=== PATIENT | male | born 1985 | race Caucasian/White ===

== ENCOUNTER 2023-05-20 20:34 | Outpatient (REF) | payer MEDICARE, MEDICAID, SELFPAY ==
--- OUTSIDE RECORDS SUMMARY | 2023-05-20 20:39 | XMS_ITS | Continuity of Care Document ---
Author Name Unknown Organization [facility] Address [address] [place] [address] Care Team Providers Care Personal Lines Sales Rep Name Role Phone Natan Sandoval Primary Care Physician Encounter [facility] Date(s): 12/28/22 - 12/28/22 [facility] [address] [place] [address] Encounter Diagnosis Dry mouth(Discharge Diagnosis) - 12/28/22 Occasional use of marijuana(Discharge Diagnosis) - 12/28/22 Discharge Disposition: Home or Self Care Attending Physician: Lino Bernardo MD Admitting Physician: Lino Bernardo MD Allergies, Adverse Reactions, Alerts Substance Reaction Severity Status BEE VENOM PROTEIN (HONEY BEE) Unknown Active INSECT VENOM Unknown Active penicillins Unknown Active Assessment and Plan Extracted from: Title:Clinical Document Author:Courtney Landrum te:12/28/22 Diagnosis: 1. Dry mouth Comment: Diagnosis: 2. Occasional use of marijuana Comment: Diagnosis: Mouth pain Comment: Diagnosis: Skin rash Comment: Future Appointments Future Scheduled Tests Laboratory* Semen Analysis Post Vasectomy 06/25/22 Radiology* XR Ankle Complete 3+ Views Left 12/16/22 * XR Ankle Complete 3+ Views Left 12/16/22 Functional Status 12/28/22 Family Member Travel History No recent t ravel Recent Travel History No recent travel Other exposure to Infectious Disease Non e Immunizations Given and Recorded Vaccine Date Status Refusal Reason tetanus/diphth/pertuss (Tdap) adult/adol 04/30/22 Given tetanus/diphth/pertuss (Tdap) adult/adol 08/21/11 Recorded influenza virus vaccine, inactivated 04/30/22 Give n SARS-CoV-2 mRNA (todiyanameran 12y+) bival 04/30/22 Given influenza virus vaccine, live 1 03/01/21 Recorded influenza virus vaccine, live 05/11/20 Recorded SARS-CoV-2 (COVID-19) mRNA-1273 vaccine 09/05/20 R ecorded SARS-CoV-2 (COVID-19) mRNA-1273 vaccine 08/08/20 R ecorded hepatitis B adult vaccine 05/10/05 Recorded hepatitis B adult vaccine 10/29/04 Recorded hepatitis B adult vaccine 09/18/04 Recorded hepatitis B pediatric vaccine 05/09/05 Recorded hepatitis B pediatric vaccine 10/16/04 Recorded hepatitis B pediatric vaccine 02/08/99 Recorded hepatitis B pediatric vaccine 09/02/97 Recorded tetanus-diphth toxoids (Td) adult/adol 02/11/04 Re corded 1Result Comment: cleanse area well Medications EpiPen 2-Rex 0.3 mg injectable kit 0.3 mg =, IM, Once, # 1 EA, 0 Refill(s), Pharmacy: [id number], 175.28, cm, 11/17/21 8:57:00 EDT, Height/Length Dosing, 168.28, kg, 11/17/21 8:57:00 EDT, Weight Dosing Start Date: 12/24/21 Status: Ordered Gas-X Prevention 600 units oral capsule 600 units 1 cap, Oral, BID, PRN as needed for gas, # 60 cap, 1 Refill(s), Pharmacy: [facility] [place], 178, cm, 01/15/22 8:47:00 EDT, Height/Length Dosing, 160, kg, 01/15/22 8:47:00 EDT, Weight Dosing Start Date: 09/24/22 Status: Ordered ibuprofen 600 mg oral tablet See Instructions Start Date: 11/21/21 Status: Ordered Lexapro 10 mg oral tablet 10 mg = 1 tab, Oral, Daily, # 90 tab, 3 Refill(s), Pharmacy: [facility] [place], 178, cm, 01/15/22 8:47:00 EDT, Height/Length Dosing, 160, kg, 01/15/22 8:47:00 EDT, Weight Dosing Start Date: 09/24/22 Status: Ordered pantoprazole 40 mg oral delayed release tablet 1 tab, Oral, BID, # 56 tab, 0 Refill(s), Pharmacy: [facility] [id number], 175, cm, 12/07/22 16:45:00 EDT, Height/Length Dosing, 151, kg, 12/07/22 16:45:00 EDT, Weight Dosing Start Date: 12/23/22 Status: Ordered Rybelsus 14 mg oral tablet 14 mg = 1 tab, Oral, Daily, take at least 30 minutes before first food, beverage, or other oral meds, # 90 tab, 3 Refill(s), Pharmacy: [facility] [place], 178, cm, 01/15/22 8:47:00 EDT, Height/Length Dosing, 160, kg, 01/15/22 8:47:00 EDT, Weight Dosing Start Date: 09/24/22 Status: Ordered SEROquel 100 mg oral tablet 100 mg = 1 tab, Oral, every evening, # 90 tab, 3 Refill(s), Pharmacy: [facility] [place], 178, cm, 01/15/22 8:47:00 EDT, Height/Length Dosing, 160, kg, 01/15/22 8:47:00 EDT, Weight Dosing Start Date: 09/24/22 Status: Ordered Problem List Condition Confirmation Course Effective Dates Status H ealth Status Informant Allergic reaction to bee sting Confirmed Active Anxiety Confirmed Active Attention deficit hyperactivity disorder, predominantly inattentive type Confirmed 12/01/20 Active Chronic gingivitis Confirmed 12/01/20 Active Depressive disorder Confirmed 08/06/22 Active Developmental delay Confirmed 12/01/20 Active Dysphagia Confirmed 12/01/20 Active Gastroesophageal reflux disease Confirmed 12/01/20 Active H/O: alcoholism Confirmed 12/01/20 Active History of drug abuse Confirmed 12/01/20 Active Intermittent explosive disorder Confirmed 12/01/20 Active Low self-esteem Confirmed 12/01/20 Active Major depressive disorder Confirmed 12/01/20 Active Obesity Confirmed Active Obstructive sleep apnea syndrome Confirmed Active Severe obesity Confirmed Active Left ankle sprain Confirmed Active Dermatophytosis of the trunk Confirmed Active Umbilical hernia Confirmed Active Ureterolithiasis Confirmed Active Vitamin D deficiency Confirmed 12/01/20 Active Procedures Procedure Date Related Diagnosis Body Site Status Cystoureteroscopy 02/20/22 Complet ed Hernia repair 02/21/21 Completed EGD - Esophagogastroduodenoscopy 1 01/11/21 Completed Barium swallow 09/07/20 Completed MRI of brain 09/26/02 Completed Eye surgery 2 05/11/96 Completed Wrist surgery 3 Completed 1Gerd, esophagitis, gastritis, small hiatal hernia 2repair of left orbit after trauma 3ORIF Left distal radius Results Laboratory List Name Date Strep A (ID NOW) 12/28/22 Most recent to oldest [Reference Range]: 1 Strep A -IDNOW [Not Detected] Not Detect ed (12/28/22 11:20 AM) Vital Signs Most recent to oldest [Reference Range]: 1 Temperature Temporal Artery [36-38 Deg C ] 36.0 Deg C (12/28/22 11:01 AM) Peripheral Pulse Rate [60-100 bpm] 85 bp m (12/28/22 11:01 AM) Respiratory Rate [12-24 br/min] 18 br/mi n (12/28/22 11:01 AM) Blood Pressure [90-140/60-90 mmHg] 157/1 35mmHg *HI* (12/28/22 11:01 AM) Weight Dosing 152.00 kg (12/28/22 11:06 AM) Weight Estimated 152.00 kg (12/28/22 11:01 AM) Height/Length Dosing 176.000 cm (12/28/22 11:06 AM) Height/Length Estimated 176.000 cm (12/28/22 11:01 AM) Social History Social History Type Response Tobacco Former tobacco user Tobacco Use:. Sex Male Hospital Discharge Instructions Patient Education 12/28/2022 10:59:11 Preventing Marijuana Misuse Preventing Marijuana Misuse Marijuana is a mixture of the dried leaves and sears of the hemp plant Cannabis sativa. The plant's active ingredients (cannabinoids) change the chemistry of the brain. If you smoke or eat marijuana, you will experience changes in the way you think, feel, and behave. What is marijuana used for? In some cases, marijuana is prescribed by a health care provider (medical marijuana) for temporary relief from a medical condition. It can have medical effects, such as: ??? Reduced nausea. ??? Increased appetite. ??? Reduced muscle spasm. ??? Pain relief. ??? Anxiety relief. Many people use marijuana for recreational purposes because it helps them relax and puts them in a pleasurable mood (marijuana high). How can marijuana use affect me? Marijuana affects you both mentally and physically. Using marijuana can make you feel high and relaxed. It can also have negative effects, both short term and oil heaterman. When used for recreational purposes, marijuana is often used in higher doses and for longer periods. High doses of marijuana can cause unpleasant side effects. It is also possible to become addicted to this drug. Short-term effects of marijuana use include: ??? Changes in mood and perception, such as an altered sense of time. ??? Increased heart rate. ??? Increased appetite. ??? Slowed movement, coordination, and reaction time. ??? Poor memory, judgment, and problem-solving ability. ??? Drowsiness. ??? Bloodshot eyes and changes in vision. ??? Coughing. High doses of marijuana can cause: ??? Panic. ??? Anxiety. ??? Mental confusion. ??? Severe dizziness. ??? Vomiting. ??? Hallucinations. This means you see, hear, taste, smell, or feel things that are not real. ??? Coma. What can happen if I keep using marijuana? If you use marijuana for a long time, it can have long-term effects such as: ??? Higher risk of health problems, such as: ??? Lung and breathing problems. ??? Possible higher risk of heart and cardiovascular problems or testicular cancer. ??? Mental and physical dependence (addiction). ??? Slowed brain development in young people. Babies whose mothers used marijuana during may have an increased risk of problems with brain development and behavior. ??? Hallucinations or temporary periods of false perceptions or beliefs (paranoia). ??? Worsening of mental illness or onset of new mental illness. This can include anxiety, depression, or suicidal thoughts. ??? Difficulty maintaining healthy relationships. ??? Poor memory and difficulty concentrating and learning. This can result in decreased intelligence, poor performance at school or work, and an increased risk of dropping out of school. ??? Higher risk of using other substances like alcohol, nicotine, and illegal drugs. ??? A condition called cannabinoid hyperemesis syndrome. This causes repeated episodes of intense abdominal pain, nausea, and vomiting. Quitting marijuana after using it for a long time can cause withdrawal symptoms, such as: ??? Headache. ??? Shakiness. ??? Cravings for the drug. ??? Sweating. ??? Stomach pain, nausea, and vomiting. ??? Restlessness and trouble sleeping. ??? Anxiety, irritability, and anger. ??? Decreased appetite. What are the benefits of not using marijuana? Not using marijuana can keep you from becoming dependent on it. You can avoid the drug's negative effects on your quality of life. You can avoid accidents caused by the slowed reaction time and decreased thinking ability that are common with marijuana use and abuse. You can also prevent the long-term effects that this drug can cause. What actions can I take to stop using marijuana? If you are not physically or mentally dependent on marijuana, you should be able to stop using it on your own. Taking these actions may help: ??? Find healthy ways to cope with stress, such as exercise, meditation, or spending time with family and friends. Talk with your health care provider about how you feel and how to cope with stress. ??? Spend time with people who do not use marijuana, or make new friends who do not use marijuana. ??? Do something else instead of using marijuana. You can exercise, take up a hobby, or participatein activities that you can do with others. ??? Do not be afraid to say no if someone offers you marijuana. Speak up about why you do not want to use drugs. You can be a positive role model for others. If you cannot stop on your own, ask your health care provider for help. Treatment for marijuana addiction is similar to treatment for other addictions. It may include: ??? Cognitive-behavioral therapy (psychotherapy). This may include individual or group therapy. ??? Joining a support group. ??? Treating medical, behavioral, or mental health conditions that exist along with marijuana dependency. Where to find more information Learn more about: ??? Marijuana from the [place] National [place] on Drug Abuse: www.drugabuse.gov ??? Medical marijuana from the National Institutes of Health: nccih.nih.gov ??? Treatment options from the Substance Abuse and Mental Health Services Administration: samhsa.gov ??? Recovery from marijuana dependency from Recovery.org: www.recovery.org Contact a health care provider if: ??? You want to stop using marijuana but you cannot. ??? You have withdrawal symptoms when you try to stop using marijuana. ??? You are using marijuana every day. ??? You need to use increasing amounts of marijuana to get the same desired effect. ??? You are using marijuana along with other drugs like cocaine or alcohol. ??? You have anxiety or depression. ??? You have hallucinations or paranoia. ??? Marijuana use is interfering with your relationships or your ability to function normally at school or at work. Get help right away if: ??? You develop severe chest pain, dizziness, or shortness of breath. ??? You have severe abdominal pain, nausea, and vomiting. Summary ??? Using marijuana can make you feel high and relaxed, and if used properly, it can have some medical benefits. However, it can also have negative effects, both short term and oil heaterman. ??? High doses of marijuana can cause unpleasant side effects. These can be both physical and mental. ??? Marijuana has the potential to cause physical dependence and even addiction. ??? Long-term use may interfere with your ability to function normally at home, school, or work. Itcan sometimes lead to using other substances like alcohol, nicotine, and illegal drugs. ??? If you need help to stop using marijuana, ask your health care provider. Marijuana addiction can be treated. This information is not intended to replace advice given to you by your health care provider. Make sure you discuss any questions you have with your health care provider. Document Revised: 03/22/2022 Document Reviewed: 02/23/2020 [employer] Patient Education ?? 2022 [employer]. Follow Up Care 12/28/2022 11:01:30 With:Natan Sandoval MD Address: [facility] [address] [address]- When:1 month Physician Emergency department Note * Lino Bernardo MD: PERFORM Event Display: ED Note Physician Authored Date: [id number] DANIELITO WOODY :1985 Age:37 years Sex:Male Visit Date:12/28/2022 Primary Care Physician: Natan Sandoval MD Basic Information Time Seen: Lino Bernardo MD / 12/28/2022 11:07 Chief Complaint I did some edibles last night and I was drinking, my ??mouth feels like it's caving in, and my throat hurts, and I have a rash down below. PT denies SOB, RR unlabored History Of Present Illness: 37-year-old male??past medical history reflux,??alcohol use, depression, ARON, obesity presents with??concern for a skin rash, and sensation of??his mouth and jaw caving in. ??He states he??first noticed the symptoms after he??ate some edibles last night. ??He also was complaining of a dry mouth andstates that he felt like his??jaw was going to cave and??and was concerned about his jaw falling off.?? He also was complaining about a rash around the groin area and lower abdominal area. ??No pruritus or pain to the rash itself. ??No sickness recently cough cold congestion or fevers no chest painshortness of breath??or throat swelling. Review of Systems: Dry mouth, rash Physical Exam Vitals & Measurements T:??36.0?C ??(Temporal Artery)?? HR:??85??(Peripheral)?? RR:??18?? BP:??157/135?? SpO2:??95%?? HT:??176.000??cm?? WT:??152.00??kg??(Estimated)?? O2 Therapy:??Room air?? General: Alert and oriented, well nourished,?No??acute distress Eye: PERRL, EOMI,?Normal?conjunctiva HENT: Normocephalic Lungs: Clear to auscultation and percussion,?Non-labored?? respiration Heart:?Normal? rate,?Regular??rhythm Abdomen: Soft, non-tender, non-distended Skin: There is no evidence of erythema or skin breakdown underneath the skin folds of the abdomen of the groin bilaterally, slight skin discoloration in this area underneath the skin folds themselves Neurologic: Awake, alert and oriented X4, CN II-XII intact Psychiatric: Cooperative, appropriate mood and affect Medical Decision Makin-year-old male presents with multiple complaints,??see above. ??Vitals are stable. ??Patient states he noticed the symptoms of dry mouth and felt like his jaw was caving in after he??ate edibles last night, this is the likely etiology of his symptoms. ??He does have slightly dry mouth here, instructed??on proper hydration. ??He also had a concern about a rash around his groin area, clinically there is no evidence of a rash here, no evidence of candidal infection or skin breakdown of the lowerabdominal folds with the bilateral groin, there is however skin discoloration that is more chronic in nature??secondary to??skin on skin from??patient's obesity.?? He??requested a strep test which was performed and was negative.?? Otherwise clinically no acute respiratory distress no throat swelling or any other symptoms discharged in stable condition with primary care follow-up and return precautions 80. Procedure No Qualifying Data Assessment/Plan 1.??Dry mouth??R68.2 Ordered: Discharge Patient, 12/28/22 11:58:00 EDT, Home Independently, Constant Indicator ?? 2.??Occasional use of marijuana??F12.90 Ordered: Discharge Patient, 12/28/22 11:58:00 EDT, Home Independently, Constant Indicator ?? Patient Education Preventing Marijuana Misuse Follow Up With When Contact Information Natan Sandoval MD Within [address] [facility] [place] [address]- Additional Instructions: Medication Reconciliation Unchanged oqyar-P-evicrzrkyxgff (Gas-X Prevention 600 units oral capsule)1 Capsules Oral (given by mouth) 2 times a day as needed as needed for gas. Refills: 1. ?? EPINEPHrine (EpiPen 2-Rex 0.3 mg injectable kit)0.3 Milligrams Intramuscular (in a muscle) once. Refills: 0. ?? escitalopram (Lexapro 10 mg oral tablet)1 tab Oral (given by mouth) every day. Refills: 3. ?? ibuprofen (ibuprofen 600 mg oral tablet) ?? pantoprazole (pantoprazole 40 mg oral delayed release tablet)1 tab Oral (given by mouth) 2 times a day. Refills: 0. ?? QUEtiapine (SEROquel 100 mg oral tablet)1 tab Oral (given by mouth) every evening. Refills: 3. ?? semaglutide (Rybelsus 14 mg oral tablet)1 tab Oral (given by mouth) every day. take at least 30 minutes before first food, beverage, or other oral meds. Refills: 3. Problem List/Past Medical History Ongoing Allergic reaction to bee sting Anxiety Attention deficit hyperactivity disorder, predominantly inattentive type Chronic gingivitis Depressive disorder Dermatophytosis of the trunk Developmental delay Dysphagia Gastroesophageal reflux disease H/O: alcoholism History of drug abuse Intermittent explosive disorder Left ankle sprain Low self-esteem Major depressive disorder Obesity Obstructive sleep apnea syndrome Severe obesity Umbilical hernia Ureterolithiasis Vitamin D deficiency Historical No qualifying data Procedure/Surgical History ???Cystoureteroscopy (02/21/2022)???Hernia repair (02/22/2021)???EGD - Esophagogastroduodenoscopy (01/12/2021)???Barium swallow (09/08/2020)???MRI of brain (09/27/2002)???Eye surgery (05/12/1996)???Wrist surgery Allergies BEE VENOM PROTEIN (HONEY BEE) INSECT VENOM penicillins Social History Alcohol Current, 1-2 times per week Electronic Cigarette/Vaping Electronic Cigarette Use: Former use, quit more than 90 days ago. Employment/School Employed Home/Environment Lives with Alone. Living situation: Home/Independent. Substance Use Past, Marijuana Tobacco Former tobacco user Tobacco Use:. Family History Healthy adult: Mother and Father. Lab Results Infectious Disease?? LATEST RESULTS?? Strep A -IDNOW?? 12/28/22 11:20?? Not Detected? Electronically Signed on 12/28/22 11:59 AM Lino Bernardo MD Emergency department Discharge instructions * Lino Bernardo MD: PERFORM Event Display: ED Discharge Information Authored Date: [id number] DANIELITO WOODY :1985 Age:37 years Sex:Male Visit Date:12/28/2022 Primary Care Physician: Natan Sandoval MD Discharge Instructions We would like to thank you for allowing us to assist you with your healthcare needs. The following includes patient education materials and information regarding your injury/illness. Diagnosis from Today's Visit Dry mouth Occasional use of marijuana Discharge Vitals Temperature??(Temporal Artery) 96.8 ??F (36.0 ??C) Heart Rate??(Peripheral) 85 Respiratory Rate?? 18 Blood Pressure?? 157/135?? Height?? 69.29 in (176.000 cm) Weight??(Estimated) 335.16 lb (152.00 kg) Allergies BEE VENOM PROTEIN (HONEY BEE) INSECT VENOM penicillins What to Do Next You Need to Schedule the Following Appointments Follow Up with??Natan Sandoval MD When:??Within 1 month Where: [address] [address] Upcoming Scheduled Appointments Friday 10:00 AM EDT ?? Friday 8:30 AM EST ?? 2022 8:40 AM EST ?? You were treated today on an emergency basis; it may be ayala to contact your primary care provider to notify them of your visit today. You may have been referred to your regular doctor or a specialist, please follow up as instructed. If your condition worsens or you can't get in to see the doctor, contact the Emergency Department. Medications What How Much When Why Instructions Next Dose Unchanged oonhd-S-egxezfmueumkg (Gas-X Prevention 600units oral capsule) 1 Capsules Oral (given by mouth) 2 times a day as needed for as needed for gas Gastroesophageal reflux disease Unchanged EPINEPHrine (EpiPen 2-Rex 0.3 mg injectable kit) 0.3 Milligrams Intramuscular (in a muscle) Once Unchanged escitalopram (Lexapro 10 mg oral tablet) 1 tab Oral (given by mouth) Every day Unchanged ibuprofen (ibuprofen 600 mg oral tablet) See instructions Unchanged pantoprazole (pantoprazole 40 mg oral delayed release tablet) 1 tab Oral (given by mouth) 2 times a day Unchanged QUEtiapine (SEROquel 100 mg oral tablet) 1 tab Oral (given by mouth) Every evening Unchanged semaglutide (Rybelsus 14 mg oral tablet) 1 tab Oral (given by mouth) Every day Hyperglycemia Severe obesity take at least 30 minutes before first food, beverage, or other oral meds ?? Education Materials Preventing Marijuana Misuse Marijuana is a mixture of the dried leaves and sears of the hemp plant Cannabis sativa. The plant's active ingredients (cannabinoids) change the chemistry of the brain. If you smoke or eat marijuana, you will experience changes in the way you think, feel, and behave. What is marijuana used for? In some cases, marijuana is prescribed by a health care provider (medical marijuana) for temporary relief from a medical condition. It can have medical effects, such as: ? Reduced nausea. ? Increased appetite. ? Reduced muscle spasm. ? Pain relief. ? Anxiety relief. Many people use marijuana for recreational purposes because it helps them relax and puts them in a pleasurable mood (marijuana high). How can marijuana use affect me? Marijuana affects you both mentally and physically. Using marijuana can make you feel high and relaxed. It can also have negative effects, both short term and oil heaterman. When used for recreational purposes, marijuana is often used in higher doses and for longer periods. High doses of marijuana can cause unpleasant side effects. It is also possible to become addicted to this drug. Short-term effects of marijuana use include: ? Changes in mood and perception, such as an altered sense of time. ? Increased heart rate. ? Increased appetite. ? Slowed movement, coordination, and reaction time. ? Poor memory, judgment, and problem-solving ability. ? Drowsiness. ? Bloodshot eyes and changes in vision. ? Coughing. High doses of marijuana can cause: ? Panic. ? Anxiety. ? Mental confusion. ? Severe dizziness. ? Vomiting. ? Hallucinations. This means you see, hear, taste, smell, or feel things that are not real. ? Coma. What can happen if I keep using marijuana? If you use marijuana for a long time, it can have long-term effects such as: ? Higher risk of health problems, such as: ? Lung and breathing problems. ? Possible higher risk of heart and cardiovascular problems or testicular cancer. ? Mental and physical dependence (addiction). ? Slowed brain development in young people. Babies whose mothers used marijuana during may have an increased risk of problems with brain development and behavior. ? Hallucinations or temporary periods of false perceptions or beliefs (paranoia). ? Worsening of mental illness or onset of new mental illness. This can include anxiety, depression, or suicidal thoughts. ? Difficulty maintaining healthy relationships. ? Poor memory and difficulty concentrating and learning. This can result in decreased intelligence, poor performance at school or work, and an increased risk of dropping out of school. ? Higher risk of using other substances like alcohol, nicotine, and illegal drugs. ? A condition called cannabinoid hyperemesis syndrome. This causes repeated episodes of intense abdominal pain, nausea, and vomiting. Quitting marijuana after using it for a long time can cause withdrawal symptoms, such as: ? Headache. ? Shakiness. ? Cravings for the drug. ? Sweating. ? Stomach pain, nausea, and vomiting. ? Restlessness and trouble sleeping. ? Anxiety, irritability, and anger. ? Decreased appetite. What are the benefits of not using marijuana? Not using marijuana can keep you from becoming dependent on it. You can avoid the drug's negative effects on your quality of life. You can avoid accidents caused by the slowed reaction time and decreased thinking ability that are common with marijuana use and abuse. You can also prevent the long-term effects that this drug can cause. What actions can I take to stop using marijuana? If you are not physically or mentally dependent on marijuana, you should be able to stop using it on your own. Taking these actions may help: ? Find healthy ways to cope with stress, such as exercise, meditation, or spending time with family and friends. Talk with your health care provider about how you feel and how to cope with stress. ? Spend time with people who do not use marijuana, or make new friends who do not use marijuana. ? Do something else instead of using marijuana. You can exercise, take up a hobby, or participate in activities that you can do with others. ? Do not be afraid to say no if someone offers you marijuana. Speak up about why you do not want to use drugs. You can be a positive role model for others. If you cannot stop on your own, ask your health care provider for help. Treatment for marijuana addiction is similar to treatment for other addictions. It may include: ? Cognitive-behavioral therapy (psychotherapy). This may include individual or group therapy. ? Joining a support group. ? Treating medical, behavioral, or mental health conditions that exist along with marijuana dependency. Where to find more information Learn more about: ? Marijuana from the [place] on Drug Abuse: www.drugabuse.gov ? Medical marijuana from the National Institutes of Health: nccih.nih.gov ? Treatment options from the Substance Abuse and Mental Health Services Administration: samhsa.gov ? Recovery from marijuana dependency from Recovery.org: www.recovery.org Contact a health care provider if: ? You want to stop using marijuana but you cannot. ? You have withdrawal symptoms when you try to stop using marijuana. ? You are using marijuana every day. ? You need to use increasing amounts of marijuana to get the same desired effect. ? You are using marijuana along with other drugs like cocaine or alcohol. ? You have anxiety or depression. ? You have hallucinations or paranoia. ? Marijuana use is interfering with your relationships or your ability to function normally at schoolor at work. Get help right away if: ? You develop severe chest pain, dizziness, or shortness of breath. ? You have severe abdominal pain, nausea, and vomiting. Summary ? Using marijuana can make you feel high and relaxed, and if used properly, it can have some medical benefits. However, it can also have negative effects, both short term and snf. ? High doses of marijuana can cause unpleasant side effects. These can be both physical and mental. ? Marijuana has the potential to cause physical dependence and even addiction. ? Long-term use may interfere with your ability to function normally at home, school, or work. It cansometimes lead to using other substances like alcohol, nicotine, and illegal drugs. ? If you need help to stop using marijuana, ask your health care provider. Marijuana addiction can betreated. This information is not intended to replace advice given to you by your health care provider. Make sure you discuss any questions you have with your health care provider. Document Revised: 03/22/2022 Document Reviewed: 02/23/2020 [employer] Patient Education ?? 2022 [employer]. 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 Dry mouth Comment: Diagnosis: 2. Occasional use of marijuana Comment: Diagnosis: Mouth pain Comment: Diagnosis: Skin rash Comment: Electronically Signed on 12/28/22 12:37 PM Courtney Landrum Patient Care team information Care Team Personnel Name: Natan Sandoval MD Position: Physician Member Role: Informed Provider Address: Address: [address] Name: Amee Blackwell Position: Nurse Member Role: ED Nurse Name: Lino Bernardo MD Position: Physician Member Role: ED Physician Address: Address: [facility] [address] [place], [place] [id number] [place] [address] Care Team Related Persons Name: JOSE WEBB
--- OUTSIDE RECORDS SUMMARY | 2023-05-20 20:39 | XMS_ITS | Continuity of Care Document ---
Author Name Unknown Organization [facility] Address [address] [place] [address] Care Team Providers Care Registered Nurse Teacher Name Role Phone Natan Sandoval Primary Care Physician [facility] [address] [place] [address] Encounter Diagnosis Left ankle sprain(Discharge Diagnosis) - 12/16/22 Discharge Disposition: Home or Self Care Attending Physician: Natan Sandoval MD Admitting Physician: Natan Sandoval MD Referring Physician: Natan Sandoval MD Allergies, Adverse Reactions, Alerts Substance Reaction Severity Status BEE VENOM PROTEIN (HONEY BEE) Unknown Active INSECT VENOM Unknown Active penicillins Unknown Active Assessment and Plan Future Appointments Future Scheduled Tests Laboratory* Semen Analysis Post Vasectomy 06/25/22 Radiology* XR Ankle Complete 3+ Views Left 12/16/22 * XR Ankle Complete 3+ Views Left 12/16/22 Immunizations Given and Recorded Vaccine Date Status Refusal Reason tetanus/diphth/pertuss (Tdap) adult/adol 04/30/22 Given tetanus/diphth/pertuss (Tdap) adult/adol 08/21/11 Recorded influenza virus vaccine, inactivated 04/30/22 Give n SARS-CoV-2 mRNA (tozinameran 12y+) bival 04/30/22 Given influenza virus vaccine, [...] Once, # 1 EA, 0 Refill(s), Pharmacy: [id number], 175.28, cm, 11/17/21 8:57:00 EDT, Height/Length Dosing, 168.28, kg, 11/17/21 8:57:00 EDT, Weight Dosing Start Date: 12/24/21 Status: Ordered Gas-X Prevention 600 units oral capsule 600 units 1 cap, Oral, BID, PRN as needed for gas, # 60 cap, 1 Refill(s), Pharmacy: [facility] [place], [place], 178, cm, 01/15/22 8:47:00 EDT, Height/Length Dosing, 160, kg, 01/15/22 8:47:00 EDT, Weight Dosing Start Date: 09/24/22 Status: Ordered ibuprofen 600 mg oral tablet See Instructions Start Date: 11/21/21 Status: Ordered Lexapro 10 mg oral tablet 10 mg = 1 tab, Oral, Daily, # 90 tab, 3 Refill(s), Pharmacy: [facility] [place], [place], 178, cm, 01/15/22 8:47:00 EDT, Height/Length Dosing, 160, kg, 01/15/22 8:47:00 EDT, Weight Dosing Start Date: 09/24/22 Status: Ordered pantoprazole 40 mg oral delayed release tablet 40 mg = 1 tab, Oral, BID, Dose increase 12/02/22, # 60 tab, 1 Refill(s), Pharmacy: [facility] [place], [place], 176, cm, 09/28/22 16:21:00 EDT, Height/Length Dosing, 162.3, kg, 09/28/22 16:21:00 EDT, Weight Dosing Start Date: 12/02/22 Status: Ordered Rybelsus 14 mg oral tablet 14 mg = 1 tab, Oral, Daily, take at least 30 minutes before first food, beverage, or other oral meds, # 90 tab, 3 Refill(s), Pharmacy: [facility], 178, cm, 01/15/22 8:47:00 EDT, Height/Length Dosing, 160, kg, 01/15/22 8:47:00 EDT, Weight Dosing Start Date: 09/24/22 Status: Ordered SEROquel 100 mg oral tablet 100 mg = 1 tab, Oral, every evening, # 90 tab, 3 Refill(s), Pharmacy: [facility], 178, cm, 01/15/22 8:47:00 EDT, Height/Length Dosing, [...] orbit after trauma 3ORIF Left distal radius Social History Social History Type Response Tobacco Former tobacco user Tobacco Use:. Sex Male Patient Care team information Care Team Personnel Name: Natan Sandoval MD Position: Physician Member Role: Informed Provider Address: Address: [address] Care Team Related Persons Name: JOSE WEBB
--- OUTSIDE RECORDS SUMMARY | 2023-05-20 20:39 | XMS_ITS | Continuity of Care Document ---
Author Name Unknown Organization [facility] Address [address] [place] [address] Care Team Providers Care Hotel Clerk Name Role Phone Natan Sandoval Primary Care Physician [facility] Date(s): 12/03/22 - 12/03/22 [facility] [address] [place] [address] Encounter Diagnosis Lesion of penis(Discharge Diagnosis) - 12/03/22 Discharge Disposition: Home or Self Care Attending Physician: Lino Bernardo MD Admitting Physician: Lino Bernardo MD Allergies, Adverse Reactions, Alerts Substance Reaction Severity Status BEE VENOM PROTEIN (HONEY BEE) Unknown Active INSECT VENOM Unknown Active penicillins Unknown Active Assessment and Plan Extracted from: Title:Clinical Document Author:Courtney Landrum te:12/03/22 Diagnosis: 1. Lesion of peni s Comment: Diagnosis: Testicular pain Comment: Future Appointments Future Scheduled Tests Laboratory* Semen Analysis Post Vasectomy 06/25/22 Functional Status 12/03/22 Family Member Travel History No recent t [...] Once, # 1 EA, 0 Refill(s), [facility]: [facility], 175.28, cm, 11/17/21 8:57:00 EDT, Height/Length Dosing, 168.28, kg, 11/17/21 8:57:00 EDT, Weight Dosing Start Date: 12/24/21 Status: Ordered Gas-X Prevention 600 units oral capsule 600 units 1 cap, Oral, BID, PRN as needed for gas, # 60 cap, 1 Refill(s), Pharmacy: [facility], 178, cm, 01/15/22 8:47:00 EDT, Height/Length Dosing, 160, kg, 01/15/22 8:47:00 EDT, Weight Dosing Start Date: 09/24/22 Status: Ordered ibuprofen 600 mg oral tablet See Instructions Start Date: 11/21/21 Status: Ordered Lexapro 10 mg oral tablet 10 mg = 1 tab, Oral, Daily, # 90 tab, 3 Refill(s), Pharmacy: [facility], 178, cm, 01/15/22 8:47:00 EDT, Height/Length Dosing, 160, kg, 01/15/22 8:47:00 EDT, Weight Dosing Start Date: 09/24/22 Status: Ordered nystatin 100,000 units/g topical powder 1 timothy, Topical, BID, # 15 g, 0 Refill(s), 12/08/22 7:02:00 EDT, Pharmacy: [facility], 177, cm, 12/03/22 6:28:00 EDT, Height/Length Dosing, 156.49, kg, 12/03/22 6:28:00 EDT, Weight Dosing Start Date: 12/03/22 Stop Date: 12/08/22 Status: Ordered pantoprazole 40 mg oral delayed release tablet 40 mg = 1 tab, Oral, BID, Dose increase 12/02/22, # 60 tab, 1 Refill(s), Pharmacy: [facility], 176, cm, 09/28/22 16:21:00 EDT, Height/Length Dosing, 162.3, kg, 09/28/22 16:21:00 EDT, Weight Dosing Start Date: 12/02/22 Status: Ordered Rybelsus 14 mg oral tablet 14 mg = 1 tab, Oral, Daily, take at least 30 minutes before first food, beverage, or other oral meds, # 90 tab, 3 Refill(s), Pharmacy: [facility], 178, cm, 01/15/22 8:47:00 EDT, Height/Length Dosing, 160, kg, 01/15/22 8:47:00 EDT, Weight... Start Date: 09/24/22 Status: Ordered SEROquel 100 mg oral tablet 100 mg = 1 tab, Oral, every evening, # 90 tab, 3 Refill(s), Pharmacy: [facility], 178, cm, 01/15/22 8:47:00 EDT, Height/Length Dosing, [...] syndrome Confirmed Active Severe obesity Confirmed Active Dermatophytosis of the trunk Confirmed [...] orbit after trauma 3ORIF Left distal radius Vital Signs Most recent to oldest [Reference Range]: 1 Temperature Temporal Artery [36-38 Deg C ] 36.3 Deg C (12/03/22 6:20 AM) Peripheral Pulse Rate [60-100 bpm] 67 bp m (12/03/22 6:20 AM) Respiratory Rate [12-24 br/min] 18 br/mi n (12/03/22 6:20 AM) Blood Pressure [90-140/60-90 mmHg] 177/1 01mmHg *HI* (12/03/22 6:20 AM) Weight Dosing 156.49 kg (12/03/22 6:28 AM) Weight Estimated 156.49 kg (12/03/22 6:20 AM) Height/Length Dosing 177.000 cm (12/03/22 6:28 AM) Height/Length Estimated 177.000 cm (12/03/22 6:20 AM) Social History Social History Type Response Tobacco Former tobacco user Tobacco Use:. Sex Male Hospital Discharge Instructions Patient Education 12/03/2022 06:02:55 Skin Yeast Infection Skin Yeast Infection A skin yeast infection is a condition in which there is an overgrowth of yeast (Lisset) that normally lives on the skin. This condition usually occurs in areas of the skin that are constantly warm and moist, such as the skin under the breasts or armpits, or in the groin and other body folds. What are the causes? This condition is caused by a change in the normal balance of the yeast that live on the skin. What increases the risk? You are more likely to develop this condition if you: ??? Are obese. ??? Are . ??? Are 65 years of age or older. ??? Wear tight clothing. ??? Have any of the following conditions: ??? Diabetes. ??? Malnutrition. ??? A weak body defense system (immune system). ??? Take medicines such as: ??? control pills. ??? Antibiotics. ??? Steroid medicines. What are the signs or symptoms? The most common symptom of this condition is itchiness in the affected area. Other symptoms include: ??? A red, swollen area of the skin. ??? Bumps on the skin. How is this diagnosed? This condition is diagnosed with a medical history and physical exam. Your health care provider maycheck for yeast by taking scrapings of the skin to be viewed under a microscope. How is this treated? This condition is treated with medicine. Medicines may be prescribed or available over the counter.The medicines may be: ??? Taken by mouth (orally). ??? Applied as a cream or powder to your skin. Follow these instructions at home: ??? Take or apply bgrn-iey-khgryzg and prescription medicines only as told by your health care provider. ??? Maintain a healthy weight. If you need help losing weight, talk with your health care provider. ??? Keep your skin clean and dry. ??? Wear loose-fitting clothing. ??? If you have diabetes, keep your blood sugar under control. ??? Keep all follow-up visits. This is important. Contact a health care provider if: ??? Your symptoms go away and then come back. ??? Your symptoms do not get better with treatment. ??? Your symptoms get worse. ??? Your rash spreads. ??? You have a fever or chills. ??? You have new symptoms. ??? You have new warmth or redness of your skin. ??? Your rash is painful or bleeding. Summary ??? A skin yeast infection is a condition in which there is an overgrowth of yeast (Lisset) that normally lives on the skin. ??? Take or apply rawm-jcm-fcovvqb and prescription medicines only as told by your health care provider. ??? Keep your skin clean and dry. ??? Contact a health care provider if your symptoms do not get better with treatment. This information is not intended to replace advice given to you by your health care provider. Make sure you discuss any questions you have with your health care provider. Document Revised: 07/17/2021 Document Reviewed: 07/17/2021 Elsevier Patient Education ?? 2022 [employer] Follow Up Care 12/03/2022 06:20:07 With:Natan Sandoval MD Address: [facility] [address] [address]- When:1 month Physician Emergency department Note * Lino Bernardo MD: PERFORM Event Display: ED Note Physician Authored Date: [id number] DANIELITO WOODY :1985 Age:37 years Sex:Male Visit Date:12/03/2022 Primary Care Physician: Natan Sandoval MD Basic Information Time Seen: Lino Bernardo MD / 12/03/2022 06:34 Chief Complaint pt states having trouble with my penis its all red and feels like my balls are inside me. symptoms started around 0500. pt also states sometimes when I ejaculate its all watery and I dont know what thats all about History Of Present Illness: 37-year-old male past medical history alcoholism, reflux, history of drug use, umbilical hernia, obesity presents with concern about??testicles and penis going back up inside him. ??This been goingon for??quite a long time he states, months to years.?? More recently he noticed some redness around the tip of the penis, he denies any pain with this. ??There is no dysuria or hematuria or flank pain. ??He does not have any testicular pain or redness. ??There is no abdominal pain??nausea vomitingor any other symptoms, just the redness itself that he was concerned about. ??He reports being circumcised.?? Patient has not been sexually active for over a year. Review of Systems: Penis lesion Physical Exam Vitals & Measurements T:??36.3?C ??(Temporal Artery)?? HR:??67??(Peripheral)?? RR:??18?? BP:??177/101?? SpO2:??96%?? HT:??177.000??cm?? WT:??156.49??kg??(Estimated)?? O2 Therapy:??Room air?? General: Alert and oriented, well nourished,?No??acute distress Eye: PERRL, EOMI,?Normal?conjunctiva HENT: Normocephalic Lungs: Clear to auscultation and percussion,?Non-labored?? respiration Heart:?Normal? rate,?Regular??rhythm Abdomen: Soft, non-tender, non-distended, there is no abdominal pain??on palpation Skin: There is no testicular pain to the touch, no redness to bilateral testicles. ??Penis is retracted but circumcised,??there is some redness??around the urethral opening itself Neurologic: Awake, alert and oriented X4 Medical Decision Makin-year-old male presents with??concern about his testicles and penis??going back up inside him, he also has concern about some redness on the tip of the penis??that he more recently noted. ??Vitals are stable.?? On exam, he has no clinical??evidence of a torsion, there is no redness or any testicular pain whatsoever. ??There is no abdominal pain whatsoever with this??and no reproducible abdominal pain.?? Patient??is obese, and the penis is retracted??and not immediately visible, however??when retrieved, he does have??evidence of a red lesion around the urethral opening. ??He has not been se xually active over a year,??and there are no vesicles, and there is no pain so doubt herpes.?? He is not concerned about sexually transmitted infections at this time.?? Clinically is not presenting with a urinary tract infection either??given no symptoms of this.?? Lesion around the??urethral opening is not entirely clear??exactly what it is, however his penis given his obesity??seems to be??retracted more than not, leading to an environment??of moisture and this may reflect??small yeast infection. ??Was given??topical??nystatin powder??prescription??for application of the area to try to keepit dry and treat for possible infection.?? He did have another concern towards the end of the encounter he states he??ejaculates and it??seems more watery than normal.?? Exact etiology of this is notentirely clear, however he states he is already been seeing primary care as an outpatient for this and??states he has??an order to??provide a sample for analysis??at any time.?? No clinical indication for further imaging??or ultrasound for evaluation of torsion or??epididymitis. ??Discharge stable condition return precautions ED and primary care follow-up. Procedure No Qualifying Data Assessment/Plan 1.??Lesion of penis??N48.9 Ordered: nystatin 100,000 units/g topical powder, 1 timothy, Topical, BID, # 15 g, 0 Refill(s), 12/08/22 7:02:00EDT, Pharmacy: [facility], 177, cm, 12/03/22 6:28:00 EDT, Height/Length Dosing, 156.49, kg, 12/03/22 6:28:00 EDT, Weight Dosing Discharge Patient, 12/03/22 7:01:00 EDT, Home Independently, Constant Indicator ?? Patient Education Skin Yeast Infection Follow Up With When Contact Information Natan Sandoval MD Within 1 [place] [address]- Additional Instructions: Medication Reconciliation New Prescription nystatin topical (nystatin 100,000 units/g topical powder)1 Application Topical (on the skin) 2 times a day. Refills: 0. ?? Unchanged iykjc-T-difyttzrwllfa (Gas-X Prevention 600 units oral capsule)1 Capsules [...] (given by mouth) 2 times a day. Dose increase 12/02/22. Refills: 1. ?? QUEtiapine (SEROquel 100 mg oral tablet)1 [...] History of drug abuse Intermittent explosive disorder Low self-esteem Major depressive disorder Obesity Obstructive [...] with Alone. Living situation: Home/Independent. Substance Use Never, Marijuana Tobacco Former tobacco user Tobacco Use:. Family History Healthy adult: Mother and Father. Electronically Signed on 12/03/22 07:03 AM Lino Bernardo MD Emergency department Discharge instructions * Lino Bernardo MD: PERFORM Event Display: ED Discharge Information Authored Date: [id number] DANIELITO WOODY :1985 Age:37 years Sex:Male Visit Date:12/03/2022 Primary Care Physician: Jaime, Natan N MD Discharge Instructions We would like to thank you for allowing us to assist you with your healthcare needs. The following includes patient education materials and information regarding your injury/illness. Diagnosis from Today's Visit Lesion of penis Discharge Vitals Temperature??(Temporal Artery) 97.3 ??F (36.3 ??C) Heart Rate??(Peripheral) 67 Respiratory Rate?? 18 Blood Pressure?? 177/101?? Height?? 69.69 in (177.000 cm) Weight??(Estimated) 345.06 lb (156.49 kg) Allergies BEE VENOM PROTEIN (HONEY BEE) INSECT VENOM penicillins What to Do Next You Need to Schedule the Following Appointments Follow Up with??Natan Sandoval MD When:??Within 1 month [address]: [facility] [address] [address]- Upcoming Scheduled Appointments Friday 10:00 AM EDT [...] How Much When Why Instructions Next Dose New nystatin topical (nystatin 100,000 units/ g topical powder) 1 Application Topical (on the skin) 2 times a day Lesion of penis Pickup at [facility] Unchanged anfpp-Z-atvicvvaihbph (Gas-X Prevention 600 units oral capsule) 1 Capsules Oral (given by [...] (given by mouth) 2 times a day GERD without esophagitis Dose increase ?? Unchanged QUEtiapine (SEROquel 100 mg oral tablet) 1 tab Oral (given by mouth) Every evening Unchanged semaglutide (Rybelsus 14 mg oral tablet) 1 tab Oral (given by mouth) Every day Hyperglycemia Severe obesity take at least 30 minutes before first food, beverage, or other oral meds ?? Pharmacy Information [facility]: [address] [place], [place] [id number] [phone] Education [employer] Skin Yeast Infection A skin yeast infection is a condition in which there is an overgrowth of yeast (Lisset) that normally lives on the skin. This condition usually occurs in areas of the skin that are constantly warm and moist, such as the skin under the breasts or armpits, or in the groin and other body folds. What are the causes? This condition is caused by a change in the normal balance of the yeast that live on the skin. What increases the risk? You are more likely to develop this condition if you: ? Are obese. ? Are . ? Are 65 years of age or older. ? Wear tight clothing. ? Have any of the following conditions: ? Diabetes. ? Malnutrition. ? A weak body defense system (immune system). ? Take medicines such as: ? control pills. ? Antibiotics. ? Steroid medicines. What are the signs or symptoms? The most common symptom of this condition is itchiness in the affected area. Other symptoms include: ? A red, swollen area of the skin. ? Bumps on the skin. How is this diagnosed? This condition is diagnosed with a medical history and physical exam. Your health care provider maycheck for yeast by taking scrapings of the skin to be viewed under a microscope. How is this treated? This condition is treated with medicine. Medicines may be prescribed or available over the counter.The medicines may be: ? Taken by mouth (orally). ? Applied as a cream or powder to your skin. Follow these instructions at home: ? Take or apply pbqc-aeb-qcqhrku and prescription medicines only as told by your health care provider. ? Maintain a healthy weight. If you need help losing weight, talk with your health care provider. ? Keep your skin clean and dry. ? Wear loose-fitting clothing. ? If you have diabetes, keep your blood sugar under control. ? Keep all follow-up visits. This is important. Contact a health care provider if: ? Your symptoms go away and then come back. ? Your symptoms do not get better with treatment. ? Your symptoms get worse. ? Your rash spreads. ? You have a fever or chills. ? You have new symptoms. ? You have new warmth or redness of your skin. ? Your rash is painful or bleeding. Summary ? A skin yeast infection is a condition in which there is an overgrowth of yeast (Lisset) that normally lives on the skin. ? Take or apply usuv-tyj-pgspovj and prescription medicines only as told by your health care provider. ? Keep your skin clean and dry. ? Contact a health care provider if your symptoms do not get better with treatment. This information is not intended to replace advice given to you by your health care provider. Make sure you discuss any questions you have with your health care provider. Document Revised: 07/17/2021 Document Reviewed: 07/17/2021 [employer] Patient Education ?? 2022 [employer] Patient/Forest Resources Professor Signature Patient Name:DANIELITO WOODY I have received this information and my questions have been answered. Patient/Forest Resources Professor Name: Patient/[employer] Professor Signature: Relationship to Patient: Witness Name/Signature: Date: Electronically Signed on: 12/03/2022 07:03 EDTSigned by:TRM Discharge summary * Courtney Landrum: PERFORM Event Display: Discharge Note Authored Date: [id number] * Courtney Landrum: PERFORM Event Display: Discharge Note Authored Date: [id number] Diagnosis: 1. Lesion of penis Comment: Diagnosis: Testicular pain Comment: Electronically Signed on 12/03/22 07:07 AM Courtney Landrum Patient Care team information Care Team Personnel Name: Natan Sandoval MD Position: Physician Member Role: Informed Provider Address: Address: [address] Name: Rasheeda Espinosa Position: Nurse Member Role: ED Nurse Name: Lino Bernardo MD Position: Physician Member Role: Attending Physician Address: Address: [facility] [address] [place] [id number] Care Team Related Persons Name: JOSE WEBB
--- OUTSIDE RECORDS SUMMARY | 2023-05-20 20:39 | XMS_ITS | Continuity of Care Document ---
Author Name Unknown Organization [facility] Address [address] [place] [address] Care Team Providers Care Clothing Busheler Name Role Phone Natan Sandoval Primary Care Physician [phone] Encounter [facility] Date(s): 09/24/22 - 09/24/22 [facility] [address] [place] [address] Discharge Disposition: Home or Self Care Attending Physician: Natan Sandoval MD Admitting Physician: Natan Sandoval MD Referring Physician: Natan Sandoval MD Allergies, Adverse Reactions, Alerts Substance Reaction Severity Status BEE VENOM PROTEIN (HONEY BEE) Unknown Active INSECT VENOM Unknown Active penicillins Unknown Active Assessment and Plan Future Appointments Future Scheduled Tests Laboratory* Semen Analysis Post Vasectomy 06/25/22 Immunizations Given and Recorded Vaccine Date Status [...] Once, # 1 EA, 0 Refill(s), Pharmacy: [facility], 175.28, cm, 11/17/21 8:57:00 EDT, Height/Length [...] Dosing Start Date: 09/24/22 Status: Ordered pantoprazole 20 mg oral delayed release tablet 1 tab, Oral, Daily, # 90 tab, 3 Refill(s), Pharmacy: [facility], 178, cm, 01/15/22 8:47:00 EDT, Height/Length Dosing, 160, kg, 01/15/22 8:47:00 EDT, Weight Dosing Start Date: 09/24/22 Status: Ordered Rybelsus 14 mg oral tablet 14 mg = 1 tab, Oral, Daily, take at least 30 minutes before first food, beverage, or other oral meds, # 90 tab, 3 Refill(s), Pharmacy: [facility], 178, cm, 01/15/22 8:47:00 EDT, Height/Length Dosing, 160, kg, 01/15/22 8:47:00 EDT, Weight... 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 Chronic gingivitis Confirmed 12/01/20 Active Developmental delay Confirmed 12/01/20 Active Dysphagia [...] distal radius Results Laboratory List Name Date Basic Metabolic Panel (BMP) 09/24/22 Hemoglobin A1c 09/24/22 Hepatitis C Ab w/Rflx to HCV RNA PCR [facility] 09/24/22 Microalbumin/Creatinine Ratio Urine 09/24 Most recent to oldest [Reference Range]: 1 BUN [7-18 mg/dL] 20 mg/dL *HI* (09/24/22 12:38 PM) Glucose Level [74-106 mg/dL] 250 mg/dL *HI* (09/24/22 12:38 PM) Potassium Level [3.5-5.1 mmol/L] 4.1 mmo l/L (09/24/22 12:38 PM) Sodium Level [136-145 mmol/L] 137 mmol/L (09/24/22 12:38 PM) Calcium Level [8.5-10.1 mg/dL] 8.9 mg/dL (09/24/22 12:38 PM) CO2 [21-32 mmol/L] 29 mmol/L (09/24/22 12:38 PM) eGFR Non-AA [>=60] 116 (09/24/22 12:38 PM) eGFR AA [>=60] 116 (09/24/22 12:38 PM) U Creatinine 144 mg/dL *NA* (09/24/22 12:38 PM) Hemoglobin A1c [4.0-6.0 %] 7.0 % *HI* (09/24/22 12:38 PM) Chloride Level [98-107 mmol/L] 101 mmol/ L (09/24/22 12:38 PM) U Microalb/Creat [0.0-30.0 mcg/mg] 4.9 m cg/mg (09/24/22 12:38 PM) U Microalb [0.0-20.0] 7.1 (09/24/22 12:38 PM) Creatinine Level [0.70-1.30 mg/dL] 0.83 mg/dL (09/24/22 12:38 PM) Hep C Antibody [facility] [Negative] Negative 1 *NA* (09/24/22 12:38 PM) 1Result Comment: Test performed or referred by The [address] [address] Social History Social History Type Response Tobacco Former tobacco user Tobacco Use:. Sex Male Patient Care team information Care Team Personnel Name: Natan Sandoval MD Position: Physician Member Role: Primary Care Physician Address: Address: [address] [address]- Care Team Related Persons Name: TRACEY JOSE Address: Home
--- OUTSIDE RECORDS SUMMARY | 2023-05-20 20:39 | XMS_ITS | Continuity of Care Document ---
Author Name Unknown Organization [facility] Address [address] [place] [address] Care Team Providers Care Preschool Assistant Director Name Role Phone Outside, Provider Primary Care Physician [facility] 04[facility]04[facility]23 - 04/04/23 [facility] [address] [place] [address] Discharge Disposition: Home or Self Care Attending [...] Once, # 1 EA, 0 Refill(s), Pharmacy: [address], 175.28, cm, 11/17/21 8:57:00 EDT, Height/Length Dosing, 168.28, kg, 11/17/21 8:57:00 EDT, Weight Dosing Start Date: 12/24/21 Status: Ordered escitalopram 20 mg oral tablet 20 mg = 1 tab, Oral, Daily, # 90 tab, 3 Refill(s), Pharmacy: [facility], 176, cm, 12/28/22 11:06:00 EDT, Height/Length Dosing, 152, kg, 12/28/22 11:06:00 EDT, Weight Dosing Start Date: 03/03/23 Status: Ordered Gas-X Prevention 600 units oral capsule 600 units 1 cap, Oral, BID, PRN as needed for gas, # 60 cap, 1 Refill(s), Pharmacy: [facility], 178, cm, 01/15/22 8:47:00 EDT, Height/Length Dosing, 160, kg, 01/15/22 8:47:00 EDT, Weight Dosing Start Date: 09/24/22 Status: Ordered Lexapro 10 mg oral tablet 10 mg = 1 tab, Oral, Daily, # 90 tab, 3 Refill(s), Pharmacy: [facility], 178, cm, 01/15/22 8:47:00 EDT, Height/Length Dosing, 160, kg, 01/15/22 8:47:00 EDT, Weight Dosing Start Date: 09/24/22 Status: Ordered multivitamin adult, oral tablet 1 tab, Oral, Daily, # 90 tab, 3 Refill(s), Pharmacy: [facility], 176, cm, 12/28/22 11:06:00 EDT, Height/Length Dosing, 152, kg, 12/28/22 11:06:00 EDT, Weight Dosing Start Date: 02/20/23 Status: Ordered pantoprazole 40 mg oral delayed release tablet 1 tab, Oral, BID, # 56 tab, 0 Refill(s), Pharmacy: [facility] [id number], 176, cm, 12/28/22 11:06:00 EDT, Height/Length Dosing, 152, kg, 12/28/22 11:06:00 EDT, Weight Dosing Start Date: 02/18/23 Status: Ordered polyethylene glycol 3350 oral powder for reconstitution 17 g, Oral, Daily, DISSOLVE IN WATER OR JUICE., # 510 g, 2 Refill(s), Pharmacy: [facility] [facility] [id number], 176, cm, 12/28/22 11:06:00 EDT, Height/Length Dosing, 152, kg, 12/28/22 11:06:00 EDT, Weight Dosing Start Date: 02/18/23 Status: Ordered Rybelsus 14 mg oral tablet 14 mg = 1 tab, Oral, Daily, take at least 30 minutes before first food, beverage, or other oral meds, # 90 tab, 3 Refill(s), Pharmacy: [facility], 178, cm, 01/15/22 8:47:00 EDT, Height/Length Dosing, 160, kg, 01/15/22 8:47:00 EDT, Weight Dosing Start Date: 09/24/22 Status: Ordered SEROquel 100 mg oral tablet 100 mg = 1 tab, Oral, BID, # 60 tab, 3 Refill(s), Pharmacy: [facility], 176, cm, 12/28/22 11:06:00 EDT, Height/Length Dosing, 152, kg, 12/28/22 11:06:00 EDT, Weight Dosing Start Date: 02/11/23 Status: Ordered Problem List Condition Confirmation Course Effective Dates Status H ealth Status Informant Allergic reaction to bee sting Confirmed Active Anxiety Confirmed Active Attention deficit hyperactivity disorder, predominantly inattentive type Confirmed 12/01/20 Active Chronic gingivitis Confirmed 12/01/20 Active Constipation Confirmed Active Depressive disorder Confirmed 08/06/22 Active Developmental delay Confirmed 12/01/20 Active Dysphagia Confirmed 12/01/20 Active Gastroesophageal reflux disease Confirmed 12/01/20 Active H/O: alcoholism Confirmed 12/01/20 Active Hiatal hernia Confirmed Active History of drug abuse Confirmed 12/01/20 Active Intermittent explosive disorder Confirmed 12/01/20 Active Laryngitis Confirmed Active Low self-esteem Confirmed 12/01/20 Active Major depressive disorder Confirmed 12/01/20 Active Morbid obesity Confirmed Active Obesity Confirmed Active Obstructive sleep apnea syndrome Confirmed Active Oral lesion Confirmed Active Polysubstance abuse Confirmed Active Severe obesity Confirmed Active Left ankle sprain Confirmed Active Dermatophytosis of the trunk Confirmed Active Umbilical hernia Confirmed Active Ureterolithiasis Confirmed Active Vitamin D deficiency Confirmed 12/01/20 Active Procedures Procedure Date Related Diagnosis Body Site Status Endoscopy 03/23/23 Completed Cystoureteroscopy 02/20/22 Complet ed Hernia repair 02/21/21 Completed EGD - Esophagogastroduodenoscopy 1 01/11/21 Completed Barium swallow 09/07/20 Completed MRI of brain 09/26/02 Completed Eye surgery 2 05/11/96 Completed Wrist surgery 3 Completed 1Gerd, esophagitis, gastritis, small hiatal hernia 2repair of left orbit after trauma 3ORIF Left distal radius Results Laboratory List Name Date Hemoglobin A1c 04/04/23 Most recent to oldest [Reference Range]: 1 Hemoglobin A1c [4.0-6.0 %] 6.3 % *HI* (04/04/23 3:57 PM) Social History Social History Type Response Tobacco Former tobacco user Tobacco Use:. Sex Male Patient Care team information Care Team Personnel Name: Natan Sandoval MD Position: Physician Member Role: Informed Provider Address: Address: [address] Name: Outside, Provider Position: No Access Member Role: Primary Care Physician Care Team Related Persons Name: JOSE WEBB
--- OUTSIDE RECORDS SUMMARY | 2023-05-20 20:39 | XMS_ITS | Continuity of Care Document ---
Author Name Unknown Organization [facility] Address [address] [place] [address] Care Team Providers Care Cell Biology Scientist Name Role Phone Outside, Provider Primary Care Physician Encounter [facility] Date(s): 03/26/23 - 03/26/23 [facility] [address] [place] [address] Encounter Diagnosis Obstructive sleep apnea syndrome(Discharge Diagnosis) - 03/26/23 Discharge Disposition: Home or Self Care Attending Physician: Kami Jimenez MD Allergies, Adverse Reactions, Alerts Substance Reaction [...] Once, # 1 EA, 0 Refill(s), Pharmacy: [facility], 175.28, cm, 11/17/21 8:57:00 EDT, Height/Length Dosing, 168.28, kg, 11/17/21 8:57:00 EDT, Weight Dosing Start Date: 12/24/21 Status: Ordered escitalopram 20 mg oral tablet 20 mg = 1 tab, Oral, Daily, # 90 tab, 3 Refill(s), Pharmacy: [facility], 176, cm, 12/28/22 11:06:00 EDT, Height/Length Dosing, 152, kg, 12/28/22 11:06:00 EDT, Weight Dosing Start Date: 03/03/23 Status: Ordered Gas-X Prevention 600 units oral capsule 600 units 1 cap, Oral, BID, PRN as needed for gas, # 60 cap, 1 Refill(s), Pharmacy: [facility], 178, cm, 01/15/22 8:47:00 EDT, Height/Length Dosing, 160, kg, 01/15/22 8:47:00 EDT, Weight Dosing Start Date: 09/24/22 Status: Ordered Lexapro 10 mg oral tablet 10 mg = 1 tab, Oral, Daily, # 90 tab, 3 Refill(s), Pharmacy: [facility], 178, cm, 01/15/22 8:47:00 EDT, Height/Length Dosing, 160, kg, 01/15/22 8:47:00 EDT, Weight Dosing Start Date: 09/24/22 Status: Ordered multivitamin adult, oral tablet 1 tab, Oral, Daily, # 90 tab, 3 Refill(s), Pharmacy: [facility], 176, cm, 12/28/22 11:06:00 EDT, Height/Length Dosing, 152, kg, 12/28/22 11:06:00 EDT, Weight Dosing Start Date: 02/20/23 Status: Ordered pantoprazole 40 mg oral delayed release tablet 1 tab, Oral, BID, # 56 tab, 0 Refill(s), Pharmacy: [facility] [address], 176, cm, 12/28/22 11:06:00 EDT, Height/Length Dosing, 152, kg, 12/28/22 11:06:00 EDT, Weight Dosing Start Date: 02/18/23 Status: Ordered polyethylene glycol 3350 oral powder for reconstitution 17 g, Oral, Daily, DISSOLVE IN WATER OR JUICE., # 510 g, 2 Refill(s), Pharmacy: [facility] [address], 176, cm, 12/28/22 11:06:00 EDT, Height/Length Dosing, 152, kg, 12/28/22 11:06:00 EDT, Weight Dosing Start Date: 02/18/23 Status: Ordered Rybelsus 14 mg oral tablet 14 mg = 1 tab, Oral, Daily, take at least 30 minutes before first food, beverage, or other oral meds, # 90 tab, 3 Refill(s), Pharmacy: [facility], 178, cm, 01/15/22 8:47:00 EDT, Height/Length Dosing, 160, kg, 01/15/22 8:47:00 EDT, Weight Dosing Start Date: 09/24/22 Status: Ordered SEROquel 100 mg oral tablet 100 mg = 1 tab, Oral, BID, # 60 tab, 3 Refill(s), Pharmacy: [facility], 176, cm, 12/28/22 11:06:00 EDT, Height/Length Dosing, [...] Most recent to oldest [Reference Range]: 1 Peripheral Pulse Rate [60-100 bpm] 67 bp m (03/26/23 12:44 PM) Blood Pressure [90-140/60-90 mmHg] 121/6 3mmHg (03/26/23 12:44 PM) Mean Arterial Pressure, Cuff [70-110 mmH g] 82 mmHg (03/26/23 12:44 PM) Weight 145.15 kg (03/26/23 12:44 PM) Weight Measured (lbs) 320.001 lb (03/26/23 12:44 PM) Weight Dosing 145.150 kg (03/26/23 12:44 PM) Height 176 cm (03/26/23 12:44 PM) Height/Length Measured (inches) 69.29 in ch (03/26/23 12:44 PM) Body Mass Index 46.86 kg/m2 (03/26/23 12:44 PM) Social History Social History Type Response Tobacco Former tobacco user Tobacco Use:. Sex Male Progress note * Petey Garcia: PERFORM Event Display: Progress Note - Physician Authored Date: [id number] Physician Outpatient Note * Kami Jimenez MD: PERFORM, MODIFY Event Display: Office Clinic Note Physician Authored Date: [id number] DANIELITO WODOY :1985 Age:37 years Sex:Male Visit Date:03/26/2023 Primary Care Physician: Outside, Provider Chief Complaint cpap compliance History of Present Illness Pt would like his tonsils/throat looked at today. He looked in the mirror and was curious about thefolds in his throat. He is having a sore throat today. ?? He is getting supplies regularly from [employer]. ?? He has been walking for exercise and trying to control his portion sizes, watch what he eats. Heis recovering from his hernia repair surgery and will be cleared to walk again in 3 weeks. Review of Systems A 10-point REVIEW OF SYSTEM was obtained and reviewed, includes CONSTITUTIONAL, EYES, NOSE, THROAT,RESPIRATORY, HEART, GASTROINTESTINAL, UROLOGIC, MUSCULOSKELETAL, PSYCHIATRY, SKIN systems. Pertinent symptoms are discussed in history, otherwise negative. Physical Exam Vitals & Measurements HR:??67??(Peripheral)?? BP:??121/63?? SpO2:??96%?? HT:??176??cm?? WT:??145.15??kg?? BMI:??46.86?? General:??well appearing, appearing stated age, no acute distress,??obese??build HEENT: atraumatic skull, anicteric RESPIRATORY: quiet respiration, able to speak in full sentences without dyspnea, no accessory muscle use SKIN: no facial skin rash, no facial skin lesions PSYCHIATRIC: well groomed, fluent speech, good insight, linear thought process, good eye contact,balanced??affect NEUROLOGIC: alert, oriented, symmetric facial expression Clinic Assessment/Plan 1.??Obstructive sleep apnea syndrome??G47.33 Actions: FUTURE - Follow-Up Appointment Request NCTY, *Est. 03/26/24 +/- 28 days, Future Order, 1 yr cpap compliance, In [facility] ?? I provided greater than??30??minutes in the care of this patient including chart review and documentation, more than half the time was spent in [id number] counseling. ?? 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 ?? Comorbidities??include: ?Obstructive Sleep Apnea, ??Anxiety, ADHD, Umbilical hernia, developmental delay. ? Clinical Data Reviewed:? Wilder Sleepiness Scale:?(03/26/2023) Wilder Sleepiness Scale:?? 02/02??(11/05/2022) ESS - Wilder Sleepiness Scale Total: 8 (07/23/22) ESS - Wilder Sleepiness Scale Total: 6 (06/11/22) ESS - Wilder Sleepiness Scale Total: 15 (02/26/22) ?? Machine Download Data:??Resmed AirSense 10 Auto BIPAP?? PAP Settings: ??Auto BIPAP?IMAX 25 ANA 15 PS 7??CmH2O Date Range: ?02/23/23 - 03/24/23 Days with Usage >=4 hours: ??43% Avg Usage per Day Used: ??4hr 17min Mean/Median Pressure: ?22.0/15.1 90th-tile/95th-tile Pressure: ?22.8/15.8 Median-90th%tile Leak?42.6/67.8 Avg Treatment ??AHI: ??4.2/hr ?? Sleep Clinical Timeline:? He was seen in sleep clinic for sleep consultation by Dr Lim??at the kind request of Ruthy Cota M.D. on 05/23/14 for ESS of 21 and witnessed apneas. PSG was ordered at [facility]. ?? Diagnostic PSG on ??06/20/14, wt 290, BMI 42: Patient had extremely severe ARON associated with hypoxemia with overall AHI 97/hr, overall RDI 100/hr, supine AHI 129/hr, left lateral AHI 46/hr, right lateral AHI 91/hr. 120 minutes with oxygen less than 88 percent, mean oxygen was 87 percent on room air, arousal index 12/hr, PLM index 0.2/hr, normal sinus rhythm with occasional PVCs. ?? 07/31/[address] Lim??and was agreeable to start auto cpap 8 to 18cm via 5o9. ?? 09/12/14 Titration Sleep??Study (wt 287lbs, BMI 41.5) CPAP 5 to 16 tested BIPAP 17/ to tested Best pressures: CPAP 15 or Bipap 18/14 or 19/14cm worked well for respiratory events including in supine REM sleep. ??PLM index of 0.5/hr. Improvement of pts oxygen at mean oxygen at 91 percent and David spo2 at 82 percent. 7 minutes of spo2 oxygen less than 88 percent. Remarkable improvements. ?? Recommended that patient can be on auto cpap 13 to 18cm or bipap imax 19 Ana 9 PS 4cm. ?? 11/13/2014: [facility] Follow up, ??Showed poor compliance on CPAP, only usage at 30 percent. Treatment AHI is excellent at 1.6 hr. Pt to work on increasing compliance. ?? 01/09/2015: [facility] Follow up, patient improved compliance to 77 percent. Reports reduction of daytime sleepiness. AHI 1.2/hr. At that the time he was on autocpap 8 to 18cm. ?? 04/22/2020: Transitioned to [facility] [employer]??at [facility]??Sleep Clinic. Phone visit, pt was off cpap because of device being broken. New device ordered. Unclear of setting. ?? 06/2020: visit with Geovanna at [facility], titration study suggested. Unclear if this was ever done, do not have report ?? 02/04/2020: Visit with [facility], sleep study recommended-unclear as to why. No records available. ?? 02/26/22: Transferred to my care today, [facility] sleep consultation due to recent complications withpost op 'apnea' and pt reports what bothers him most is the excessive daytime sleepiness. Currentlyon apap 6 to 16cm with complicance rate of??only??20% in last 90 days, high residual avg AHI 20/hr suspected due to poor mask seal/mouth leak on nasal mask. Strongly advised pt to return to nightly cp ap??usage, tighten mask in meantime, sleep??7 to 9 hours nightly,??and re- evaluation via repeat [facility]??Titration PSG as he gained 75 lbs since his previous one. In meantime, increased to??apap 9 to 16cm to see if his??ARON can be??better treated??while still??maintaining tolerance (he is adverse to??pressures being too high). ?? 02/28/2022. CPAP Titration Study. Wt.: 366.61 lbs. ??BMI = 52.6 kg/m2.?? 1.??CPAP and BIPAP titration for Severe Obstructive Sleep Apnea associated with significant nocturnal hypoxemia. 2.??Optimal pressure at 20/15 cm H2O and above which resolved significant apneas, hypopneas, snoring and desaturations including during supine REM sleep.?? 3.??There were still some oxygen desaturations without airflow limitation on 20/15cm, but BIPAP 22/15kjA3U appeared to keep SpO2 in 89 to 91% range during supine NREM sleep.??Adequate oxygenation was??mostly??maintained on optimal pressures. 4.??CPAP was tried and failed. Interface problems did not contribute to CPAPs inability to control the patient's sleep apnea. 5.??Resmed AirTouch F20, Full Face Mask in Size Medium, showed acceptable leak profile. Patient wasfitted with new mask at beginning of study.?? 6.??This titration study was positive for Nocturnal Hypoventilation with over 40% of total sleep time spent at TcCO2 > 50mmHg. Awake TcCO2 was in 39 to 41mmHg range, and on final pressure of 22/15cm (pressure support 7cm), asleep TcCO2 at 49 to 50mmHg range. RECOMMENDATIONS: The patient should be changed to bi-level therapy with mask of choice, heated humidification and ramp at a pressure BIPAP 22/15 cm H2O. Alternatively and preferably auto BIPAP Imax 25 cm H2O, Ana 15 cm H2O and PS ??7 cm H2O can be used. ?? 03/06/22: [facility] request for bipap machine at auto bipap imax 25 ana 15 ps 7cm sent to P. ?? 06/11/2022: Cont current BiPAP pressures.??Pt note benefit in feeling alert,??more energized at work and sleeping well with BiPAP. However it does not appear he met compliance so instructed him to work aggressively on that. He also had mask issue and extensive mask education was given today, pt only had phone set up with DME and did not appear to know how to put on mask properly. ?? 07/23/2022: Pt has now met usage requirement. tx AH 12.2/hr?? but daily details show AHI < 5/hr until couple weeks ago with large increase in mask??leak,??most likely due to the fact his mask cushion has broken.??Cont current BiPAP pressures with AirTouch or AirFit??F20 Medium, order sent to [facility]. Pt having rain out issue with his machine, so extensive machine education, mask hygiene,??andmaintenance discussion was had today. Pt given links to??[employer] videos to assist him at home with machine use and care instructions. Reports he feels more energized with BiPAP. ? 11/05/2022: Patient given new headgear in office today d/t age, noted??poor condition of the one hehas been using, not usable due to velcro not sticking. He has begun walking for exercise 30-45minutes a day to lose weight in order to qualify for hernia repair surgery. ?? 03/26/2023: Getting supplies now. Encouraged him to increase compliance with his CPAP, he will continue his walking for 30 minutes a day and add 5 minutes a week once he is cleared to walk again in 3weeks. He is more alert and awake during the day with his CPAP vs when he doesn't use it. ?? Current??Mask:??Airfit F20 Medium [facility] DME: [facility] ? Today's Assessment and Plan: see 03/26/23 entry above Decreased CPAP usage lately d/t recent pharyngitis.??he was able to lose about 20 lbs through walking and portion control, ended up having his hernia repair surgery recently. Download data reviewed and discussed with the patient. He has moderate compliance with tx AHI of 4.2/hr which is very well treated compared to his untreated AHI of 100/hr. He has a very significant air leak on his download data but does have a new CPAP mask with him today. Discussed replacing his PAP supplies regularly and cleaning his machine. He has been able to get refills from [facility] and replace his mask cushion. Examined pt's throat at his request as he has a sore throat.??I did not see anything abnormal on brief examination. He had EGD via gen surg, asked him to wait for those results if he is underoging eval for that. ?? Follow up: 4 month follow up, SARAH to Saima Zheng NP??or sooner if needed. ?? Remote Scribed by??Jose Luis Moore ?? Problem List/Past Medical History Ongoing Allergic reaction to bee sting Anxiety Attention deficit hyperactivity disorder, predominantly inattentive type Chronic gingivitis Constipation Depressive disorder Dermatophytosis of the trunk Developmental delay Dysphagia Gastroesophageal reflux disease H/O: alcoholism Hiatal hernia History of drug abuse Intermittent explosive disorder Laryngitis Left ankle sprain Low self-esteem Major depressive disorder Morbid obesity Obesity Obstructive sleep apnea syndrome Oral lesion Polysubstance abuse Severe obesity Umbilical hernia Ureterolithiasis Vitamin D deficiency Historical No qualifying data Procedure/Surgical History ???Cystoureteroscopy (02/21/2022)???Hernia repair (02/22/2021)???EGD - Esophagogastroduodenoscopy (01/12/2021)???Barium swallow (09/08/2020)???MRI of brain (09/27/2002)???Eye surgery (05/12/1996)???Wrist surgery Medications What How Much When Why Instructions Unchanged [id number]-B-ptomcdsztbjec (Gas-X Prevention 600 units oral capsule) 1 Capsules Oral (given by mouth) 2 times a day as needed for as needed for gas Gastroesophageal reflux disease Unchanged EPINEPHrine (EpiPen 2-Rex 0.3 mg injectable kit) 0.3 Milligrams Intramuscular (in a muscle) Once Unchanged escitalopram (escitalopram 20 mg oral tablet) 1 tab Oral (given by mouth) Every day Anxiety disorder Unchanged escitalopram (Lexapro 10 mg oral tablet) 1 tab Oral (given by mouth) Every day Unchanged multivitamin (multivitamin adult, oral tablet) 1 tab Oral (given by mouth) Every day Major depressive disorder Morbid obesity Unchanged pantoprazole (pantoprazole 40 mg oral delayed release tablet) 1 tab Oral (given by mouth) 2 times a day Unchanged polyethylene glycol 3350 (polyethylene glycol 3350 oral powder for reconstitution) 17 Gram Oral (given by mouth) Every day DISSOLVE IN WATER OR JUICE. ?? Unchanged QUEtiapine (SEROquel 100 mg oral tablet) 1 tab Oral (given by mouth) 2 times a day Unchanged semaglutide (Rybelsus 14 mg oral tablet) 1 tab Oral (given by mouth) Every day Hyperglycemia Severe obesity take at least 30 minutes before first food, beverage, or other oral meds ?? Allergies BEE VENOM PROTEIN (HONEY BEE) INSECT VENOM penicillins Social History Alcohol Current, 1-2 times per week Electronic Cigarette/Vaping Electronic Cigarette Use: Former use, quit more than 90 days ago. Employment/School Employed Home/Environment Lives with Alone. Living situation: Home/Independent. Substance Use Past, Marijuana Tobacco Former tobacco user Tobacco Use:. Family History Healthy adult: Mother and Father. Immunizations Vaccine Date Status tetanus/diphth/pertuss (Tdap) adult/adol 04/30/2022 Given influenza virus vaccine, inactivated 04/30/2022 Given SARS-CoV-2 mRNA (tozinameran 12y+) bival 04/30/2022 Given influenza virus vaccine, live 03/01/2021 Recorded Comments : cleanse area well SARS-CoV-2 (COVID-19) mRNA-1273 vaccine 09/05/2020 Recorded SARS-CoV-2 (COVID-19) mRNA-1273 vaccine 08/08/2020 Recorded influenza virus vaccine, live 05/11/2020 Recorded tetanus/diphth/pertuss (Tdap) adult/adol 08/21/2011 Recorded hepatitis B adult vaccine 05/10/2005 Recorded hepatitis B pediatric vaccine 05/09/2005 Recorded hepatitis B adult vaccine 10/29/2004 Recorded hepatitis B pediatric vaccine 10/16/2004 Recorded hepatitis B adult vaccine 09/18/2004 Recorded tetanus-diphth toxoids (Td) adult/adol 02/11/2004 Recorded hepatitis B pediatric vaccine 02/08/1999 Recorded hepatitis B pediatric vaccine 09/02/1997 Recorded Electronically Signed on 03/26/23 02:57 PM Kami Jimenez MD Reviewed by: Kami Jimenez MD Patient Care team information Care Team Personnel Name: Ntaan Sandoval MD Position: Physician Member Role: Informed Provider Address: Address: [address] [address]- [place] Name: Outside, Provider Position: No Access Member Role: Primary Care Physician Care Team Related Persons Name: JOSE WEBB
--- OUTSIDE RECORDS SUMMARY | 2023-05-20 20:39 | XMS_ITS | Continuity of Care Document ---
Author Name Unknown Organization [facility] Address [address] [place] [address] Care Team Providers Care Assembler Fishing Floats Name Role Phone Mirtha Ny Primary Care Physician [facility] Date[facility]): 05/10/23 - 05/10/23 [facility] [address] [place] [address] Discharge Disposition: Home or Self Care Attending Physician: Carlos Eduardo Milian MD Admitting Physician: Carlos Eduardo Milian MD Allergies, Adverse Reactions, Alerts Substance Reaction [...] Once, # 1 EA, 0 Refill(s), Pharmacy: [facility], 175.28, cm, 11/17/21 8:57:00 EDT, Height/Length Dosing, 168.28, kg, 11/17/21 8:57:00 EDT, Weight Dosing Start Date: 12/24/21 Status: Ordered escitalopram 20 mg oral tablet 20 mg = 1 tab, Oral, Daily, # 90 tab, 3 Refill(s), Pharmacy: [facility], 176, cm, 12/28/22 11:06:00 EDT, Height/Length Dosing, 152, kg, 12/28/22 11:06:00 EDT, Weight Dosing Start Date: 03/03/23 Status: Ordered Gas-X Prevention 600 units oral capsule 600 units 1 cap, Oral, BID, PRN as needed for gas, # 60 cap, 1 Refill(s), Pharmacy: [facility], 178, cm, 01/15/22 8:47:00 EDT, Height/Length Dosing, 160, kg, 01/15/22 8:47:00 EDT, Weight Dosing Start Date: 09/24/22 Status: Ordered Lexapro 10 mg oral tablet 10 mg = 1 tab, Oral, Daily, # 90 tab, 3 Refill(s), Pharmacy: [facility], 178, cm, 01/15/22 8:47:00 EDT, Height/Length Dosing, 160, kg, 01/15/22 8:47:00 EDT, Weight Dosing Start Date: 09/24/22 Status: Ordered multivitamin adult, oral tablet 1 tab, Oral, Daily, # 90 tab, 3 Refill(s), Pharmacy: [facility], 176, cm, 12/28/22 11:06:00 EDT, Height/Length Dosing, 152, kg, 12/28/22 11:06:00 EDT, Weight Dosing Start Date: 02/20/23 Status: Ordered pantoprazole 40 mg oral delayed release tablet 1 tab, Oral, BID, # 56 tab, 1 Refill(s), Pharmacy: [facility] [address], 176, cm, 03/26/23 12:44:00 EST, Height, 145.15, kg, 04/04/23 15:35:00 EST, Weight Dosing Start Date: 04/11/23 Status: Ordered polyethylene glycol 3350 oral powder for reconstitution 17 g, Oral, Daily, DISSOLVE IN WATER OR JUICE., # 510 g, 2 Refill(s), Pharmacy: [facility] [address], 176, cm, 12/28/22 11:06:00 EDT, Height/Length Dosing, [...] BID, # 60 tab, 3 Refill(s), Pharmacy: [facility], 176, cm, 12/28/22 11:06:00 EDT, Height/Length Dosing, [...] [36-38 Deg C ] 36.0 Deg C (05/10/23 7:25 PM) Heart Rate Monitored [60-100 bpm] 72 bpm (05/10/23 7:25 PM) Respiratory Rate [12-24 br/min] 20 br/mi n (05/10/23 7:25 PM) Blood Pressure [90-140/60-90 mmHg] 133/8 7mmHg (05/10/23 7:25 PM) Mean Arterial Pressure, Cuff [70-110 mmH g] 102 mmHg (05/10/23 7:25 PM) Weight 147 kg (05/10/23 7:25 PM) Weight Dosing 147.000 kg (05/10/23 7:25 PM) Height 177.8 cm (05/10/23 7:25 PM) Body Mass Index 46.5 kg/m2 (05/10/23 7:25 PM) Social History Social History Type Response Tobacco Former tobacco user Tobacco Use:. Sex Male Physician Emergency department Note * Carlos Eduardo Milian MD: PERFORM Event Display: ED Note Physician Authored Date: DANIELITO WOODY:1985 Age:38 years Sex:Male Visit Date:05/10/2023 Primary Care Physician: Mirtha Ny PHOTO EQUIPMENT TECHNICIAN HPI 38-year-old obese male with a history of depressive disorder, developmental delay, EtOH abuse, polysubstance abuse, and a chronic sensation of bilateral upper neck swelling presents for repeat evaluation of the same symptoms due to concerns that his tonsils looked infected when he visualized them with his cell phone earlier today. Patient denies sore throat, cough, nasal congestion, fevers, chills, and notes that he has had multiple prior evaluations of his neck swelling symptoms by his PCP andENT and his symptoms were found to be without explaining etiology and he has been child on nasal steroids in an attempt to reduce the severity of his symptoms. Patient has no difficulty or changes with swallowing, phonation, and has no neck stiffness. ROS with no recent constitutional symptoms. ?? Exam HR 72, RR 20, BP 133/87, T 36.0??C, SaO2 97% on room air. Gen: Pleasant, non-toxic appearing, resting comfortably HEENT: NC, AT, PEERL, EOMI. Anterior and posterior oropharynx visually normal, neck supple, full range of motion, patient able to comfortably swallow, normal phonation, no stridor or sterter, no palpable lymphadenopathy. Resp: Clear to auscultation bilaterally. Unlabored respirations with a normal work of breathing. Card: Regular rate and rhythm. Extremities warm and well perfused.?? GI: Non-distended. : Deferred MSK: No visible deformities, strength and tone without visually appreciable deficit. Neuro: alert and oriented?3, no facial asymmetry, vision and hearing WNL. Heme/Lymph: Deferred Skin: Normal color with no visible lesions (other than noted above). Psych:, however unusual mood and affect. ?? MDM Previous chart, nursing note, and vitals reviewed.?? A: 38-year-old obese male with a history of depressive disorder, developmental delay, EtOH abuse, polysubstance abuse, and a chronic sensation of bilateral upper neck swelling presents for repeat evaluation of the same symptoms due to concerns that his tonsils looked infected when he visualized them with his cell phone earlier today. ?? DDx & Evaluation: patient has unremarkable physical exam without discernible HEENT pathology. Patient provided with reassurance instructed to follow up with his PCP as needed. Specifically, thereis no evidence of RPA, JEWELRY ENAMELER, epiglottitis, tracheitis, ?? Impression:??subjective neck swelling.?? Electronically Signed on 05/10/23 09:06 PM Carlos Eduardo Milian MD Emergency department Discharge instructions * Carlos Eduardo Milian MD: PERFORM Event Display: ED Discharge Information Authored Date: [id number] DANIELITO WOODY :1985 Age:38 years Sex:Male Visit Date:05/10/2023 Primary Care Physician: Mirtha Ny PHOTO EQUIPMENT TECHNICIAN Discharge Instructions We would like to thank you for allowing us to assist you with your healthcare needs. The following includes patient education materials and information regarding your injury/illness. ?? You were seen at [facility] for evaluation of subjective neck swelling. At the time of your evaluation no significant abnormalities were noted. Please continue using your nasal sprays as prescribed and follow-up your primary care physician in 2-4 days if you have any further concerns.??Please read and follow all of the instructions below. ?? When calling for follow-up care, please make the office aware that this follow- up is from your recent emergency room visit.? Your care today was limited to identifying and treating emergent medical problems only. Many peoplehave subtle differences in their test results that require follow up with their outpatient physician(s) to correctly determine if this represents a normal variation or concerning abnormality with respect to your specific health.??The care given to you today was limited to identifying and treating emergent medical problems - you need to request a copy of all of your medical records from today's visit and follow up with your outpatient physician(s) to review both today's visit and your overall health. If you have any new symptoms or if you are at all concerned about your health please return immediately to the emergency department. ?? Prescriptions: If you are uninsured or have financial difficulties with filling your prescription(s), you may consider using a free pharmacy discount service such as [employer] ([employer]) or [employer] ([employer]). These services allow you to search for a medication on your phone (or computer) and obtain a coupon that usually has a significant discount from the list castellanos at a pharmacy. Your physician does not have a financial relationship with either of these services. You may also wish to speak with your physician to determine if lower cost prescriptions are possible. ?? Discharge Vitals Temperature??(Temporal Artery) 96.8 ??F (36.0 ??C) Heart Rate??(Monitored) 72 Respiratory Rate?? 20 Blood Pressure?? 133/87?? Height?? 70.00 in (177.8 cm) Weight?? 324.14 lb (147 kg) BMI?? 46.5 Allergies BEE VENOM PROTEIN (HONEY BEE) INSECT VENOM penicillins What to Do Next Upcoming Scheduled Appointments Friday 8:30 AM EDT ?? With: [facility] PHOTO EQUIPMENT TECHNICIAN Where: [facility] [address] [place] [address] [place] [address] Status: Confirmed You were treated today on an emergency [...] Much When Why Instructions Next Dose Unchanged tncmp-U-sfgvcfunenalz (Gas-X Prevention 600units oral capsule) 1 Capsules [...] food, beverage, or other oral meds ?? Patient/Multiplex Operator Signature Patient Name:ANNALISE DANIELITO Nabila I have received this information and my questions have been answered. Patient/Multiplex Operator Name: Patient/Multiplex Operator Signature: Relationship to Patient: Witness Name/Signature: Date: Electronically Signed on: 05/10/2023 21:06 ESTSigned by:ZULEMA Emergency department Note * Lisa Gibbs: PERFORM Event Display: ED Notes Authored Date: [id number] Patient Care team information Care Team Personnel Name: Mirtha Ny NP Position: PowerChart View Only Member Role: Informed Provider Address: Address: [address] [place] [id number] Name: Eliud Ford RN Position: Nurse Member Role: ED Nurse Name: Carlos Eduardo Milian MD Position: Physician Member Role: Admitting Physician Care Team Related Persons Name: DANIELITO CEDENO Address: [address] [address] Address: [address] [phone] Name: DANIELITO CEDENO Address: [address] [address] Address: [place] [address] [phone] Name: JOSE WEBB
--- OUTSIDE RECORDS SUMMARY | 2023-05-20 20:39 | XMS_ITS | Continuity of Care Document ---
Author Name Unknown Organization [facility] Address [address] [place] [address] Care Team Providers Care Forest Management Professor Name Role Phone Natan Sandoval Primary Care Physician [facility] [address] [place] [address] Discharge Disposition: Home or Self Care Attending Physician: Natan Sandoval MD Admitting Physician: Natan Sandoval MD Referring Physician: Natan Sandoval MD Allergies, Adverse Reactions, Alerts Substance Reaction Severity Status BEE VENOM PROTEIN (HONEY BEE) Unknown Active INSECT VENOM Unknown Active penicillins Unknown Active Assessment and Plan Future Appointments Immunizations Given and Recorded Vaccine Date Status [...] Once, # 1 EA, 0 Refill(s), Pharmacy: [facility], 175.28, cm, 11/17/21 8:57:00 EDT, Height/Length Dosing, 168.28, kg, 11/17/21 8:57:00 EDT, Weight Dosing Start Date: 12/24/21 Status: Ordered ibuprofen 600 mg oral tablet See Instructions Start Date: 11/21/21 Status: Ordered Lexapro 10 mg oral tablet 10 mg = 1 tab, Oral, Daily, # 30 tab, 0 Refill(s) Start Date: 10/23/21 Status: Ordered metFORMIN 500 mg oral tablet 500 mg = 1 tab, Daily Start Date: 11/21/21 Status: Ordered modafinil 100 mg oral tablet 100 mg = 1 tab, Oral, every morning, # 30 tab, 0 Refill(s), Pharmacy: [facility], 178, cm, 01/15/22 8:47:00 EDT, Height/Length Dosing, 160, kg, 01/15/22 8:47:00 EDT, Weight Dosing Start Date: 02/07/22 Status: Ordered omeprazole 20 mg oral delayed release capsule 20 mg = 1 cap, Oral, Daily, # 90 cap, 3 Refill(s), Pharmacy: [facility], 178, cm, 01/15/22 8:47:00 EDT, Height/Length Dosing, 160, kg, 01/15/22 8:47:00 EDT, Weight Dosing Start Date: 03/07/22 Status: Ordered SEROquel 100 mg oral tablet 100 mg = 1 tab, Oral, every evening, 0 Refill(s) Start Date: 10/23/21 Status: Ordered Problem List Condition Confirmation Course [...] Former tobacco user Tobacco Use:. Sex Male US Heart * Valentina Peguero J: PERFORM Event Display: Echo Report Authored Date: Patient Care team information Personnel Name: Natan Sandoval MD Address: Address: [address]
--- OUTSIDE RECORDS SUMMARY | 2023-05-20 20:39 | XMS_ITS | Continuity of Care Document ---
Author Name Unknown Organization [facility] Address [address] [place] [address] Care Team Providers Care Car Usher Name Role Phone Natan Sandoval Primary Care Physician Encounter [facility] Date(s): 05/14/22 - 05/14/22 [facility] [address] [place] [address] Discharge Disposition: Home or Self Care Attending [...] Once, # 1 EA, 0 Refill(s), Pharmacy: [facility], 175.28, cm, 11/17/21 8:57:00 EDT, Height/Length [...] morning, # 30 tab, 0 Refill(s), Pharmacy: [facility], 178, cm, 01/15/22 8:47:00 EDT, Height/Length Dosing, 160, kg, 01/15/22 8:47:00 EDT, Weight Dosing Start Date: 02/07/22 Status: Ordered omeprazole 20 mg oral delayed release capsule 20 mg = 1 cap, Oral, Daily, # 90 cap, 3 Refill(s), Pharmacy: [facility], 178, cm, 01/15/22 8:47:00 EDT, Height/Length Dosing, [...] distal radius Results Laboratory List Name Date CBC w/o Diff (Hemogram) 05/14/22 Comprehensive Metabolic Panel (CMP) Hemoglobin A1c 05/14/22 Lipid Panel 05/14/22 TSH w/ Rflx to Free T4 05/14/22 Most recent to oldest [Reference Range]: 1 WBC [5.0-10.0 x10^3/mcL] 8.8 x10^3/mcL (05/14/22 8:37 AM) RBC [4.6-6.0 x10^6/mcL] 4.6 x10^6/mcL (05/14/22 8:37 AM) BUN [7-18 mg/dL] 14 mg/dL (05/14/22 8:37 AM) Cholesterol Total [50-200 mg/dL] 133 mg/ dL (05/14/22 8:37 AM) LDL [0-130 mg/dL] 88 mg/dL (05/14/22 8:37 AM) Glucose Level [74-106 mg/dL] 137 mg/dL *HI* (05/14/22 8:37 AM) Potassium Level [3.5-5.1 mmol/L] 4.1 mmo l/L (05/14/22 8:37 AM) MCV [80.0-96.0] 91.1 (05/14/22 8:37 AM) HDL [40-60 mg/dL] 30 mg/dL *LOW* (05/14/22 8:37 AM) AST [15-37 unit/L] 25 unit/L (05/14/22 8:37 AM) ALT [16-63 unit/L] 54 unit/L (05/14/22 8:37 AM) MCHC [31.0-35.0 g/dL] 32.3 g/dL (05/14/22 8:37 AM) Sodium Level [136-145 mmol/L] 140 mmol/L (05/14/22 8:37 AM) Hct [41.0-51.0 %] 42.1 % (05/14/22 8:37 AM) Triglycerides [0-150 mg/dL] 74 mg/dL (05/14/22 8:37 AM) Calcium Level [8.5-10.1 mg/dL] 8.3 mg/dL *LOW* (05/14/22 8:37 AM) Albumin Level [3.4-5.0 g/dL] 3.3 g/dL *LOW* (05/14/22 8:37 AM) Protein Total [6.4-8.2 g/dL] 7.0 g/dL (05/14/22 8:37 AM) MCH [26.0-32.0 pg] 29.4 pg (05/14/22 8:37 AM) Bilirubin Total [0.2-1.0 mg/dL] 0.5 mg/d L (05/14/22 8:37 AM) Hgb [14.0-18.0 g/dL] 13.6 g/dL *LOW* (05/14/22 8:37 AM) Alk Phos [46-146 unit/L] 44 unit/L *LOW* (05/14/22 8:37 AM) Platelets [130-450 x10^3/mcL] 239 x10^3/ mcL (05/14/22 8:37 AM) CO2 [21-32 mmol/L] 32 mmol/L (05/14/22 8:37 AM) TSH [0.358-3.740 mcIntlUnit/mL] 2.171 mc IntlUnit/mL (05/14/22 8:37 AM) eGFR Non-AA [>=60] 118 (05/14/22 8:37 AM) eGFR AA [>=60] 118 (05/14/22 8:37 AM) Hemoglobin A1c [4.0-6.0 %] 7.0 % *HI* (05/14/22 8:37 AM) Chloride Level [98-107 mmol/L] 103 mmol/ L (05/14/22 8:37 AM) RDW-CV [11.5-17.0 %] 13.7 % (05/14/22 8:37 AM) Creatinine Level [0.70-1.30 mg/dL] 0.77 mg/dL (05/14/22 8:37 AM) Social History Social History Type Response Tobacco Former tobacco user Tobacco Use:. Sex Male Patient Care team information Personnel Name: Natan Sandoval MD Address: Address: [address]
--- OUTSIDE RECORDS SUMMARY | 2023-05-20 20:39 | XMS_ITS | Continuity of Care Document ---
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 Name Role Phone Natan Sandoval Primary Care Physician [facility]s): 09/28/22 - 09/28/22 [facility] [address] [place] [address] Encounter Diagnosis Abdominal pain(Discharge Diagnosis) - 09/28/22 Discharge Disposition: Home or Self Care Attending Physician: Hollie Faust MD Admitting Physician: Hollie Faust MD Allergies, Adverse Reactions, Alerts Substance Reaction Severity Status BEE VENOM PROTEIN (HONEY BEE) Unknown Active INSECT VENOM Unknown Active penicillins Unknown Active Assessment and Plan Future Appointments Future Scheduled Tests Laboratory* Semen Analysis Post Vasectomy 06/25/22 Functional Status 09/28/22 Other exposure to Infectious Disease Non e [...] Once, # 1 EA, 0 Refill(s), Pharmacy: [facility][id number], 175.28, cm, 11/17/21 8:57:00 EDT, Height/Length Dosing, 168.28, kg, 11/17/21 8:57:00 EDT, Weight Dosing Start Date: 12/24/21 Status: Ordered Gas-X Prevention 600 units oral capsule 600 units 1 cap, Oral, BID, PRN as needed for gas, # 60 cap, 1 Refill(s), Pharmacy: [facility], 178, cm, 01/15/22 8:47:00 EDT, Height/Length Dosing, 160, kg, 01/15/22 8:47:00 EDT, Weight Dosing Start Date: 09/24/22 Status: Ordered ibuprofen 600 mg oral tablet See Instructions Start Date: 11/21/21 Status: Ordered Lexapro 10 mg oral tablet 10 mg = 1 tab, Oral, Daily, # 90 tab, 3 Refill(s), Pharmacy: [facility] [place], 178, cm, 01/15/22 8:47:00 EDT, Height/Length Dosing, 160, kg, 01/15/22 8:47:00 EDT, Weight Dosing Start Date: 09/24/22 Status: Ordered pantoprazole 20 mg oral delayed release tablet 1 tab, Oral, Daily, # 90 tab, 3 Refill(s), Pharmacy: [facility], 178, cm, 01/15/22 8:47:00 EDT, Height/Length Dosing, 160, kg, 01/15/22 8:47:00 EDT, Weight Dosing Start Date: 09/24/22 Status: Ordered Rybelsus 14 mg oral tablet 14 mg = 1 tab, Oral, Daily, take at least 30 minutes before first food, beverage, or other oral meds, # 90 tab, 3 Refill(s), Pharmacy: [facility], 178, cm, 01/15/22 8:47:00 EDT, Height/Length Dosing, 160, kg, 01/15/22 8:47:00 EDT, Weight... Start Date: 09/24/22 Status: Ordered SEROquel 100 mg oral tablet 100 mg = 1 tab, Oral, every evening, # 90 tab, 3 Refill(s), Pharmacy: [facility], 178, cm, 01/15/22 8:47:00 EDT, Height/Length [...] radius Results Laboratory List Name Date CBC w/ Diff 09/28/22 Comprehensive Metabolic Panel 09/28/22 Automated Diff 09/28/22 Most recent to oldest [Reference Range]: 1 WBC [5.0-10.0 x10^3/mcL] 10.6 x10^3/mcL *HI* (09/28/22 4:43 PM) RBC [4.6-6.0 x10^6/mcL] 4.5 x10^6/mcL *LOW* (09/28/22 4:43 PM) Neutro Auto [40.0-75.0 %] 71.1 % (09/28/22 4:43 PM) Lymph Auto [20.0-50.0 %] 20.5 % (09/28/22 4:43 PM) Canadian Auto [2.0-15.0 %] 5.2 % (09/28/22 4:43 PM) Basophil Auto [0.0-1.0 %] 0.3 % (09/28/22 4:43 PM) BUN [7-18 mg/dL] 17 mg/dL (09/28/22 4:43 PM) Glucose Level [74-106 mg/dL] 120 mg/dL *HI* (09/28/22 4:43 PM) Potassium Level [3.5-5.1 mmol/L] 3.7 mmo l/L (09/28/22 4:43 PM) MCV [80.0-96.0 fL] 88.7 fL (09/28/22 4:43 PM) AST [15-37 unit/L] 37 unit/L (09/28/22 4:43 PM) ALT [16-63 unit/L] 70 unit/L *HI* (09/28/22 4:43 PM) MCHC [31.0-35.0 g/dL] 32.8 g/dL (09/28/22 4:43 PM) Sodium Level [136-145 mmol/L] 138 mmol/L (09/28/22 4:43 PM) Hct [41.0-51.0 %] 40.2 % *LOW* (09/28/22 4:43 PM) Calcium Level [8.5-10.1 mg/dL] 9.1 mg/dL (09/28/22 4:43 PM) Albumin Level [3.4-5.0 g/dL] 3.5 g/dL (09/28/22 4:43 PM) Protein Total [6.4-8.2 g/dL] 7.2 g/dL (09/28/22 4:43 PM) MCH [26.0-32.0 pg] 29.1 pg (09/28/22 4:43 PM) Neutro Absolute 7.6 x10^3/mcL *NA* (09/28/22 4:43 PM) Bilirubin Total [0.2-1.0 mg/dL] 0.4 mg/d L (09/28/22 4:43 PM) Hgb [14.0-18.0 g/dL] 13.2 g/dL *LOW* (09/28/22 4:43 PM) Alk Phos [46-146 unit/L] 54 unit/L (09/28/22 4:43 PM) Platelets [130-450 x10^3/mcL] 258 x10^3/ mcL (09/28/22 4:43 PM) CO2 [21-32 mmol/L] 28 mmol/L (09/28/22 4:43 PM) eGFR Non-AA [>=60] 99 (09/28/22 4:43 PM) eGFR AA [>=60] 99 (09/28/22 4:43 PM) Chloride Level [98-107 mmol/L] 100 mmol/ L (09/28/22 4:43 PM) RDW-CV [11.5-14.5 %] 13.2 % (09/28/22 4:43 PM) Imm Gran Auto [0.0-0.9 %] 0.3 % (09/28/22 4:43 PM) Creatinine Level [0.70-1.30 mg/dL] 1.00 mg/dL (09/28/22 4:43 PM) Eos, Auto [1.0-6.0 %] 2.6 % (09/28/22 4:43 PM) Vital Signs Most recent to oldest [Reference Range]: 1 Temperature Temporal Artery [36-38 Deg C ] 36.6 Deg C (09/28/22 4:14 PM) Peripheral Pulse Rate [60-100 bpm] 81 bp m (09/28/22 4:14 PM) Respiratory Rate [12-24 br/min] 16 br/mi n (09/28/22 4:14 PM) Blood Pressure [90-140/60-90 mmHg] 142/8 1mmHg *HI* (09/28/22 4:14 PM) Weight Dosing 162.30 kg (09/28/22 4:21 PM) Weight Estimated 162.30 kg (09/28/22 4:14 PM) Height/Length Dosing 176.000 cm (09/28/22 4:21 PM) Height/Length Estimated 176.000 cm (09/28/22 4:14 PM) Social History Social History Type Response Tobacco Former tobacco user Tobacco Use:. Sex Male Hospital Discharge Instructions Patient Education 09/28/2022 16:26:20 Abdominal Pain, Adult Abdominal Pain, Adult Pain in the abdomen (abdominal pain) can be caused by many things. Often, abdominal pain is not serious and it gets better with no treatment or by being treated at home. However, sometimes abdominal pain is serious. Your health care provider will ask questions about your medical history and do a physical exam to try to determine the cause of your abdominal pain. Follow these instructions at home: Medicines ??? Take afwx-ieg-bvhkzam and prescription medicines only as told by your health care provider. ??? Do not take a laxative unless told by your health care provider. General instructions ??? Watch your condition for any changes. ??? Drink enough fluid to keep your urine pale yellow. ??? Keep all follow-up visits as told by your health care provider. This is important. Contact a health care provider if: ??? Your abdominal pain changes or gets worse. ??? You are not hungry or you lose weight without trying. ??? You are constipated or have diarrhea for more than 2???3 days. ??? You have pain when you urinate or have a bowel movement. ??? Your abdominal pain wakes you up at night. ??? Your pain gets worse with meals, after eating, or with certain foods. ??? You are vomiting and cannot keep anything down. ??? You have a fever. ??? You have blood in your urine. Get help right away if: ??? Your pain does not go away as soon as your health care provider told you to expect. ??? You cannot stop vomiting. ??? Your pain is only in areas of the abdomen, such as the right side or the left lower portion of the abdomen. Pain on the right side could be caused by appendicitis. ??? You have bloody or black stools, or stools that look like tar. ??? You have severe pain, cramping, or bloating in your abdomen. ??? You have signs of dehydration, such as: ??? Dark urine, very little urine, or no urine. ??? Cracked lips. ??? Dry mouth. ??? Sunken eyes. ??? Sleepiness. ??? Weakness. ??? You have trouble breathing or chest pain. Summary ??? Often, abdominal pain is not serious and it gets better with no treatment or by being treated at home. However, sometimes abdominal pain is serious. ??? Watch your condition for any changes. ??? Take vdwf-rgb-utipfmi and prescription medicines only as told by your health care provider. ??? Contact a health care provider if your abdominal pain changes or gets worse. ??? Get help right away if you have severe pain, cramping, or bloating in your abdomen. This information is not intended to replace advice given to you by your health care provider. Make sure you discuss any questions you have with your health care provider. Document Revised: 06/16/2020 Document Reviewed: 09/06/2019 [facility] Patient Education ?? 2021 [employer]. Follow Up Care 09/28/2022 16:14:14 With:Follow up with primary care provider Address: When:1 to 2 weeks Physician Emergency department Note * Hollie Faust MD: PERFORM Event Display: ED Note Physician Authored Date: [id number] ANNALISEDANIELITO :1985 Age:37 years Sex:Male Visit Date:09/28/2022 Primary Care Physician: Natan Sandoval MD Basic Information Time Seen: Hollie Faust MD / 09/28/2022 16:24 Chief Complaint Pt c/o gas pain on the left side and my burps sound different, they're loud. Pt reports I drink a lot of soda. Pt denies N/V but states while sleeping clear stuff came out on pillow. History Of Present Illness: Patient reports over??the last day or 2 he has had very loud burps. ??Patient reports he has not??felt??well but cannot say what is making him not feel well??since yesterday he ate??late last night??and has not eaten today??he does state he drank??2 leona gema's and cranberry juice??at work??and has been drinking some water. ??Patient states for his umbilical hernia he has been seen at [facility]??however they will not do surgery on him??until he loses weight he states. 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 Review of Systems: see hpi for ros Physical Exam Vitals & Measurements T:??36.6?C ??(Temporal Artery)?? HR:??81??(Peripheral)?? RR:??16?? BP:??142/81?? SpO2:??97%?? HT:??176.000??cm?? WT:??162.30??kg??(Estimated)?? Pain Score:??8?? O2 Therapy:??Room air?? General: Alert and oriented, well nourished,?No??acute distress Eye: PER?Normal??conjunctiva,??No??scleral icterus HENT: Normocephalic,??nontraumatic??Normal hearing Lungs: Clear to auscultation,?Non-labored?? respiration Heart:?Normal?? rate,?Regular??rhythm,?No??murmur,?No??gallop,?No??edema Chest: wall excursion wnl no abnormal movements no obvious deformities Abdomen: Soft, umbilical hernia present??lower aspect is soft there is a firm component but it doesnot seem to be tender on palpation??on exam non- distended,?Normal?? bowel sounds,?No??masses Musculoskeletal:?Normal?? range of motion and strength,?No??tenderness,?No??swelling Skin: Skin is warm, dry and pink,?No??rashes,?No??lesions Urinary:??Patient has erythema at the tip of the penis I think that this is??from his penis rubbingagainst his shorts. Neurologic: Awake, alert and oriented X4 Psychiatric: Cooperative, appropriate mood and affect Medical Decision Making: For MDM please see under assessment and plan Procedure No Qualifying Data Assessment/Plan 1.??Abdominal pain??R10.9 Patient reports some gurgling and loud burps??discussed with patient some Tums and Maalox might be helpful also some heat to his abdomen and walking around may be helpful.?? Patient concerned about some erythema at the tip of his penis I think this is from??the tip of his penis rubbing against his shorts discussed with him some clotrimazole cream??or??cream may be helpful??to help soothe the area.?? If patient worsens or does not continue to improve he will return to the emergency department orsee primary care provider. Ordered: Discharge Patient, 09/28/22 17:26:00 EDT, Home Independently, Constant Indicator ?? Patient Education Abdominal Pain, Adult Follow Up With When Contact Information Follow up with primary care provider Within 1 to 2 weeks Additional Instructions: Medication Reconciliation Unchanged reeol-O-ushboltftdukl (Gas-X Prevention 600 units oral capsule)1 Capsules [...] 600 mg oral tablet) ?? pantoprazole (pantoprazole 20 mg oral delayed release tablet)1 tab Oral (given by mouth) every day.Refills: 3. ?? QUEtiapine (SEROquel 100 mg oral tablet)1 [...] hyperactivity disorder, predominantly inattentive type Chronic gingivitis Dermatophytosis of the trunk Developmental delay Dysphagia [...] Healthy adult: Mother and Father. Lab Results CBC and Differential?? LATEST RESULTS?? HISTORICAL RESULTS?? WBC?? 09/28/22 16:43?? 10.6 ??High?? 05/14/22?? 8.8?? RBC?? 09/28/22 16:43?? 4.5 ??Low?? 05/14/22?? 4.6?? Hgb?? 09/28/22 16:43?? 13.2 ??Low?? 05/14/22?? 13.6 ??Low?? Hct?? 09/28/22 16:43?? 40.2 ??Low?? 05/14/22?? 42.1?? MCV?? 09/28/22 16:43?? 88.7?? 05/14/22?? 91.1?? MCH?? 09/28/22 16:43?? 29.1?? 05/14/22?? 29.4?? MCHC?? 09/28/22 16:43?? 32.8?? 05/14/22?? 32.3?? RDW-CV?? 09/28/22 16:43?? 13.2?? 05/14/22?? 13.7?? Platelets?? 09/28/22 16:43?? 258?? 05/14/22?? 239?? Neutro Auto?? 09/28/22 16:43?? 71.1?? 11/17/21?? 69.3?? Lymph Auto?? 09/28/22 16:43?? 20.5?? 11/17/21?? 19.0 ??Low?? Canadian Auto?? 09/28/22 16:43?? 5.2?? 11/17/21?? 7.0?? Eos, Auto?? 09/28/22 16:43?? 2.6?? 11/17/21?? 4.0?? Basophil Auto?? 09/28/22 16:43?? 0.3?? 11/17/21?? 0.4?? Imm Gran Auto?? 09/28/22 16:43?? 0.3?? 11/17/21?? 0.3?? Neutro Absolute?? 09/28/22 16:43?? 7.6?? 11/17/21?? 5.2? Routine Chemistry?? LATEST RESULTS?? HISTORICAL RESULTS?? Sodium Level?? 09/28/22 16:43?? 138?? 09/24/22?? 137?? Potassium Level?? 09/28/22 16:43?? 3.7?? 09/24/22?? 4.1?? Chloride Level?? 09/28/22 16:43?? 100?? 09/24/22?? 101?? CO2?? 09/28/22 16:43?? 28?? 09/24/22?? 29?? Alk Phos?? 09/28/22 16:43?? 54?? 05/14/22?? 44 ??Low?? AST?? 09/28/22 16:43?? 37?? 05/14/22?? 25?? ALT?? 09/28/22 16:43?? 70 ??High?? 05/14/22?? 54?? BUN?? 09/28/22 16:43?? 17?? 09/24/22?? 20 ??High?? Glucose Level?? 09/28/22 16:43?? 120 ??High?? 09/24/22?? 250 ??High?? Creatinine Level?? 09/28/22 16:43?? 1.00?? 09/24/22?? 0.83?? eGFR AA?? 09/28/22 16:43?? 99?? 09/24/22?? 116?? eGFR Non-AA?? 09/28/22 16:43?? 99?? 09/24/22?? 116?? Calcium Level?? 09/28/22 16:43?? 9.1?? 09/24/22?? 8.9?? Protein Total?? 09/28/22 16:43?? 7.2?? 05/14/22?? 7.0?? Albumin Level?? 09/28/22 16:43?? 3.5?? 05/14/22?? 3.3 ??Low?? Bilirubin Total?? 09/28/22 16:43?? 0.4?? 05/14/22?? 0.5? Electronically Signed on 09/28/22 05:29 PM Hollie Faust MD Emergency department Discharge instructions * Hollie Faust MD: PERFORM Event Display: ED Discharge Information Authored Date: [id number] DANIELITO WOODY :1985 Age:37 years Sex:Male Visit Date:09/28/2022 Primary Care Physician: Natan Sandoval MD Discharge Instructions We would like to thank you for allowing us to assist you with your healthcare needs. The following includes patient education materials and information regarding your injury/illness. Diagnosis from Today's Visit Abdominal pain Discharge Vitals Temperature??(Temporal Artery) 97.9 ??F (36.6 ??C) Heart Rate??(Peripheral) 81 Respiratory Rate?? 16 Blood Pressure?? 142/81?? Height?? 69.29 in (176.000 cm) Weight??(Estimated) 357.87 lb (162.30 kg) Allergies BEE VENOM PROTEIN (HONEY BEE) INSECT VENOM penicillins What to Do Next Instructions from Your Care Team For gurgling of your abdomen try heat to your abdomen??you may also try walking around to see if this will get??your abdomen??moving a little more.?? If you worsen return to the emergency department or see primary care provider. You Need to Schedule the Following Appointments Follow Up with??Follow up with primary care provider When:??Within 1 to 2 weeks Upcoming Scheduled Appointments Friday 9:20 AM EDT ?? Friday 9:00 AM EDT ?? 2022 8:40 AM EST ?? You [...] Much When Why Instructions Next Dose Unchanged ysbvm-W-bgjtanewxbdhv (Gas-X Prevention 600units oral capsule) 1 Capsules [...] oral tablet) See instructions Unchanged pantoprazole (pantoprazole 20 mg oral delayed release tablet) 1 tab Oral (given by mouth) Every day Unchanged QUEtiapine (SEROquel 100 mg oral tablet) 1 tab Oral (given by mouth) Every evening Unchanged semaglutide (Rybelsus 14 mg oral tablet) 1 tab Oral (given by mouth) Every day Hyperglycemia Severe obesity take at least 30 minutes before first food, beverage, or other oral meds ?? Education Materials Abdominal Pain, Adult Pain in the abdomen (abdominal pain) can be caused by many things. Often, abdominal pain is not serious and it gets better with no treatment or by being treated at home. However, sometimes abdominal pain is serious. Your health care provider will ask questions about your medical history and do a physical exam to try to determine the cause of your abdominal pain. Follow these instructions at home: Medicines ? Take cskn-ylg-nhwuasp and prescription medicines only as told by your health care provider. ? Do not take a laxative unless told by your health care provider. General instructions ? Watch your condition for any changes. ? Drink enough fluid to keep your urine pale yellow. ? Keep all follow-up visits as told by your health care provider. This is important. Contact a health care provider if: ? Your abdominal pain changes or gets worse. ? You are not hungry or you lose weight without trying. ? You are constipated or have diarrhea for more than 2???3 days. ? You have pain when you urinate or have a bowel movement. ? Your abdominal pain wakes you up at night. ? Your pain gets worse with meals, after eating, or with certain foods. ? You are vomiting and cannot keep anything down. ? You have a fever. ? You have blood in your urine. Get help right away if: ? Your pain does not go away as soon as your health care provider told you to expect. ? You cannot stop vomiting. ? Your pain is only in areas of the abdomen, such as the right side or the left lower portion of the abdomen. Pain on the right side could be caused by appendicitis. ? You have bloody or black stools, or stools that look like tar. ? You have severe pain, cramping, or bloating in your abdomen. ? You have signs of dehydration, such as: ? Dark urine, very little urine, or no urine. ? Cracked lips. ? Dry mouth. ? Sunken eyes. ? Sleepiness. ? Weakness. ? You have trouble breathing or chest pain. Summary ? Often, abdominal pain is not serious and it gets better with no treatment or by being treated at home. However, sometimes abdominal pain is serious. ? Watch your condition for any changes. ? Take bvdk-obb-hkxwaiq and prescription medicines only as told by your health care provider. ? Contact a health care provider if your abdominal pain changes or gets worse. ? Get help right away if you have severe pain, cramping, or bloating in your abdomen. This information is not intended to replace advice given to you by your health care provider. Make sure you discuss any questions you have with your health care provider. Document Revised: 06/16/2020 Document Reviewed: 09/06/2019 [employer] Patient Education ?? 2021 [employer] Tests Performed Lab Test Name Test Result Date/Time WBC 10.6 x10^3/mcL 09/28/2022 16:43 EDT RBC 4.5 x10^6/mcL 09/28/2022 16:43 EDT Hgb 13.2 g/dL 09/28/2022 16:43 EDT Hct 40.2 % 09/28/2022 16:43 EDT MCV 88.7 fL 09/28/2022 16:43 EDT MCH 29.1 pg 09/28/2022 16:43 EDT MCHC 32.8 g/dL 09/28/2022 16:43 EDT RDW-CV 13.2 % 09/28/2022 16:43 EDT Platelets 258 x10^3/mcL 09/28/2022 16:43 EDT Neutro Auto 71.1 % 09/28/2022 16:43 EDT Lymph Auto 20.5 % 09/28/2022 16:43 EDT Canadian Auto 5.2 % 09/28/2022 16:43 EDT Eos, Auto 2.6 % 09/28/2022 16:43 EDT Basophil Auto 0.3 % 09/28/2022 16:43 EDT Imm Gran Auto 0.3 % 09/28/2022 16:43 EDT Neutro Absolute 7.6 x10^3/mcL 09/28/2022 16:43 EDT Sodium Level 138 mmol/L 09/28/2022 16:43 EDT Potassium Level 3.7 mmol/L 09/28/2022 16:43 EDT Chloride Level 100 mmol/L 09/28/2022 16:43 EDT CO2 28 mmol/L 09/28/2022 16:43 EDT Alk Phos 54 unit/L 09/28/2022 16:43 EDT AST 37 unit/L 09/28/2022 16:43 EDT ALT 70 unit/L 09/28/2022 16:43 EDT BUN 17 mg/dL 09/28/2022 16:43 EDT Glucose Level 120 mg/dL 09/28/2022 16:43 EDT Creatinine Level 1.00 mg/dL 09/28/2022 16:43 EDT eGFR AA 99 09/28/2022 16:43 EDT eGFR Non-AA 99 09/28/2022 16:43 EDT Calcium Level 9.1 mg/dL 09/28/2022 16:43 EDT Protein Total 7.2 g/dL 09/28/2022 16:43 EDT Albumin Level 3.5 g/dL 09/28/2022 16:43 EDT Bilirubin Total 0.4 mg/dL 09/28/2022 16:43 EDT Patient/Dukey Rider Signature Patient Name:DANIELITO WOODY I have received this information and my questions have been answered. Patient/Dukey Rider Name: Patient/Dukey Rider Signature: Relationship to Patient: Witness Name/Signature: Date: Electronically Signed on: 09/28/2022 17:27 EDTSigned by:AMANDA Emergency department Note * Chelo Gallagher: PERFORM Event Display: ED Notes Authored Date: [id number] Patient Care team information Care Team Personnel Name: Natan Sandoval MD Position: Physician Member Role: Primary Care Physician Address: Address: [address] Name: Eliud Ford RN Position: Nurse Member Role: ED Nurse Name: Hollie Faust MD Position: Physician Member Role: ED Physician Address: Address: [address] [place] [address] Care Team Related Persons Name: JOSE WEBB
--- OUTSIDE RECORDS SUMMARY | 2023-05-20 20:39 | XMS_ITS | Continuity of Care Document ---
Author Name Unknown Organization [facility] Address [address] [place] [address] Care Team Providers Care Softball Umpire Name Role Phone Natan Sandoval Primary Care Physician Encounter [facility] [id number] Date(s): 11/05/22 - 11/05/22 [facility] [address] [place] [address] Encounter Diagnosis Obstructive sleep apnea syndrome(Discharge Diagnosis) - 11/05/22 Discharge Disposition: Home or Self Care Attending Physician: Kami Jimenez MD Allergies, Adverse Reactions, Alerts Substance Reaction Severity Status BEE VENOM PROTEIN (HONEY BEE) Unknown Active INSECT VENOM Unknown Active penicillins Unknown Active Assessment and Plan Future Appointments Future Scheduled Tests Laboratory* Semen Analysis Post Vasectomy 06/25/22 Functional Status 11/05/22 Other exposure to Infectious Disease Non e [...] Once, # 1 EA, 0 Refill(s), Pharmacy: [facility] #58, 175.28, cm, 11/17/21 8:57:00 EDT, Height/Length Dosing, 168.28, kg, 11/17/21 8:57:00 EDT, Weight Dosing Start Date: 12/24/21 Status: Ordered Gas-X Prevention 600 units oral capsule 600 units 1 cap, Oral, BID, PRN as needed for gas, # 60 cap, 1 Refill(s), Pharmacy: [facility], 178, cm, 01/15/22 8:47:00 EDT, Height/Length Dosing, 160, kg, 01/15/22 8:47:00 EDT, Weight Dosing Start Date: 09/24/22 Status: Ordered ibuprofen 600 mg oral tablet See Instructions Start Date: 11/21/21 Status: Ordered Lexapro 10 mg oral tablet 10 mg = 1 tab, Oral, Daily, # 90 tab, 3 Refill(s), [facility], [facility], cm, 01/15/22 8:47:00 EDT, Height/Length Dosing, 160, kg, 01/15/22 8:47:00 EDT, Weight Dosing Start Date: 09/24/22 Status: Ordered pantoprazole 20 mg oral delayed release tablet 1 tab, Oral, Daily, # 90 tab, 3 Refill(s), Pharmacy: [facility], 178, cm, 01/15/22 8:47:00 EDT, Height/Length Dosing, 160, kg, 01/15/22 8:47:00 EDT, Weight Dosing Start Date: 09/24/22 Status: Ordered Rybelsus 14 mg oral tablet 14 mg = 1 tab, Oral, Daily, take at least 30 minutes before first food, beverage, or other oral meds, # 90 tab, 3 Refill(s), Pharmacy: [facility], 178, cm, 01/15/22 8:47:00 EDT, Height/Length Dosing, 160, kg, 01/15/22 8:47:00 EDT, Weight... Start Date: 09/24/22 Status: Ordered SEROquel 100 mg oral tablet 100 mg = 1 tab, Oral, every evening, # 90 tab, 3 Refill(s), Pharmacy: [facility], 178, cm, 01/15/22 8:47:00 EDT, Height/Length Dosing, [...] Range]: 1 Peripheral Pulse Rate [60-100 bpm] 66 bp m (11/05/22 8:55 AM) Blood Pressure [90-140/60-90 mmHg] 148/8 2mmHg *HI* (11/05/22 8:55 AM) Weight 158.58 kg (11/05/22 8:55 AM) Weight Measured (lbs) 349.609 lb (11/05/22 8:55 AM) Height 176 cm (11/05/22 8:55 AM) Height/Length Measured (inches) 69.29 in ch (11/05/22 8:55 AM) BSA Measured 2.78 m2 (11/05/22 8:55 AM) Body Mass Index 51.19 kg/m2 (11/05/22 8:55 AM) Social History Social History Type Response Tobacco Former tobacco user Tobacco Use:. Sex Male Progress note * Petey Garcia: PERFORM Event Display: Progress Note - Physician Authored Date: [id number] Physician Outpatient Note * Kami Jimenez MD: PERFORM, MODIFY Event Display: Office Clinic Note Physician Authored Date: [id number] ANNALISEDANIELITO :1985 Age:37 years Sex:Male Visit Date:11/05/2022 Primary Care Physician: Natan Sandoval MD Chief Complaint bipap compliance History of Present Illness He has not gotten a replacement mask since his last visit. Thinks his straps are all twisted. ?? He is able to sleep about 6-7 hours before his mask begins to get uncomfortable at night. ?? he has not yet had his hernia repair surgery, needs to lose more weight. He is walking 30-45 minutes a day now to try to lose weight. Review of Systems A 10-point REVIEW OF SYSTEM was obtained and reviewed, includes CONSTITUTIONAL, EYES, NOSE, THROAT,RESPIRATORY, HEART, GASTROINTESTINAL, UROLOGIC, MUSCULOSKELETAL, PSYCHIATRY, SKIN systems. Pertinent symptoms are discussed in history, otherwise negative. Physical Exam Vitals & Measurements HR:??66??(Peripheral)?? BP:??148/82?? SpO2:??97%?? HT:??176??cm?? WT:??158.58??kg?? BMI:??51.19?? BSA:??2.78?? General:??well appearing, appearing stated age, no acute distress,??obese??build HEENT: atraumatic skull, anicteric RESPIRATORY: quiet respiration, able to speak in full sentences without dyspnea, no accessory muscle use SKIN: no facial skin rash, no facial skin lesions PSYCHIATRIC: well groomed, fluent speech, good insight, linear thought process, good eye contact,balanced??affect NEUROLOGIC: alert, oriented, symmetric facial expression Clinic Assessment/Plan 1.??Obstructive sleep apnea syndrome??G47.33 Actions: COMPLETED - Referral Management, Medical Service: Other, Reason: please make sure patient gets areplacement headgear and cushions [place]. his is in horrible shape and not even sealing. I gave him an extra cushion but he needs to get these as often as provided by insurance via DME.... ?? I provided greater than??30??minutes in the care of this patient including chart review and documentation, more than half the time was spent in [id number] counseling. ?? 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 ?? Comorbidities??include: ?Obstructive Sleep Apnea, ??Anxiety, ADHD, Umbilical hernia, developmental delay. ?? Clinical Data Reviewed:? [place] Sleepiness Scale:?? 02/02??(11/05/2022) ESS - [place] Sleepiness Scale Total: 8 (07/23/22) ESS - [place] Sleepiness Scale Total: 6 (06/11/22) ESS - [place] Sleepiness Scale Total: 15 (02/26/22) ?? Machine Download Data:??Resmed AirSense 10 Auto BIPAP?? PAP Settings: ??Auto BIPAP?IMAX??25 ANA 15 PS 7??CmH2O Date Range: ?09/30/22 - 10/29/22 Days with Usage >=4 hours: ??63% Avg Usage per Day Used: ??4hr 50m Mean/Median Pressure: ?22.0/15.0 90th-tile/95th-tile Pressure: ?22.1/15.2 Median-90th%tile Leak??85.4/108.3? Avg Treatment ??AHI: ??7.8/hr ?? Sleep Clinical Timeline:?? He was seen in sleep clinic for sleep consultation by Dr Lim??at the kind request of Ruthy Cota M.D. on 05/23/14 for ESS of 21 and witnessed apneas. PSG was ordered at [facility]. ?? Diagnostic PSG on ??06/20/14, wt 290, [...] start auto cpap 8 to 18cm via [employer]. ?? 09/12/14 Titration Sleep??Study (wt 287lbs, BMI 41.5) CPAP 5 to 16 tested BIPAP 17/13 to 21/17 tested Best pressures: CPAP 15 or Bipap [...] 19 Ana 9 PS 4cm. ?? 11/13/2014: [facility] Follow up, ??Showed poor compliance on CPAP, only usage at 30 percent. Treatment AHI is excellent at 1.6 hr. Pt to work on increasing compliance. ?? 01/09/2015: [facility] Follow up, patient improved compliance to 77 percent. Reports reduction of daytime sleepiness. AHI 1.2/hr. At that the time he was on autocpap 8 to 18cm. ?? 04/22/2020: Transitioned to Geovanna Ravi MANAGER OF RADIOLOGY??at [facility]??Sleep Clinic. Phone visit, pt was off cpap because of device being broken. New device ordered. Unclear of setting. ?? 06/2020: visit with Geovanna at [facility], titration study suggested. Unclear if this was ever done, do not have report ?? 02/04/2020: Visit with Geovanna, sleep study recommended-unclear as to why. No [...] without airflow limitation on 20/15cm, but BIPAP [id number] appeared to keep SpO2 in 89 to [...] 25 ana 15 ps 7cm sent to [facility]. ?? 06/11/2022: Cont current BiPAP pressures.??Pt note [...] discussion was had today. Pt given links to??[employer] videos to assist him at home with [...] to qualify for hernia repair surgery. ?? Current??Mask:??Airfit F20 Medium FFM DME: [facility] ? Today's Assessment and Plan: See 11/05/22 entry as above Extensive In-clinic mask exam and education done today. Mask appears to fit better, but is due for replacement again. Headgear straps are visibly worn out and need replacing, very twisted around and Velcro is worn out. Demonstrated to patient how to properly use the magnetic attachments to put on/remove his mask. Order sent to [facility] for PAP supplies. Discussed mask hygiene. Patient is putting the cushion in a mild detergent. Recommend he also try to clean his headgear due to build up of sebum over time on it and shower before bedtime. Discussed replacing his PAP supplies regularly and staying in contact with his DME to place these regular orders. Download data reviewed and discussed with the patient. Moderate compliance, tx AHI 7.8/hr. He is encouraged to increase his compliance, will cont current auto BiPAP pressures. reviewed the machine settings with patient, he was curious about what PS 7 meant on his machine. ?? Follow up: 4 months or sooner if needed. ?? Remote Scribed by??Jose [...] What How Much When Why Instructions Unchanged [id number] (Gas-X Prevention 600 units oral capsule) 1 Capsules Oral (given by mouth) 2 times a day as needed for as needed for gas Gastroesophageal reflux disease Contact prescribing physician if questions or concerns ?? Unchanged EPINEPHrine (EpiPen 2-Rex 0.3 mg injectable kit) 0.3 Milligrams Intramuscular (in a muscle) Once Contact prescribing physician if questions or concerns ?? Unchanged escitalopram (Lexapro 10 mg oral tablet) 1 tab Oral (given by mouth) Every day Contact prescribing physician if questions or concerns ?? Unchanged ibuprofen (ibuprofen 600 mg oral tablet) See instructions Contact prescribing physician if questions or concerns ?? Unchanged pantoprazole (pantoprazole 20 mg oral delayed release tablet) 1 tab Oral (given by mouth) Every day Contact prescribing physician if questions or concerns ?? Unchanged QUEtiapine (SEROquel 100 mg oral tablet) 1 tab Oral (given by mouth) Every evening Contact prescribing physician if questions or concerns ?? Unchanged semaglutide (Rybelsus 14 mg oral tablet) 1 tab Oral (given by mouth) Every day Hyperglycemia Severe obesity take at least 30 minutes before first food, beverage, or other oral meds Contact prescribing physician if questions or concerns ?? Allergies BEE VENOM PROTEIN (HONEY BEE) [...] pediatric vaccine 09/02/1997 Recorded Electronically Signed on 11/05/22 09:35 AM Kami Jimenez MD Reviewed by: Kami Jimenez MD Patient Care team information Care Team Personnel Name: Natan Sandoval MD Position: Physician Member Role: Primary Care Physician Address: Address: [place] [address]- Care Team Related Persons Name: JOSE WEBB Address: Home
--- OUTSIDE RECORDS SUMMARY | 2023-05-20 20:39 | XMS_ITS | Continuity of Care Document ---
Author Name Unknown Organization [facility] Address [address] [place] [address] Care Team Providers Care Customer Engagement Manager Name Role Phone Natan Sandoval Primary Care Physician [phone] Encounter [facility] Date(s): 11/08/22 - 11/08/22 [facility] [address] [place] [address] Discharge Disposition: Home or Self Care Attending Physician: Stephanie Beasley PA-C Admitting Physician: Stephanie Beasley PA-C Referring Physician: Stephanie Beasley PA-C Allergies, Adverse Reactions, Alerts Substance Reaction Severity [...] Once, # 1 EA, 0 Refill(s), Pharmacy: [facility] #58, 175.28, cm, 11/17/21 8:57:00 EDT, Height/Length Dosing, 168.28, kg, 11/17/21 8:57:00 EDT, Weight Dosing Start Date: 12/24/21 Status: Ordered Gas-X Prevention 600 units oral capsule 600 units 1 cap, Oral, BID, PRN as needed for gas, # 60 cap, 1 Refill(s), [facility], cm, 01/15/22 8:47:00 EDT, Height/Length Dosing, 160, kg, 01/15/22 8:47:00 EDT, Weight Dosing Start Date: 09/24/22 Status: Ordered ibuprofen 600 mg oral tablet See Instructions Start Date: 11/21/21 Status: Ordered Lexapro 10 mg oral tablet 10 mg = 1 tab, Oral, Daily, # 90 tab, 3 Refill(s), [facility], cm, 01/15/22 8:47:00 EDT, Height/Length Dosing, 160, kg, 01/15/22 8:47:00 EDT, Weight Dosing Start Date: 09/24/22 Status: Ordered pantoprazole 20 mg oral delayed release tablet 1 tab, Oral, Daily, # 90 tab, 3 Refill(s), [facility], cm, 01/15/22 8:47:00 EDT, Height/Length Dosing, 160, kg, 01/15/22 8:47:00 EDT, Weight Dosing Start Date: 09/24/22 Status: Ordered Rybelsus 14 mg oral tablet 14 mg = 1 tab, Oral, Daily, take at least 30 minutes before first food, beverage, or other oral meds, # 90 tab, 3 Refill(s), Pharmacy: [facility], 178, cm, 01/15/22 8:47:00 EDT, Height/Length Dosing, 160, kg, 01/15/22 8:47:00 EDT, Weight... Start Date: 09/24/22 Status: Ordered SEROquel 100 mg oral tablet 100 mg = 1 tab, Oral, every evening, # 90 tab, 3 Refill(s), Pharmacy: [facility], 178, cm, 01/15/22 8:47:00 [...] Member Role: Primary Care Physician Address: Address: [address] Care Team Related Persons Name: JOSE WEBB Address: Home
--- OUTSIDE RECORDS SUMMARY | 2023-05-20 20:39 | XMS_ITS | Continuity of Care Document ---
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 [address] [place] [address] Encounter Diagnosis Obstructive sleep apnea(Discharge Diagnosis) - 06/11/22 Development delay(Discharge Diagnosis) - 06/11/22 Discharge Disposition: Home or Self Care Attending Physician: Kami Jimenez MD Allergies, Adverse Reactions, Alerts Substance Reaction Severity Status BEE VENOM PROTEIN (HONEY BEE) Unknown Active INSECT VENOM Unknown Active penicillins Unknown Active Assessment and Plan Future Appointments Functional Status 06/11/22 Other exposure to Infectious Disease Non e [...] Once, # 1 EA, 0 Refill(s), Pharmacy: [facility], 175.28, cm, 11/17/21 8:57:00 EDT, Height/Length [...] morning, # 30 tab, 0 Refill(s), Pharmacy: [facility], 178, cm, 01/15/22 8:47:00 EDT, Height/Length Dosing, 160, kg, 01/15/22 8:47:00 EDT, Weight Dosing Start Date: 02/07/22 Status: Ordered omeprazole 20 mg oral delayed release capsule 20 mg = 1 cap, Oral, Daily, # 90 cap, 3 Refill(s), Pharmacy: [facility], 178, cm, 01/15/22 8:47:00 EDT, Height/Length Dosing, 160, kg, 01/15/22 8:47:00 EDT, Weight Dosing Start Date: 03/07/22 Status: Ordered Rybelsus 3 mg oral tablet 3 mg = 1 tab, Oral, Daily, take at least 30 minutes before first food, beverage, or other oral meds, # 30 tab, 0 Refill(s), Pharmacy: [facility], 178, cm, 01/15/22 8:47:00 EDT, Height/Length Dosing, 160, kg, 01/15/22 8:47:00 EDT, Weight... Start Date: 05/22/22 Status: Ordered SEROquel 100 mg oral tablet [...] Range]: 1 Peripheral Pulse Rate [60-100 bpm] 78 bp m (06/11/22 1:46 PM) Blood Pressure [90-140/60-90 mmHg] 139/7 8mmHg (06/11/22 1:46 PM) Weight 162.48 kg (06/11/22 1:46 PM) Weight Measured (lbs) 358.207 lb (06/11/22 1:46 PM) Height 176 cm (06/11/22 1:46 PM) Height/Length Measured (inches) 69.29 in ch (06/11/22 1:46 PM) BSA Measured 2.82 m2 (06/11/22 1:46 PM) Body Mass Index 52.45 kg/m2 (06/11/22 1:46 PM) Social History Social History Type Response Tobacco Former tobacco user Tobacco Use:. Sex Male Polysomnography (sleep) study * Kim Abreu: PERFORM Event Display: Sleep Study Authored Date: [id number] DANIELITO LIRA :1985 Age:36 years Sex:Male Visit Date:06/11/2022 Primary Care Physician: Natan Sandoval MD ? CPAP AND BIPAP TITRATION STUDY WITH TRANSCUTANEOUS CO2 MONITORING ?? Name: Danielito Lira Attending: Natan Sandoval MD : 1985 Location: [facility] MR#: [id number] C Date of Study: 02/28/2022 Report Date: 03/06/2022 ? INDICATION:? 36 year male presents with extremely severe Obstructive Sleep Apnea associated withNocturnal Hypoxemia. ?? Diagnostic PSG on 06/20/14, wt 290, BMI 42: Patient had extremely severe ARON??associated with hypoxemia with overall AHI 97/hr, overall RDI 100/hr, supine AHI??129/hr, left lateral AHI 46/hr, right lateral AHI 91/hr. 120 minutes with oxygen less??than??88 percent, mean oxygen was 87??percent on??roomair, arousal index 12/hr,??PLM index 0.2/hr, normal sinus rhythm with occasional PVCs. ?? 09/12/14 Titration Sleep Study (wt 287lbs, BMI 41.5) CPAP 5 to 16 tested. BIPAP 17/13 to 21/17 tested.??Best pressures: CPAP 15 or Bipap 18/14 or 19/14cm worked well for respiratory??events including in supine REM sleep. PLM index of 0.5/hr. Improvement of pts oxygen at mean oxygen at??91 percent and David spo2 at 82??percent. 7 minutes ofspo2 oxygen less than 88 percent. Remarkable improvements.??Recommended that patient can be on autocpap 13 to 18cm or bipap imax 19 Ana??9 PS 4cm. ?? Patient is currently on Auto CPAP 6 to 16 CmH2O.?? Ht: 5' 10. ??Wt.: 366.61 lbs. ??BMI = 52.6 kg/m2.? FINDINGS: Lights Out Time: ??11:15:11 PM Lights On Time: ??6:16:41 AM ?? Sleep Architecture ?? Stages ?? TRT: 422.00 min. N1: 3% (11.0 min.) TST: 386.5 min. N2: 34% (131.0 min.) Sleep Efficiency: 92% N3: 46% (177.5 min.) Sleep Onset: 0.5 min. REM: 17% (67.0 min.) REM Latency: 183.5 min. ? Wake After Sleep Onset: 34.5 min. ? CPAP/BIPAP??Data: ? a.??Tested CPAP/BiPAP pressures: 6, 7, 8, 9, 10, 11, 12/8, 13/9, 14/10, 15/11, 16/11, 17/12, 17/13,18/13, 19/14, 20/14, 20/15, 21/15, 21/16, 22/15, 23/15, 23/16, 23/17 cmH2O. b.??Hypopnea scoring by the 4% desaturation criteria. c.??Mean oxygen saturation: ??89% on room air. David??oxygen saturation: ??62% on room air.??125.3 minutes were spent on oxygen saturation less than or equal to 88%.? Other: a.?? Arousal index:??36/hr. (234??arousals) b.?? PLM index:??0.0/hr.??(0??limb movements) c.?PLM arousal index:??0.0/hr. (0 limb movements) d.?? EKG:??Normal sinus.??.??Heart rate minimum:??51/min. ??Maximum:??79/min. ??Mean:??64/min. e.?No significant arrhythmia. f.?No Devon-Moeller respirations. g.?No parasomnias. h.?? EEG: ??No obvious abnormalities noted on this limited EEG montage. ? IMPRESSION: 1.??CPAP and BIPAP titration for Severe Obstructive Sleep Apnea associated with significant nocturnal hypoxemia. 2.??Optimal pressure at 20/15 cm H2O and above which resolved significant apneas, hypopneas, snoring and desaturations including during supine REM sleep.?? 3.??There were still some oxygen desaturations without airflow limitation on 20/15cm, but BIPAP 22/[id number] appeared to keep SpO2 in 89 to [...] asleep TcCO2 at 49 to 50mmHg range. ?? RECOMMENDATIONS: 1.??The patient should be changed to bi-level therapy with mask of choice, heated humidification and ramp at a pressure BIPAP 22/15 cm H2O. Alternatively and preferably auto BIPAP Imax 25 cm H2O, Ana 15 cm H2O and PS ??7 cm H2O can be used. 2.??SIOMARA Order for new machine at recommended setting will be sent to patient's DME choice, per discussion at prior sleep clinic visit, to be followed by face to face follow-up in sleep clinic after machine plug shaper. ?? Thank you for the courtesy of this referral. ? Report Date: 03/06/2022 Kami Jimenez MD ? Name: Danielito Lira Attending: Natan Sandoval MD : 1985 Location: [facility] MR#: [id number] C Date of Study: 02/28/2022 Report Date: 03/06/2022 ? POLYSOMNOGRAPHY REPORT ?? Sleep Times ?? Sleep Data ?? Recording Start: 10:55:42 PM Total Sleep Time (TST): 386.5 min. (6.4 hrs.) Lights Out: 11:15:11 PM Wake Before Sleep: 0.5 min. Sleep Onset: 0.5 min. Wake During Sleep: 34.5 min. Lights On: 6:16:41 AM Wake After Sleep: 0.0 min. Recording End: 6:43:07 AM Total Wake Time: 35.5 min. Recording Duration: 467.5 min. (7.8 hrs.) REM Time: 67.0 min. (1.1 hrs.) Total Recording Time (TRT = Lights Out to Lights On): 422.00 min. (7.0 hrs.) NREM Time:?? 319.5 min. (5.3 hrs.) Sleep Period Time (SPT): 421.0 min. (7.0 hrs.) Slow Wave Sleep Time: 177.5 min. ? REM Periods: 4 ? Sleep and REM Latency ?? Sleep Onset: 0.5 min. REM Onset (from sleep onset): 183.5 min Sleep Efficiency 1 92% (100xTST/TIB) Sleep Efficiency 2 92% (100xTST/SPT) ? Latency from Lights Out ?? Arousals and Awakenings ?? Latency to N1 0.5 min. Total Arousals 234 Latency to N2 2.5 min. Arousal Index 36 Latency to N3 31.0 min. Total Awakenings 16 ? Awakening Index 2 ? Sleep Stages Time (min) % TST % TRT % SPT N1 11.0 min. 3 % 3 % 3 % N2 131.0 min. 34 % 31 % 31 % N3 177.5 min. 46 % 42 % 42 % REM 67.0 min. 17 % 16 % 16 % Wake 35.5 min. ?? 8 % 8 % ? Body Position Position Time REM NREM Apnea/ AHI Mean SpO2 % Snore (min.) (min.) (min.) (min.) Hypopnea ?? Sleep Index ? C / O / M / H? Supine 208.5 36.5 164.8 69 / 0 / 94 49 89 % 373 Left 213.0 30.5 154.7 / 0 / 58 52 89 % 274 Prone 0.0 0.0 0.0 N/A / N/A / N/A / N/A N/A N/A % N/A Right 0.0 0.0 0.0 N/A / N/A / N/A / N/A N/A N/A % N/A Upright 0.0 0.0 0.0 N/A / N/A / N/A / N/A N/A N/A % N/A ? Arousal Data ? REM NREM Total Arousals with Respiratory Events: 4 167 171 Arousals with LM Events: 0 0 0 Arousals with Snoring Events: 0 17 17 Non-Specific Arousals: 25 21 46 Total Arousals: 29 205 234 Arousal Index: 26 38 36 ? Respiratory Data ?? AHI NREM: 59.9 RDI NREM: 60.3 RERA Events NREM: 2 Apnea + Hypopnea Events NREM: 319 AHI REM: 6.3 RDI REM: 6.3 RERA Events REM: 0 Apnea + Hypopnea Events REM: 7 AHI TST: 50.6 RDI TST: 50.9 RERA Events TST: 2 Apnea + Hypopnea Events TST: 326 ? NREM Central Apnea Obstructive Apnea Mixed Apnea Hypopnea Central Hypopnea RERA Occurrences 6 163 0 150 0 2 Max. Duration (sec.) 13.5 26.1 0.0 19.7 0.0 15.4 Mean Duration (sec.) 12.2 13.8 0.0 13.5 0.0 15.3 Total Duration (min.) 1.2 37.5 0.0 33.8 0.0 0.5 NREM Index 1.1 30.6 0.0 28.2 0 0 ? REM Central Apnea Obstructive Apnea Mixed Apnea Hypopnea Central Hypopnea RERA Occurrences 0 5 0 2 0 0 Max. Duration (sec.) 0.0 21.2 0.0 17.8 0.0 0.0 Mean Duration (sec.) 0.0 15.0 0.0 16.4 0.0 0.0 Total Duration (min.) 0.0 1.2 0.0 0.5 0.0 0.0 REM Index 0.0 4.5 0.0 1.8 0 0 ? Total Central Apnea Obstructive Apnea Mixed Apnea Hypopnea Central Hypopnea RERA Occurrences 6 168 0 152 0 2 Max. Duration (sec.) 13.5 26.1 0.0 19.7 0.0 15.4 Mean Duration (sec.) 12.2 13.9 0.0 13.6 0.0 15.3 Total Duration (min.) 1.2 38.8 0.0 34.4 0.0 0.5 Total Index 0.9 26.1 0.0 23.6 0 0 ? Oximetry Data ? NREM REM TST Wake Mean SpO2 %: 88 % 91 % 89 % 91 % Min SpO2 %: 70 % 62 % 62 % 79 % Max SpO2%: 96 % 97 % 97 % 98 % ? Total REM NREM Awake <50% 0.0 min. 0.0 min. 0.0 min. 0.0 min. 51 - 60% 0.0 min. 0.0 min. 0.0 min. 0.0 min. 61 - 70% 0.4 min. 0.3 min. 0.1 min. 0.0 min. 71 - 80% 18.6 min. 0.6 min. 17.6 min. 0.4 min. 81 - 90% 239.9 min. 25.2 min. 208.1 min. 6.7 min. 91 - 100% 144.3 min. 38.3 min. 92.1 min. 14.0 min. Average 89 91 88 91 Minimum SpO2 62 62 70 79 Desaturation Event Index 68.2 28.7 83.9 0.0 # Desat. Events 456 23 433 0 Time(%) with Saturation 31.1 2.7 27.5 0.8 Time(min.) with Saturation 125.3 11.0 111.1 3.3 ? Snoring Data ? REM NREM Total Total Snore Events with Arousals: 0 17 17 Total Snore Occurrences: 53 2,046 2,099 Total Snoring Time (min): 1.5 59.0 60.5 Snoring Index: 47.5 384.2 325.8 ? Cardiac Data ? NREM REM TRT WAKE Mean Heart Rate (bpm): 64 62 64 64 Low Heart Rate (bpm): 51 54 51 50 High Heart Rate (bpm): 79 75 79 77 ? Periodic Limb Movement Data ?? Rhythmic LM Total LM Total LM w/ Arousals LM w/Arousals Movements Count Index Count Index Wake: 0 0.0 - - Stage N1: 0 0.0 0 0.0 Stage N2: 0 0.0 0 0.0 Stage N3: 0 0.0 0 0.0 REM: 0 0.0 0 0.0 Total Sleep: 0 0.0 0 0.0 ? PLM Series Count: 0 ? Mean PLMs per Series: 0 ? CPAP: ?? Therapy (cm H2O) Time (min.) REM (min.) NREM (min.) SE (%) Apnea C/O/M Hypop. Snore Index AHI RDI Lowest SpO2 (%) Arousal Index 6 2.02 0.00 2.02 67 1/4/0 0 326.97 148.62 148.62 75 29.72 7 10.17 0.00 10.17 100 0/30/0 1 424.63 182.82 182.82 72 112.05 8 21.44 0.00 21.44 100 0/39/0 16 461.69 153.90 153.90 74 114.72 9 17.50 0.00 17.50 100 0/18/0 26 593.25 150.88 150.88 73 82.30 10 10.06 0.00 10.06 100 0/11/0 6 507.09 101.42 101.42 73 95.45 11 18.02 0.00 18.02 97 0/1/0 11 775.83 39.96 39.96 73 6.66 12/8 12.00 0.00 12.00 100 0/15/0 6 504.93 104.99 104.99 70 74.99 13/9 10.17 0.00 10.17 100 0/10/0 17 518.94 159.22 159.22 72 88.45 14/10 16.63 0.00 16.63 94 0/5/0 23 656.53 101.00 101.00 73 46.89 15/11 20.41 0.00 20.41 100 0/6/0 14 690.80 58.79 58.79 72 23.52 16/11 8.74 0.00 8.74 100 0/8/0 4 583.33 82.35 82.35 76 27.45 17/12 13.03 0.00 13.03 100 0/2/0 5 672.39 32.24 32.24 71 9.21 18/13 34.63 0.00 34.63 97 1/6/0 6 542.28 22.52 22.52 76 20.79 19/14 21.93 11.31 10.63 100 0/4/0 1 131.30 13.68 13.68 62 13.68 20/15 41.30 22.69 18.60 94 1/3/0 2 91.53 8.72 8.72 77 29.06 21/16 3.92 0.00 3.92 20 2/2/0 2 107.08 91.78 91.78 81 61.19 17/13 8.29 0.00 8.29 82 0/1/0 2 332.79 21.70 21.70 75 21.70 20/14 15.45 0.00 15.45 100 0/0/0 0 3.88 0.00 0.00 87 0.00 21/15 43.34 6.41 36.93 100 0/2/0 5 34.61 9.69 9.69 73 8.31 23/17 10.47 10.47 0.00 100 0/0/0 0 34.40 0.00 0.00 84 22.93 23/15 20.99 13.62 7.37 64 1/0/0 5 34.30 17.15 22.87 76 48.60 22/15 24.82 1.35 23.47 100 0/1/0 0 4.83 2.42 2.42 78 4.83 23/16 1.15 1.15 0.00 100 0/0/0 0 0.00 0.00 0.00 86 52.04 ? Titration Table (chronological): ?? Therapy Detail TRT (min) TST (min) Supine (min) REM (min) Hypop Count Apnea C/O/M AHI RDI SpO2% Mean/Low Snore Index Arousal Index CPAP (CPAP/Mask/Humidifier/Pressure Relief) 6/F/H/E2 3.0 2.0 0.0 0.0 0 1/4/0 148.6 148.6 86/75 327.0 29.7 7/F/H/E2 10.2 10.2 0.0 0.0 1 0/30/0 182.8 182.8 85/72 424.6 112.1 8/F/H/E2 21.4 21.4 2.5 0.0 16 0/39/0 153.9 153.9 87/74 461.7 114.7 9/F/H/E2 17.5 17.5 17.5 0.0 26 0/18/0 150.9 150.9 86/73 593.3 82.3 10/F/H/E2 10.1 10.1 3.7 0.0 6 0/11/0 101.4 101.4 87/73 507.1 95.5 11/F/H/E2 18.5 18.0 6.7 0.0 11 0/1/0 40.0 40.0 87/73 775.8 6.7 ? Bilevel (IPAP/EPAP/Backup Rate/Mask/Humidifier/Pressure Relief) 12/8/0/F/H/E2 12.0 12.0 0.0 0.0 6 0/15/0 105.0 105.0 87/70 504.9 75.0 13/9/0/F/H/E2 10.2 10.2 2.0 0.0 17 0/10/0 159.2 159.2 87/72 518.9 88.5 14/10/0/F/H/E2 17.6 16.6 16.6 0.0 23 0/5/0 101.0 101.0 87/73 656.5 46.9 15/11/0/F/H/E2 20.4 20.4 20.4 0.0 14 0/6/0 58.8 58.8 88/72 690.8 23.5 16/11/0/F/H/E2 8.7 8.7 8.7 0.0 4 0/8/0 82.4 82.4 88/76 583.3 27.5 17/12/0/F/H/E2 13.0 13.0 13.0 0.0 5 0/2/0 32.2 32.2 89/71 672.4 9.2 18/13/0/F/H/E2 19.1 18.1 18.1 0.0 5 0/6/0 36.4 36.4 89/85 565.6 33.1 19/14/0/F/H/E2 13.5 13.5 13.5 11.3 1 0/4/0 22.3 22.3 87/62 200.5 22.3 20/15/0/F/H/E2 28.8 26.8 23.5 22.7 1 1/1/0 6.7 6.7 91/85 42.6 33.6 21/16/0/F/H/E2 19.2 3.9 0.0 0.0 2 2/2/0 91.8 91.8 89/81 107.1 61.2 17/13/0/F/H/E2 10.1 8.3 0.0 0.0 2 0/1/0 21.7 21.7 88/75 332.8 21.7 18/13/0/F/H/E2 16.5 16.5 0.0 0.0 1 1/0/0 7.3 7.3 90/76 516.7 7.3 19/14/0/F/H/E2 8.5 8.5 0.0 0.0 0 0/0/0 0.0 0.0 90/88 21.2 0.0 20/14/0/F/H/E2 15.5 15.5 0.0 0.0 0 0/0/0 0.0 0.0 90/87 3.9 0.0 21/15/0/F/H/E2 34.2 34.2 0.0 6.4 5 0/2/0 12.3 12.3 90/73 42.1 10.5 23/17/0/F/H/E2 10.5 10.5 0.0 10.5 0 0/0/0 0.0 0.0 92/84 34.4 22.9 23/15/0/F/H/E2 33.0 21.0 5.4 13.6 5 1/0/0 17.2 22.9 92/76 34.3 48.6 20/15/0/F/H/E2 15.0 14.5 14.5 0.0 1 0/2/0 12.4 12.4 90/77 181.7 20.7 21/15/0/F/H/E2 9.1 9.1 9.1 0.0 0 0/0/0 0.0 0.0 90/89 6.6 0.0 22/15/0/F/H/E2 24.8 24.8 24.8 1.3 0 0/1/0 2.4 2.4 89/78 4.8 4.8 23/16/0/F/H/E2 1.2 1.2 1.2 1.2 0 0/0/0 0.0 0.0 87/86 0.0 52.0 ? Comments: CPAP: 6/F/H/E2: Air TOUCH Size Medium (No Air Fit medium masks in the lab at this time) CPAP 6; Humidity 3; EPR 2; Leak 0-2 ? Mask= N:Nasal, P:Nasal Pillow, F:Full Face Humidifier= H:On, -:Off Pressure Relief= F:Flex, E:EPR, -:Off ?Transcutaneous CO2 Data ? TRT TST REM NREM Wake Mean (mmHg) 50.5 50.7 52.4 50.3 46.9 Max (mmHg) 59.0 59.0 59.0 57.0 52.0 Min (mmHg) 7.0 7.0 48.0 7.0 9.0 ? CPAP AND BIPAP TITRATION STUDY WITH TRANSCUTANEOUS CO2 MONITORING ?? Name: Danielito Lira Attending: Natan Sandoval MD : 1985 Location: [facility] MR#: [id number] C Date of Study: 02/28/2022 Report Date: 03/06/2022 ? INDICATION:? 36 year male presents with extremely severe Obstructive Sleep Apnea associated withNocturnal Hypoxemia. ?? Diagnostic PSG on 06/20/14, wt 290, BMI 42: Patient had extremely severe ARON??associated with hypoxemia with overall AHI 97/hr, overall RDI 100/hr, supine AHI??129/hr, left lateral AHI 46/hr, right lateral AHI 91/hr. 120 minutes with oxygen less??than??88 percent, mean oxygen was 87??percent on??roomair, arousal index 12/hr,??PLM index 0.2/hr, normal sinus rhythm with occasional PVCs. ?? 09/12/14 Titration Sleep Study (wt 287lbs, BMI 41.5) CPAP 5 to 16 tested. BIPAP 17/13 to 21/17 tested.??Best pressures: CPAP 15 or Bipap 18/14 or 19/14cm worked well for respiratory??events including in supine REM sleep. PLM index of 0.5/hr. Improvement of pts oxygen at mean oxygen at??91 percent and David spo2 at 82??percent. 7 minutes ofspo2 oxygen less than 88 percent. Remarkable improvements.??Recommended that patient can be on autocpap 13 to 18cm or bipap imax 19 Ana??9 PS 4cm. ?? Patient is currently on Auto CPAP 6 to 16 CmH2O.?? Ht: 5' 10. ??Wt.: 366.61 lbs. ??BMI = 52.6 kg/m2.? FINDINGS: Lights Out Time: ??11:15:11 PM Lights On Time: ??6:16:41 AM ?? Sleep Architecture ?? Stages ?? TRT: 422.00 min. N1: 3% (11.0 min.) TST: 386.5 min. N2: 34% (131.0 min.) Sleep Efficiency: 92% N3: 46% (177.5 min.) Sleep Onset: 0.5 min. REM: 17% (67.0 min.) REM Latency: 183.5 min. ? Wake After Sleep Onset: 34.5 min. ? CPAP/BIPAP??Data: ? a.??Tested CPAP/BiPAP pressures: 6, 7, 8, 9, 10, 11, 12/8, 13/9, 14/10, 15/11, 16/11, 17/12, 17/13,18/13, 19/14, 20/14, 20/15, 21/15, 21/16, 22/15, 23/15, 23/16, 23/17 cmH2O. b.??Hypopnea scoring by the 4% desaturation criteria. c.??Mean oxygen saturation: ??89% on room air. David??oxygen saturation: ??62% on room air.??125.3 minutes were spent on oxygen saturation less than or equal to 88%.? Other: a.?? Arousal index:??36/hr. (234??arousals) b.?? PLM index:??0.0/hr.??(0??limb movements) c.?PLM arousal index:??0.0/hr. (0 limb movements) d.?? EKG:??Normal sinus.??.??Heart rate minimum:??51/min. ??Maximum:??79/min. ??Mean:??64/min. e.?No significant arrhythmia. f.?No Devon-Moeller respirations. g.?No parasomnias. h.?? EEG: ??No obvious abnormalities noted on this limited EEG montage. ? IMPRESSION: 1.??CPAP and BIPAP titration for Severe Obstructive Sleep Apnea associated with significant nocturnal hypoxemia. 2.??Optimal pressure at 20/15 cm H2O and above which resolved significant apneas, hypopneas, snoring and desaturations including during supine REM sleep.?? 3.??There were still some oxygen desaturations without airflow limitation on 20/15cm, but BIPAP [id number] appeared to keep SpO2 in 89 to [...] asleep TcCO2 at 49 to 50mmHg range. ?? RECOMMENDATIONS: 1.??The patient should be changed to bi-level therapy with mask of choice, heated humidification and ramp at a pressure BIPAP 22/15 cm H2O. Alternatively and preferably auto BIPAP Imax 25 cm H2O, Ana 15 cm H2O and PS ??7 cm H2O can be used. 2.??SIOMARA Order for new machine at recommended setting will be sent to patient's DME choice, per discussion at prior sleep clinic visit, to be followed by face to face follow-up in sleep clinic after machine plug shaper. ?? Thank you for the courtesy of this referral. ? Report Date: 03/06/2022 Kami Jimenez MD ? Name: Danielito Lira Attending: Natan Sandoval MD : 1985 Location: [facility] MR#: [id number] C Date of Study: 02/28/2022 Report Date: 03/06/2022 ? POLYSOMNOGRAPHY REPORT ?? Sleep Times ?? Sleep Data ?? Recording Start: 10:55:42 PM Total Sleep Time (TST): 386.5 min. (6.4 hrs.) Lights Out: 11:15:11 PM Wake Before Sleep: 0.5 min. Sleep Onset: 0.5 min. Wake During Sleep: 34.5 min. Lights On: 6:16:41 AM Wake After Sleep: 0.0 min. Recording End: 6:43:07 AM Total Wake Time: 35.5 min. Recording Duration: 467.5 min. (7.8 hrs.) REM Time: 67.0 min. (1.1 hrs.) Total Recording Time (TRT = Lights Out to Lights On): 422.00 min. (7.0 hrs.) NREM Time:?? 319.5 min. (5.3 hrs.) Sleep Period Time (SPT): 421.0 min. (7.0 hrs.) Slow Wave Sleep Time: 177.5 min. ? REM Periods: 4 ? Sleep and REM Latency ?? Sleep Onset: 0.5 min. REM Onset (from sleep onset): 183.5 min Sleep Efficiency 1 92% (100xTST/TIB) Sleep Efficiency 2 92% (100xTST/SPT) ? Latency from Lights Out ?? Arousals and Awakenings ?? Latency to N1 0.5 min. Total Arousals 234 Latency to N2 2.5 min. Arousal Index 36 Latency to N3 31.0 min. Total Awakenings 16 ? Awakening Index 2 ? Sleep Stages Time (min) % TST % TRT % SPT N1 11.0 min. 3 % 3 % 3 % N2 131.0 min. 34 % 31 % 31 % N3 177.5 min. 46 % 42 % 42 % REM 67.0 min. 17 % 16 % 16 % Wake 35.5 min. ?? 8 % 8 % ? Body Position Position Time REM NREM Apnea/ AHI Mean SpO2 % Snore (min.) (min.) (min.) (min.) Hypopnea ?? Sleep Index ? C / O / M / H? Supine 208.5 36.5 164.8 / 0 / 94 49 89 % 373 Left 213.0 30.5 154.7 / 0 / 58 52 89 % 274 Prone 0.0 0.0 0.0 N/A / N/A / N/A / N/A N/A N/A % N/A Right 0.0 0.0 0.0 N/A / N/A / N/A / N/A N/A N/A % N/A Upright 0.0 0.0 0.0 N/A / N/A / N/A / N/A N/A N/A % N/A ? Arousal Data ? REM NREM Total Arousals with Respiratory Events: 4 167 171 Arousals with LM Events: 0 0 0 Arousals with Snoring Events: 0 17 17 Non-Specific Arousals: 25 21 46 Total Arousals: 29 205 234 Arousal Index: 26 38 36 ? Respiratory Data ?? AHI NREM: 59.9 RDI NREM: 60.3 RERA Events NREM: 2 Apnea + Hypopnea Events NREM: 319 AHI REM: 6.3 RDI REM: 6.3 RERA Events REM: 0 Apnea + Hypopnea Events REM: 7 AHI TST: 50.6 RDI TST: 50.9 RERA Events TST: 2 Apnea + Hypopnea Events TST: 326 ? NREM Central Apnea Obstructive Apnea Mixed Apnea Hypopnea Central Hypopnea RERA Occurrences 6 163 0 150 0 2 Max. Duration (sec.) 13.5 26.1 0.0 19.7 0.0 15.4 Mean Duration (sec.) 12.2 13.8 0.0 13.5 0.0 15.3 Total Duration (min.) 1.2 37.5 0.0 33.8 0.0 0.5 NREM Index 1.1 30.6 0.0 28.2 0 0 ? REM Central Apnea Obstructive Apnea Mixed Apnea Hypopnea Central Hypopnea RERA Occurrences 0 5 0 2 0 0 Max. Duration (sec.) 0.0 21.2 0.0 17.8 0.0 0.0 Mean Duration (sec.) 0.0 15.0 0.0 16.4 0.0 0.0 Total Duration (min.) 0.0 1.2 0.0 0.5 0.0 0.0 REM Index 0.0 4.5 0.0 1.8 0 0 ? Total Central Apnea Obstructive Apnea Mixed Apnea Hypopnea Central Hypopnea RERA Occurrences 6 168 0 152 0 2 Max. Duration (sec.) 13.5 26.1 0.0 19.7 0.0 15.4 Mean Duration (sec.) 12.2 13.9 0.0 13.6 0.0 15.3 Total Duration (min.) 1.2 38.8 0.0 34.4 0.0 0.5 Total Index 0.9 26.1 0.0 23.6 0 0 ? Oximetry Data ? NREM REM TST Wake Mean SpO2 %: 88 % 91 % 89 % 91 % Min SpO2 %: 70 % 62 % 62 % 79 % Max SpO2%: 96 % 97 % 97 % 98 % ? Total REM NREM Awake <50% 0.0 min. 0.0 min. 0.0 min. 0.0 min. 51 - 60% 0.0 min. 0.0 min. 0.0 min. 0.0 min. 61 - 70% 0.4 min. 0.3 min. 0.1 min. 0.0 min. 71 - 80% 18.6 min. 0.6 min. 17.6 min. 0.4 min. 81 - 90% 239.9 min. 25.2 min. 208.1 min. 6.7 min. 91 - 100% 144.3 min. 38.3 min. 92.1 min. 14.0 min. Average 89 91 88 91 Minimum SpO2 62 62 70 79 Desaturation Event Index 68.2 28.7 83.9 0.0 # Desat. Events </= 88% 456 23 433 0 Time(%) with Saturation </= 88% 31.1 2.7 27.5 0.8 Time(min.) with Saturation </= 88% 125.3 11.0 111.1 3.3 ? Snoring Data ? REM NREM Total Total Snore Events with Arousals: 0 17 17 Total Snore Occurrences: 53 2,046 2,099 Total Snoring Time (min): 1.5 59.0 60.5 Snoring Index: 47.5 384.2 325.8 ? Cardiac Data ? NREM REM TRT WAKE Mean Heart Rate (bpm): 64 62 64 64 Low Heart Rate (bpm): 51 54 51 50 High Heart Rate (bpm): 79 75 79 77 ? Periodic Limb Movement Data ?? Rhythmic LM Total LM Total LM w/ Arousals LM w/Arousals Movements Count Index Count Index Wake: 0 0.0 - - Stage N1: 0 0.0 0 0.0 Stage N2: 0 0.0 0 0.0 Stage N3: 0 0.0 0 0.0 REM: 0 0.0 0 0.0 Total Sleep: 0 0.0 0 0.0 ? PLM Series Count: 0 ? Mean PLMs per Series: 0 ? CPAP: ?? Therapy (cm H2O) Time (min.) REM (min.) NREM (min.) SE (%) Apnea C/O/M Hypop. Snore Index AHI RDI Lowest SpO2 (%) Arousal Index 6 2.02 0.00 2.02 67 1/4/0 0 326.97 148.62 148.62 75 29.72 7 10.17 0.00 10.17 100 0/30/0 1 424.63 182.82 182.82 72 112.05 8 21.44 0.00 21.44 100 0/39/0 16 461.69 153.90 153.90 74 114.72 9 17.50 0.00 17.50 100 0/18/0 26 593.25 150.88 150.88 73 82.30 10 10.06 0.00 10.06 100 0/11/0 6 507.09 101.42 101.42 73 95.45 11 18.02 0.00 18.02 97 0/1/0 11 775.83 39.96 39.96 73 6.66 12/8 12.00 0.00 12.00 100 0/15/0 6 504.93 104.99 104.99 70 74.99 13/9 10.17 0.00 10.17 100 0/10/0 17 518.94 159.22 159.22 72 88.45 14/10 16.63 0.00 16.63 94 0/5/0 23 656.53 101.00 101.00 73 46.89 15/11 20.41 0.00 20.41 100 0/6/0 14 690.80 58.79 58.79 72 23.52 16/11 8.74 0.00 8.74 100 0/8/0 4 583.33 82.35 82.35 76 27.45 17/12 13.03 0.00 13.03 100 0/2/0 5 672.39 32.24 32.24 71 9.21 18/13 34.63 0.00 34.63 97 1/6/0 6 542.28 22.52 22.52 76 20.79 19/14 21.93 11.31 10.63 100 0/4/0 1 131.30 13.68 13.68 62 13.68 20/15 41.30 22.69 18.60 94 1/3/0 2 91.53 8.72 8.72 77 29.06 21/16 3.92 0.00 3.92 20 2/2/0 2 107.08 91.78 91.78 81 61.19 17/13 8.29 0.00 8.29 82 0/1/0 2 332.79 21.70 21.70 75 21.70 20/14 15.45 0.00 15.45 100 0/0/0 0 3.88 0.00 0.00 87 0.00 21/15 43.34 6.41 36.93 100 0/2/0 5 34.61 9.69 9.69 73 8.31 23/17 10.47 10.47 0.00 100 0/0/0 0 34.40 0.00 0.00 84 22.93 23/15 20.99 13.62 7.37 64 1/0/0 5 34.30 17.15 22.87 76 48.60 22/15 24.82 1.35 23.47 100 0/1/0 0 4.83 2.42 2.42 78 4.83 23/16 1.15 1.15 0.00 100 0/0/0 0 0.00 0.00 0.00 86 52.04 ? Titration Table (chronological): ?? Therapy Detail TRT (min) TST (min) Supine (min) REM (min) Hypop Count Apnea C/O/M AHI RDI SpO2% Mean/Low Snore Index Arousal Index CPAP (CPAP/Mask/Humidifier/Pressure Relief) 6/F/H/E2 3.0 2.0 0.0 0.0 0 1/4/0 148.6 148.6 86/75 327.0 29.7 7/F/H/E2 10.2 10.2 0.0 0.0 1 0/30/0 182.8 182.8 85/72 424.6 112.1 8/F/H/E2 21.4 21.4 2.5 0.0 16 0/39/0 153.9 153.9 87/74 461.7 114.7 9/F/H/E2 17.5 17.5 17.5 0.0 26 0/18/0 150.9 150.9 86/73 593.3 82.3 10/F/H/E2 10.1 10.1 3.7 0.0 6 0/11/0 101.4 101.4 87/73 507.1 95.5 11/F/H/E2 18.5 18.0 6.7 0.0 11 0/1/0 40.0 40.0 87/73 775.8 6.7 ? Bilevel (IPAP/EPAP/Backup Rate/Mask/Humidifier/Pressure Relief) 12/8/0/F/H/E2 12.0 12.0 0.0 0.0 6 0/15/0 105.0 105.0 87/70 504.9 75.0 13/9/0/F/H/E2 10.2 10.2 2.0 0.0 17 0/10/0 159.2 159.2 87/72 518.9 88.5 14/10/0/F/H/E2 17.6 16.6 16.6 0.0 23 0/5/0 101.0 101.0 87/73 656.5 46.9 15/11/0/F/H/E2 20.4 20.4 20.4 0.0 14 0/6/0 58.8 58.8 88/72 690.8 23.5 16/11/0/F/H/E2 8.7 8.7 8.7 0.0 4 0/8/0 82.4 82.4 88/76 583.3 27.5 17/12/0/F/H/E2 13.0 13.0 13.0 0.0 5 0/2/0 32.2 32.2 89/71 672.4 9.2 18/13/0/F/H/E2 19.1 18.1 18.1 0.0 5 0/6/0 36.4 36.4 89/85 565.6 33.1 19/14/0/F/H/E2 13.5 13.5 13.5 11.3 1 0/4/0 22.3 22.3 87/62 200.5 22.3 20/15/0/F/H/E2 28.8 26.8 23.5 22.7 1 1/1/0 6.7 6.7 91/85 42.6 33.6 21/16/0/F/H/E2 19.2 3.9 0.0 0.0 2 2/2/0 91.8 91.8 89/81 107.1 61.2 17/13/0/F/H/E2 10.1 8.3 0.0 0.0 2 0/1/0 21.7 21.7 88/75 332.8 21.7 18/13/0/F/H/E2 16.5 16.5 0.0 0.0 1 1/0/0 7.3 7.3 90/76 516.7 7.3 19/14/0/F/H/E2 8.5 8.5 0.0 0.0 0 0/0/0 0.0 0.0 90/88 21.2 0.0 20/14/0/F/H/E2 15.5 15.5 0.0 0.0 0 0/0/0 0.0 0.0 90/87 3.9 0.0 21/15/0/F/H/E2 34.2 34.2 0.0 6.4 5 0/2/0 12.3 12.3 90/73 42.1 10.5 23/17/0/F/H/E2 10.5 10.5 0.0 10.5 0 0/0/0 0.0 0.0 92/84 34.4 22.9 23/15/0/F/H/E2 33.0 21.0 5.4 13.6 5 1/0/0 17.2 22.9 92/76 34.3 48.6 20/15/0/F/H/E2 15.0 14.5 14.5 0.0 1 0/2/0 12.4 12.4 90/77 181.7 20.7 21/15/0/F/H/E2 9.1 9.1 9.1 0.0 0 0/0/0 0.0 0.0 90/89 6.6 0.0 22/15/0/F/H/E2 24.8 24.8 24.8 1.3 0 0/1/0 2.4 2.4 89/78 4.8 4.8 23/16/0/F/H/E2 1.2 1.2 1.2 1.2 0 0/0/0 0.0 0.0 87/86 0.0 52.0 ? Comments: CPAP: 6/F/H/E2: Air TOUCH Size Medium (No Air Fit medium masks in the lab at this time) CPAP 6; Humidity 3; EPR 2; Leak 0-2 ? Mask= N:Nasal, P:Nasal Pillow, F:Full Face Humidifier= H:On, -:Off Pressure Relief= F:Flex, E:EPR, -:Off ?Transcutaneous CO2 Data ? TRT TST REM NREM Wake Mean (mmHg) 50.5 50.7 52.4 50.3 46.9 Max (mmHg) 59.0 59.0 59.0 57.0 52.0 Min (mmHg) 7.0 7.0 48.0 7.0 9.0 ? mmHg TRT (min.) TST (min.) % TST REM (min.) NREM (min.) Wake (min.) % TST w/PB >55?? 60.6 60.6 15.7% 21.0 39.6 0.0 0.0% >50 157.3 156.0 40.4% 29.3 126.7 1.3 0.0% 51-55 96.8 95.4 24.7% 8.3 87.2 1.3 0.0% 46-50 198.1 190.0 49.1% 31.0 158.9 8.1 0.0% 41-45 28.8 27.0 7.0% 0.0 27.0 1.7 INVALID% 36-40 2.9 1.5 0.4% 0.0 1.5 1.0 0.0% 31-35 0.0 0.0 0.0% 0.0 0.0 0.0 N/A% 26-30 0.0 0.0 0.0% 0.0 0.0 0.0 N/A% 21-25 0.0 0.0 0.0% 0.0 0.0 0.0 0.0% </=20 0.0 0.0 0.0% 0.0 0.0 0.0 0.0% ? mmHg TRT (min.) TST (min.) % TST REM (min.) NREM (min.) Wake (min.) % TST w/PB >55?? 60.6 60.6 15.7% 21.0 39.6 0.0 0.0% >50 157.3 156.0 40.4% 29.3 126.7 1.3 0.0% 51-55 96.8 95.4 24.7% 8.3 87.2 1.3 0.0% 46-50 198.1 190.0 49.1% 31.0 158.9 8.1 0.0% 41-45 28.8 27.0 7.0% 0.0 27.0 1.7 INVALID% 36-40 2.9 1.5 0.4% 0.0 1.5 1.0 0.0% 31-35 0.0 0.0 0.0% 0.0 0.0 0.0 N/A% 26-30 0.0 0.0 0.0% 0.0 0.0 0.0 N/A% 21-25 0.0 0.0 0.0% 0.0 0.0 0.0 0.0% 0.0 0.0 0.0% 0.0 0.0 0.0 0.0% ? Electronically Signed on 03/07/22 06:56 AM Kim Abreu Progress note * Petey Garcia: PERFORM Event Display: Progress Note - Physician Authored Date: [id number] Physician Outpatient Note * Kami Jimenez MD: PERFORM, MODIFY, MODIFY Event Display: Office Clinic Note Physician Authored Date: [id number] DANIELITO LIRA :1985 Age:37 years Sex:Male Visit Date:06/11/2022 Primary Care Physician: Natan Sandoval MD Chief Complaint bipap compliance History of Present Illness Pt reports he has lost a piece of his mask strap??and needs a new one. He has had difficulty with mask fit. ?? Pt does not recall when he received his new BiPAP machine but he is enjoying using it. Review of Systems A 10-point REVIEW OF SYSTEM was obtained and reviewed, includes CONSTITUTIONAL, EYES, NOSE, THROAT,RESPIRATORY, HEART, GASTROINTESTINAL, UROLOGIC, MUSCULOSKELETAL, PSYCHIATRY, SKIN systems. Pertinent symptoms are discussed in history, otherwise negative. Physical Exam Vitals & Measurements HR:??78??(Peripheral)?? BP:??139/78?? SpO2:??96%?? HT:??176??cm?? WT:??162.48??kg?? BMI:??52.45?? BSA:??2.82?? General well appearing??statedage, no acute distress,??obesebuild PSYCHIATRIC: well groomed, fluent speech, good insight, linear thought process, good eye contact,balanced NEUROLOGIC: alert, oriented, symmetric facial expression Assessment/Plan 1.??Obstructive sleep apnea??G47.33 2.??Development delay??R62.50 This visit was performed virtually using synchronous audio-visual connection via Zoom. As such, thephysical examination is necessarily limited. The risks and benefits of the use of this alternative platform were discussed with the patient and or guardian and verbal consent was obtained. My assessment and plans are based on such examination. Further evaluation, including in-person examination, may be needed depending on the response to management or today's recommendation.? The patient is??in the office.?? The provider is??home. ?? The patient has been positively identified and has consented to a video visit. ??I provided greater than??40??minutes in the care of this patient including chart review and documentation, more than half the time was spent in [id number] counseling. ?? 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 Comorbidities??include: ??Obstructive Sleep Apnea, ??Anxiety, ADHD, Umbilical hernia, developmental delay. ? Clinical Data Reviewed:? [place] Sleepiness Scale ?? ESS - [place] Sleepiness Scale Total: 6 (06/11/22) ESS - [place] Sleepiness Scale Total: 15 (02/26/22) ?? Machine Download Data:??[employer]MED??Aircurve 10 VAuto PAP Settings: ??Auto BIPAP? IMAX 25 ANA 15 PS 7CmH2O Date Range: ?05/11/22 - 06/09/21 Days with Usage >=4 hours: ??53% Avg Usage per Day Used: ??4hr 25min Mean/Median Pressure: ? 90th-tile/95th-tile Pressure: ?22.1/15.1 Median-90th%tile Leak?103.1 / 115 lpm Avg Treatment ??AHI: ??6.2/hr ?? Sleep Clinical Timeline:?? He was seen in sleep clinic for sleep consultation by Dr Lim??at the kind request of Ruthy Cota M.D. on 05/23/14 for ESS of 21 and witnessed apneas. PSG was ordered at [facility]. ?? Diagnostic PSG on ??06/20/14, [...] start auto cpap 8 to 18cm via [employer] ?? 09/12/14 Titration Sleep??Study (wt 287lbs, BMI [...] 19 Ana 9 PS 4cm. ?? 11/13/2014: [facility] Follow up, ??Showed poor compliance on CPAP, only usage at 30 percent. Treatment AHI is excellent at 1.6 hr. Pt to work on increasing compliance. ?? 01/09/2015: [facility] Follow up, patient improved compliance to 77 percent. Reports reduction of daytime sleepiness. AHI 1.2/hr. At that the time he was on autocpap 8 to 18cm. ?? 04/22/2020: Transitioned to Geovanna Ravi MEDICAL OFFICE ASSISTANT??at [facility]??Sleep Clinic. Phone visit, pt was off cpap because of device being broken. New device ordered. Unclear of setting. ?? 06/2020: visit with Geovanna at [facility], titration study suggested. Unclear if this was ever done, do not have report ?? 02/04/2020: Visit with Geovanna, sleep study recommended-unclear as to why. No records available. ? 02/26/22: Transferred to my care today, [facility] [...] Wt.: 366.61 lbs. ??BMI = 52.6 kg/m2.?? IMPRESSION: 1.??CPAP and BIPAP titration for Severe Obstructive Sleep Apnea associated with significant nocturnal hypoxemia. 2.??Optimal pressure at 20/15 cm H2O and above which resolved significant apneas, hypopneas, snoring and desaturations including during supine REM sleep.?? 3.??There were still some oxygen desaturations without airflow limitation on 20/15cm, but BIPAP 22/[id number] appeared to keep SpO2 in 89 to [...] TcCO2 at 49 to 50mmHg range. RECOMMENDATIONS: 1.??The patient should be changed to bi-level therapy with mask of choice, heated humidification and ramp at a pressure BIPAP 22/15 cm H2O. Alternatively and preferably auto BIPAP Imax 25 cm H2O, Ana 15 cm H2O and PS ??7 cm H2O can be used. ?? 03/06/22: siomara request for bipap machine at auto bipap imax 25 ana 15 ps 7cm sent to [facility]. ?? 06/11/2022: Cont current BiPAP pressures.??Pt note [...] know how to put on mask properly. ? Current: Auto BiPAP IMAX 25 ANA 15 PS7cm H20 with Airfit F20 Medium [facility], [facility] ?? Today's Assessment and Plan: Pt received his new BiPAP machine after his titration study some months ago and has been using it. He states he enjoys his new machine. Download data reviewed and discussed with pt. Pt has decent compliance with a reduction in AHI, tx AHI 6.2/hr. Pt's download data reveals a large air leak. He reports he has lost a piece of his mask strap and is unable to get a good mask fit. Extensively troubleshooted mask fit in office today withassistance of office staff and discussed importance of proper mask fit. Encouraged pt to increase his compliance to meet insurance requirement and adequately treat his ARON. Pt reports he is less sleepy during the day with BiPAP and has more energy at work. He is f/u with a general surgeon on 06/27 for a hernia repair surgery consult. Plan to f/u after that. ?? Follow up: 4??weeks or sooner if needed. ?? Remote Scribed by?? Jose Luis Moore Problem List/Past Medical History Ongoing Allergic reaction [...] of brain (09/27/2002)???Eye surgery (05/12/1996)???Wrist surgery Medications EpiPen 2-Rex 0.3 mg injectable kit, 0.3 mg, IM, Once ibuprofen 600 mg oral tablet, See Instructions Lexapro 10 mg oral tablet, 10 mg= 1 tab, Oral, Daily metFORMIN 500 mg oral tablet, 500 mg= 1 tab, Daily modafinil 100 mg oral tablet, 100 mg= 1 tab, Oral, every morning omeprazole 20 mg oral delayed release capsule, 20 mg= 1 cap, Oral, Daily, 3 refills Rybelsus 3 mg oral tablet, 3 mg= 1 tab, Oral, Daily SEROquel 100 mg oral tablet, 100 mg= 1 tab, Oral, every evening Allergies BEE VENOM PROTEIN (HONEY BEE) INSECT VENOM penicillins Social History Alcohol Current, 1-2 times per week Electronic Cigarette/Vaping Electronic Cigarette Use: Never. Employment/School Employed Home/Environment Lives with Alone. Living situation: Home/Independent. Substance Use Never Tobacco Former tobacco user Tobacco Use:. Family History Healthy adult: Mother and Father. Immunizations Vaccine Date Status tetanus/diphth/pertuss (Tdap) adult/adol 04/30/2022 Given influenza virus vaccine, inactivated 04/30/2022 Given SARS-CoV-2 mRNA (todiyanameran 12y+) bival 04/30/2022 Given influenza virus vaccine, [...] pediatric vaccine 09/02/1997 Recorded Electronically Signed on 06/11/22 03:16 PM Kami Jimenez MD Reviewed by: Kami Jimenez MD, Weili G MD Patient Care team information Personnel Name: Natan Sandoval MD Address: Address: [address] [address]
--- OUTSIDE RECORDS SUMMARY | 2023-05-20 20:39 | XMS_ITS | Continuity of Care Document ---
Author Name Unknown Organization [facility] Address [address] [place] [address] Care Team Providers Care Petroleum Inspector Name Role Phone Natan Sandoval Primary Care Physician Encounter [facility] Date(s): 03/20/23 - 03/20/23 [facility] [address] [place] [address] Encounter Diagnosis Pharyngitis(Discharge Diagnosis) - 03/20/23 Discharge Disposition: Home or Self Care Attending [...] Complete 3+ Views Left 12/16/22 Functional Status 03/20/23 Family Member Travel History No recent t [...] Once, # 1 EA, 0 Refill(s), Pharmacy: [id number], 175.28, cm, 11/17/21 8:57:00 EDT, Height/Length Dosing, 168.28, kg, 11/17/21 8:57:00 EDT, Weight Dosing Start Date: 12/24/21 Status: Ordered escitalopram 20 mg oral tablet 20 mg = 1 tab, Oral, Daily, # 90 tab, 3 Refill(s), Pharmacy: [facility], 176, cm, 12/28/22 11:06:00 EDT, Height/Length Dosing, 152, kg, 12/28/22 11:06:00 EDT, Weight Dosing Start Date: 03/03/23 Status: Ordered Gas-X Prevention 600 units oral capsule 600 units 1 cap, Oral, BID, PRN as needed for gas, # 60 cap, 1 Refill(s), [facility], 178, cm, 01/15/22 8:47:00 EDT, Height/Length Dosing, 160, kg, 01/15/22 8:47:00 EDT, Weight Dosing Start Date: 09/24/22 Status: Ordered Lexapro 10 mg oral tablet 10 mg = 1 tab, Oral, Daily, # 90 tab, 3 Refill(s), Pharmacy: [facility], 178, cm, 01/15/22 8:47:00 EDT, Height/Length Dosing, 160, kg, 01/15/22 8:47:00 EDT, Weight Dosing Start Date: 09/24/22 Status: Ordered multivitamin adult, oral tablet 1 tab, Oral, Daily, # 90 tab, 3 Refill(s), Pharmacy: [facility], 176, cm, 12/28/22 11:06:00 EDT, Height/Length Dosing, 152, kg, 12/28/22 11:06:00 EDT, Weight Dosing Start Date: 02/20/23 Status: Ordered pantoprazole 40 mg oral delayed release tablet 1 tab, Oral, BID, # 56 tab, 0 Refill(s), Pharmacy: [facility] [address], 176, cm, 12/28/22 11:06:00 EDT, Height/Length Dosing, 152, kg, 12/28/22 11:06:00 EDT, Weight Dosing Start Date: 02/18/23 Status: Ordered polyethylene glycol 3350 oral powder for reconstitution 17 g, Oral, Daily, DISSOLVE IN WATER OR JUICE., # 510 g, 2 Refill(s), Pharmacy: [facility] [address], 176, cm, 12/28/22 11:06:00 EDT, Height/Length Dosing, [...] BID, # 60 tab, 3 Refill(s), Pharmacy: [facility], 176, cm, 12/28/22 11:06:00 EDT, Height/Length Dosing, [...] List Name Date Strep A (ID NOW) 03/20/23 Most recent to oldest [Reference Range]: 1 Strep A -IDNOW [Not Detected] Not Detect ed (03/20/23 9:01 AM) Vital Signs Most recent to oldest [Reference Range]: 1 2 Temperature Temporal Artery [36-38 Deg C ] 36.7 Deg C (03/20/23 8:54 AM) Peripheral Pulse Rate [60-100 bpm] 50 bp m *LOW* (03/20/23 8:54 AM) Respiratory Rate [12-24 br/min] 18 br/mi n (03/20/23 8:54 AM) Blood Pressure [90-140/60-90 mmHg] 130/9 2mmHg (03/20/23 9:53 AM) 158/111mmHg *HI* (03/20/23 8:54 AM) Mean Arterial Pressure, Cuff [70-110 mmH g] 127 mmHg *>HHI* (03/20/23 8:54 AM) Weight Dosing 149.23 kg (03/20/23 8:58 AM) Weight Estimated 149.23 kg (03/20/23 8:54 AM) Height 176.000 cm (03/20/23 8:58 AM) Height/Length Estimated 176.000 cm (03/20/23 8:54 AM) Social History Social History Type Response Tobacco Former tobacco user Tobacco Use:. Sex Male Hospital Discharge Instructions Patient Education 03/20/2023 08:57:57 Pharyngitis Pharyngitis Pharyngitis is inflammation of the throat (pharynx). It is a very common cause of sore throat. Pharyngitis can be caused by a bacteria, but it is usually caused by a virus. Most cases of pharyngitis get better on their own without treatment. What are the causes? This condition may be caused by: ??? Infection by viruses (viral). Viral pharyngitis spreads easily from person to person (is contagious) through coughing, sneezing, and sharing of personal items or utensils such as cups, forks, spoons, and toothbrushes. ??? Infection by bacteria (bacterial). Bacterial pharyngitis may be spread by touching the nose or face after coming in contact with the bacteria, or through close contact, such as kissing. ??? Allergies. Allergies can cause buildup of mucus in the throat (post-nasal drip), leading to inflammation and irritation. Allergies can also cause blocked nasal passages, forcing breathing throughthe mouth, which dries and irritates the throat. What increases the risk? You are more likely to develop this condition if: ??? You are 5???24 years old. ??? You are exposed to crowded environments such as daycare, school, or dormitory living. ??? You live in a cold climate. ??? You have a weakened disease-fighting (immune) system. What are the signs or symptoms? Symptoms of this condition vary by the cause. Common symptoms of this condition include: ??? Sore throat. ??? Fatigue. ??? Low-grade fever. ??? Stuffy nose (nasal congestion) and cough. ??? Headache. Other symptoms may include: ??? Glands in the neck (lymph nodes) that are swollen. ??? Skin rashes. ??? Plaque-like film on the throat or tonsils. This is often a symptom of bacterial pharyngitis. ??? Vomiting. ??? Red, itchy eyes (conjunctivitis). ??? Loss of appetite. ??? Joint pain and muscle aches. ??? Enlarged tonsils. How is this diagnosed? This condition may be diagnosed based on your medical history and a physical exam. Your health careprovider will ask you questions about your illness and your symptoms. A swab of your throat may be done to check for bacteria (rapid strep test). Other lab tests may also be done, depending on the suspected cause, but these are rare. How is this treated? Many times, treatment is not needed for this condition. Pharyngitis usually gets better in 3???4 days without treatment. Bacterial pharyngitis may be treated with antibiotic medicines. Follow these instructions at home: Medicines ??? Take sqmy-czc-iydwryw and prescription medicines only as told by your health care provider. ??? If you were prescribed an antibiotic medicine, take it as told by your health care provider. Donot stop taking the antibiotic even if you start to feel better. ??? Use throat sprays to soothe your throat as told by your health care provider. ??? Children can get pharyngitis. Do not give your child aspirin because of the association with David's syndrome. Managing pain To help with pain, try: ??? Sipping warm liquids, such as broth, herbal tea, or warm water. ??? Eating or drinking cold or frozen liquids, such as frozen ice pops. ??? Gargling with a mixture of salt and water 3???4 times a day or as needed. To make salt water, completely dissolve ?1 tsp (3???6 g) of salt in 1 cup (237 mL) of warm water. ??? Sucking on hard candy or throat lozenges. ??? Putting a cool-mist humidifier in your bedroom at night to moisten the air. ??? Sitting in the bathroom with the door closed for 5???10 minutes while you run hot water in the shower. General instructions ??? Do not use any products that contain nicotine or tobacco. These products include cigarettes, chewing tobacco, and vaping devices, such as e-cigarettes. If you need help quitting, ask your health care provider. ??? Rest as told by your health care provider. ??? Drink enough fluid to keep your urine pale yellow. How is this prevented? To help prevent becoming infected or spreading infection: ??? Wash your hands often with soap and water for at least 20 seconds. If soap and water are not available, use hand stamp classifier. ??? Do not touch your eyes, nose, or mouth with unwashed hands, and wash hands after touching theseareas. ??? Do not share cups or eating utensils. ??? Avoid close contact with people who are sick. Contact a health care provider if: ??? You have large, tender lumps in your neck. ??? You have a rash. ??? You cough up green, yellow-brown, or bloody mucus. Get help right away if: ??? Your neck becomes stiff. ??? You drool or are unable to swallow liquids. ??? You cannot drink or take medicines without vomiting. ??? You have severe pain that does not go away, even after you take medicine. ??? You have trouble breathing, and it is not caused by a stuffy nose. ??? You have new pain and swelling in your joints such as the knees, ankles, wrists, or elbows. These symptoms may represent a serious problem that is an emergency. Do not wait to see if the symptoms will go away. Get medical help right away. Call your local emergency services (911 in the [place] Do not drive yourself to the hospital. Summary ??? Pharyngitis is redness, pain, and swelling (inflammation) of the throat (pharynx). ??? While pharyngitis can be caused by a bacteria, the most common causes are viral. ??? Most cases of pharyngitis get better on their own without treatment. ??? Bacterial pharyngitis is treated with antibiotic medicines. This information is not intended to replace advice given to you by your health care provider. Make sure you discuss any questions you have with your health care provider. Document Revised: 07/25/2021 Document Reviewed: 07/25/2021 [employer] Patient Education ?? 2022 [employer]. Follow Up Care 03/20/2023 08:54:38 With:Follow up with primary care provider Address: When:1 to 2 weeks Physician Emergency department Note * Hollie Faust MD: PERFORM Event Display: ED Note Physician Authored Date: [id number] DANIELITO WOODY :1985 Age:37 years Sex:Male Visit Date:03/20/2023 Primary Care Physician: Natan Sandoval MD Basic Information Time Seen: Hollie Faust MD / 03/20/2023 08:56 Chief Complaint My throat is hurting for weeks now, my tonsils looks like they are further down than normal. PT has not called PCP, Pt also states My throat has been real tight. RR unlabored, PWD, in NAD on arrival. ??I feel like my throat will collapse. No meds FOREST RANGER History Of Present Illness: sore throat worse this morning also bothering for months but states he feels like worse for a couple of weeks and worse yet this a.m..?? pt reports he is supposed to have an endoscopy this coming friday by Dr taylor.?? pt says his pcp saw him recently and said his throat looked fine.?? pt reports he worries about his throat he wonders how far down his throat the red areas in the back go down. pt seems anxious worries he could from his sore throat.?? known acid reflux, no known allergies/postnasal drip.?? pt took his meds this am he has tried tylenol in the past w/o relief.?? when asked ifhe had tried maalox he said he did not have that at home. no cough, no postnasal drip, no fever, nochills, no known exposure to strep throat.?? review of [place]is pt seen at pcp office 03/18 known globus pharyngeus they had discussed with him Review of Systems: see hpi for ros Physical Exam Vitals & Measurements T:??36.7?C ??(Temporal Artery)?? HR:??50??(Peripheral)?? RR:??18?? BP:??130/92?? SpO2:??97%?? HT:??176.000??cm?? WT:??149.23??kg??(Estimated)?? Pain Score:??6?? O2 Therapy:??Room air?? General: Alert and oriented, well nourished,?No??acute distress Eye: PER?Normal??conjunctiva,??No??scleral icterus HENT: Normocephalic,??nontraumatic??Normal hearing, slight erythema posterior pharynx Neck: Supple, non-tender,?No??JVD,?No??lymphadenopathy Lungs: Clear to auscultation,?Non-labored?? respiration Heart:?Normal?? rate,?Regular??rhythm,?No??murmur,?No??gallop,?No??edema Chest: wall excursion wnl no abnormal movements no obvious deformities Skin: Skin is warm, dry and pink,?No??rashes,?No??lesions Neurologic: Awake, alert and oriented X4 Psychiatric: Cooperative, appropriate mood and affect Medical Decision Making: For MDM please see under assessment and plan Procedure No Qualifying Data Assessment/Plan 1.??Pharyngitis??J02.9 I think patient's pharyngitis is multifactorial??I think patient's acid reflux is??playing a??pleitez factor discussed with patient??to remember??foods that will cause his acid reflux. ??Patient reports the Maalox did not seem to help him that he received here in the emergency department??he does statethat Tums sometimes helps when asked??discussed with him he should continue with Tums as needed.?? Patient anxious about??tissue in the back of his throat following down??discussed with him that this??will not happen.?? Patient is aware if he worsens he may [facility] the emergency [facility].?? Rapid strep is negative I think this is more related to patient's globus ph aryngeus??likely from acid reflux??rather??than a viral illness although could be early viral illness. Ordered: Discharge Patient, 03/20/23 9:57:00 EST, Home Independently, Constant Indicator ?? Patient Education Pharyngitis Follow Up With When Contact Information Follow up with primary care provider Within 1 to 2 weeks Additional Instructions: Medication Reconciliation Unchanged olkjd-Z-obelqbihfgyfk (Gas-X Prevention 600 units oral capsule)1 Capsules Oral (given by mouth) 2 times a day as needed as needed for gas. Refills: 1. ?? EPINEPHrine (EpiPen 2-Rex 0.3 mg injectable kit)0.3 Milligrams Intramuscular (in a muscle) once. Refills: 0. ?? escitalopram (escitalopram 20 mg oral tablet)1 tab Oral (given by mouth) every day. Refills: 3. ?? escitalopram (Lexapro 10 mg oral tablet)1 tab Oral (given by mouth) every day. Refills: 3. ?? multivitamin (multivitamin adult, oral tablet)1 tab Oral (given by mouth) every day. Refills: 3. ?? pantoprazole (pantoprazole 40 mg oral delayed release tablet)1 tab Oral (given by mouth) 2 times a day. Refills: 0. ?? polyethylene glycol 3350 (polyethylene glycol 3350 oral powder for reconstitution)17 Gram Oral (given by mouth) every day. DISSOLVE IN WATER OR JUICE.. Refills: 2. ?? QUEtiapine (SEROquel 100 mg oral tablet)1 tab Oral (given by mouth) 2 times a day. Refills: 3. ?? semaglutide (Rybelsus 14 mg [...] (09/08/2020)???MRI of brain (09/27/2002)???Eye surgery (05/12/1996)???Wrist surgery Medication Administration Given aluminum hydroxide/magnesium hydroxide/simethicone 200 mg-200 mg-20 mg/5 mL oral suspension, 30 mL,Oral Allergies BEE VENOM PROTEIN (HONEY BEE) INSECT VENOM penicillins Social History Alcohol Current, 1-2 times per week Electronic Cigarette/Vaping Electronic Cigarette Use: Former use, quit more than 90 days ago. Employment/School Employed Home/Environment Lives with Alone. Living situation: Home/Independent. Substance Use Past, Marijuana Tobacco Former tobacco user Tobacco Use:. Family History Healthy adult: Mother and Father. Lab Results Infectious Disease?? LATEST RESULTS?? HISTORICAL RESULTS?? Strep A -IDNOW?? 03/20/23 09:01?? Not Detected?? 12/28/22?? Not Detected? Electronically Signed on 03/20/23 10:00 AM Hollie Faust MD Emergency department Discharge instructions * Hollie Faust MD: PERFORM Event Display: ED Discharge Information Authored Date: [id number] DANIELITO WOODY :1985 Age:37 years Sex:Male Visit Date:03/20/2023 Primary Care Physician: Natan Sandoval MD Discharge Instructions We would like to thank you for allowing us to assist you with your healthcare needs. The following includes patient education materials and information regarding your injury/illness. Diagnosis from Today's Visit Pharyngitis Discharge Vitals Temperature??(Temporal Artery) 98.1 ??F (36.7 ??C) Heart Rate??(Peripheral) 50 Respiratory Rate?? 18 Blood Pressure?? 130/92?? Height?? 69.29 in (176.000 cm) Weight??(Estimated) 329.05 lb (149.23 kg) Allergies BEE VENOM PROTEIN (HONEY BEE) INSECT VENOM penicillins What to Do Next Instructions from Your Care Team Keep your appointment this coming week for endoscopy.?? If you worsen return to the emergency department??or see your primary care provider. You Need to Schedule the Following Appointments Follow Up with??Follow up with primary care provider When:??Within 1 to 2 weeks Upcoming Scheduled Appointments Friday 9:00 AM EST ?? Where: [facility] Main OR Status: Confirmed Friday 1:00 PM EST ?? With: Kami Jimenez MD Where: [facility] [address] [place] [address] Status: Confirmed You were treated [...] Much When Why Instructions Next Dose Unchanged prold-H-lhekiusmupihi (Gas-X Prevention 600units oral capsule) 1 Capsules [...] or other oral meds ?? Education Materials Pharyngitis Pharyngitis is inflammation of the throat (pharynx). It is a very common cause of sore throat. Pharyngitis can be caused by a bacteria, but it is usually caused by a virus. Most cases of pharyngitis get better on their own without treatment. What are the causes? This condition may be caused by: ? Infection by viruses (viral). Viral pharyngitis spreads easily from person to person (is contagious) through coughing, sneezing, and sharing of personal items or utensils such as cups, forks, spoons,and toothbrushes. ? Infection by bacteria (bacterial). Bacterial pharyngitis may be spread by touching the nose or faceafter coming in contact with the bacteria, or through close contact, such as kissing. ? Allergies. Allergies can cause buildup of mucus in the throat (post-nasal drip), leading to inflammation and irritation. Allergies can also cause blocked nasal passages, forcing breathing through themouth, which dries and irritates the throat. What increases the risk? You are more likely to develop this condition if: ? You are 5???24 years old. ? You are exposed to crowded environments such as daycare, school, or dormitory living. ? You live in a cold climate. ? You have a weakened disease-fighting (immune) system. What are the signs or symptoms? Symptoms of this condition vary by the cause. Common symptoms of this condition include: ? Sore throat. ? Fatigue. ? Low-grade fever. ? Stuffy nose (nasal congestion) and cough. ? Headache. Other symptoms may include: ? Glands in the neck (lymph nodes) that are swollen. ? Skin rashes. ? Plaque-like film on the throat or tonsils. This is often a symptom of bacterial pharyngitis. ? Vomiting. ? Red, itchy eyes (conjunctivitis). ? Loss of appetite. ? Joint pain and muscle aches. ? Enlarged tonsils. How is this diagnosed? This condition may be diagnosed based on your medical history and a physical exam. Your health careprovider will ask you questions about your illness and your symptoms. A swab of your throat may be done to check for bacteria (rapid strep test). Other lab tests may also be done, depending on the suspected cause, but these are rare. How is this treated? Many times, treatment is not needed for this condition. Pharyngitis usually gets better in 3???4 days without treatment. Bacterial pharyngitis may be treated with antibiotic medicines. Follow these instructions at home: Medicines ? Take lifs-xtc-yaslskg and prescription medicines only as told by your health care provider. ? If you were prescribed an antibiotic medicine, take it as told by your health care provider. Do notstop taking the antibiotic even if you start to feel better. ? Use throat sprays to soothe your throat as told by your health care provider. ? Children can get pharyngitis. Do not give your child aspirin because of the association with David'ssyndrome. Managing pain To help with pain, try: ? Sipping warm liquids, such as broth, herbal tea, or warm water. ? Eating or drinking cold or frozen liquids, such as frozen ice pops. ? Gargling with a mixture of salt and water 3???4 times a day or as needed. To make salt water, completely dissolve ?1 tsp (3???6 g) of salt in 1 cup (237 mL) of warm water. ? Sucking on hard candy or throat lozenges. ? Putting a cool-mist humidifier in your bedroom at night to moisten the air. ? Sitting in the bathroom with the door closed for 5???10 minutes while you run hot water in the shower. General instructions ? Do not use any products that contain nicotine or tobacco. These products include cigarettes, chewing tobacco, and vaping devices, such as e-cigarettes. If you need help quitting, ask your health careprovider. ? Rest as told by your health care provider. ? Drink enough fluid to keep your urine pale yellow. How is this prevented? To help prevent becoming infected or spreading infection: ? Wash your hands often with soap and water for at least 20 seconds. If soap and water are not available, use hand stamp classifier. ? Do not touch your eyes, nose, or mouth with unwashed hands, and wash hands after touching these areas. ? Do not share cups or eating utensils. ? Avoid close contact with people who are sick. Contact a health care provider if: ? You have large, tender lumps in your neck. ? You have a rash. ? You cough up green, yellow-brown, or bloody mucus. Get help right away if: ? Your neck becomes stiff. ? You drool or are unable to swallow liquids. ? You cannot drink or take medicines without vomiting. ? You have severe pain that does not go away, even after you take medicine. ? You have trouble breathing, and it is not caused by a stuffy nose. ? You have new pain and swelling in your joints such as the knees, ankles, wrists, or elbows. These symptoms may represent a serious problem that is an emergency. Do not wait to see if the symptoms will go away. Get medical help right away. Call your local emergency services (911 in the [place] Do not drive yourself to the hospital. Summary ? Pharyngitis is redness, pain, and swelling (inflammation) of the throat (pharynx). ? While pharyngitis can be caused by a bacteria, the most common causes are viral. ? Most cases of pharyngitis get better on their own without treatment. ? Bacterial pharyngitis is treated with antibiotic medicines. This information is not intended to replace advice given to you by your health care provider. Make sure you discuss any questions you have with your health care provider. Document Revised: 07/25/2021 Document Reviewed: 07/25/2021 [employer] Patient Education ?? 2022 [employer] Tests Performed Medications and Immunizations Administered Given aluminum hydroxide/magnesium hydroxide/simethicone 200 mg-200 mg-20 mg/5 mL oral suspension, 30 mL,Oral Lab Test Name Test Result Date/Time Jaki JEFFRIES Not Detected 03/20/2023 09:01 EST Patient/Rn Clinical Documentation Specialist Signature Patient Name:DANIELITO WOODY I have received this information and my questions have been answered. Patient/Rn Clinical Documentation Specialist Name: Patient/Rn Clinical Documentation Specialist Signature: Relationship to Patient: Witness Name/Signature: Date: Electronically Signed on: 03/20/2023 09:58 ESTSigned by:[facility] Patient Care team information Care Team Personnel Name: Natan Sandoval MD Position: Physician Member Role: Informed Provider Address: Address: [facility] [address] [place] [address]- [place] Name: Keisha Villagomez RN Position: Nurse Member Role: ED Nurse Name: Hollie Faust MD Position: Physician Member Role: Admitting Physician Address: Address: [address] [place] [address]- [place] Care Team Related Persons Name: JOSE WEBB
--- OUTSIDE RECORDS SUMMARY | 2023-05-20 20:39 | XMS_ITS | Continuity of Care Document ---
Author Name Unknown Organization [facility] Address [address] [place] [address] Care Team Providers Care Television Presenter Name Role Phone Natan Sandoval Primary Care Physician Encounter [facility] Date(s): 09/24/22 - 09/24/22 [facility] [address] [place] [address] Discharge Disposition: Home or Self Care Attending [...] Once, # 1 EA, 0 Refill(s), Pharmacy: [facility] #58, 175.28, cm, 11/17/21 8:57:00 EDT, Height/Length Dosing, 168.28, kg, 11/17/21 8:57:00 EDT, Weight Dosing Start Date: 12/24/21 Status: Ordered Gas-X Prevention 600 units oral capsule 600 units 1 cap, Oral, BID, PRN as needed for gas, # 60 cap, 1 Refill(s), Pharmacy: [facility] - [...] meds, # 90 tab, 3 Refill(s), Pharmacy: [facility], 178, cm, 01/15/22 8:47:00 EDT, Height/Length Dosing, 160, kg, 01/15/22 8:47:00 EDT, Weight... Start Date: 09/24/22 Status: Ordered SEROquel 100 mg oral tablet 100 mg = 1 tab, Oral, every evening, # 90 tab, 3 Refill(s), Pharmacy: [facility], 178, cm, 01/15/22 8:47:00 EDT, Height/Length [...] Member Role: Primary Care Physician Address: Address: [address] Care Team Related Persons Name: JOSE WEBB Address: Home
--- OUTSIDE RECORDS SUMMARY | 2023-05-20 20:39 | XMS_ITS | Continuity of Care Document ---
Author Name Unknown Organization [facility] Address [address] [place] [address] Care Team Providers Care Relations Coordinator Name Role Phone JaimeNatan Zenon Primary Care Physician Encounter [facility] Date(s): 05/16/22 - 05/16/22 [facility] [address] [place] [address] Discharge Disposition: Home or Self Care Attending Physician: Navarro Pradhan PA-C Admitting Physician: Navarro Pradhan PA-C Referring Physician: Navarro Armijo PA-C Allergies, Adverse Reactions, Alerts Substance Reaction [...] Once, # 1 EA, 0 Refill(s), Pharmacy: [facility] #58, 175.28, cm, 11/17/21 8:57:00 EDT, Height/Length [...] morning, # 30 tab, 0 Refill(s), Pharmacy: [facility] #58, 178, cm, 01/15/22 8:47:00 EDT, Height/Length Dosing, 160, kg, 01/15/22 8:47:00 EDT, Weight Dosing Start Date: 02/07/22 Status: Ordered omeprazole 20 mg oral delayed release capsule 20 mg = 1 cap, Oral, Daily, # 90 cap, 3 Refill(s), [place] [facility], cm, 01/15/22 8:47:00 EDT, Height/Length Dosing, [...] Personnel Name: Natan Sandoval MD Address: Address: [address]
--- OUTSIDE RECORDS SUMMARY | 2023-05-20 20:39 | XMS_ITS | Continuity of Care Document ---
Author Name Unknown Organization [facility] Address [address] [place] [address] Care Team Providers Care Payment Collector Name Role Phone Natan Sandoval Primary Care Physician Encounter [facility] Date(s): 02/28/22 - 02/28/22 [facility] [address] [place] [address] Discharge Disposition: Home or Self Care Attending Physician: Kami Jimenez MD Admitting Physician: Kami Jimenez MD Referring Physician: Kami Jimenez MD Allergies, Adverse Reactions, Alerts Substance Reaction Severity Status BEE VENOM PROTEIN (HONEY BEE) Unknown Active INSECT VENOM Unknown Active penicillins Unknown Active Assessment and Plan Future Appointments Immunizations Given and Recorded Vaccine Date Status Refusal Reason influenza virus vaccine, live 1 03/01/21 Recorded influenza virus vaccine, live 05/11/20 Recorded SARS-CoV-2 (COVID-19) mRNA-1273 vaccine 09/05/20 R ecorded SARS-CoV-2 (COVID-19) mRNA-1273 vaccine 08/08/20 R ecorded tetanus/diphth/pertuss (Tdap) adult/adol 08/21/11 Recorded hepatitis B adult vaccine 05/10/05 Recorded hepatitis B adult vaccine 10/29/04 Recorded hepatitis B adult vaccine 09/18/04 Recorded hepatitis B pediatric vaccine 05/09/05 Recorded hepatitis B pediatric vaccine 10/16/04 Recorded hepatitis B pediatric vaccine 02/08/99 Recorded hepatitis B pediatric vaccine 09/02/97 Recorded tetanus-diphth toxoids (Td) adult/adol 02/11/04 Re corded 1Result Comment: cleanse area well Medications doxycycline hyclate 100 mg oral capsule 100 mg = 1 cap, Oral, BID, # 20 cap, 0 Refill(s), Pharmacy: [facility] #58, 175.28, cm, 11/17/21 8:57:00 EDT, Height/Length Dosing, 168.28, kg, 11/17/21 8:57:00 EDT, Weight Dosing Start Date: 11/22/21 Stop Date: 12/02/21 Status: Ordered EpiPen 2-Rex See Instructions, 0 Refill(s) Start Date: 10/23/21 Status: Ordered EpiPen 2-Rex 0.3 mg injectable kit 0.3 mg =, IM, Once, # 1 EA, 0 Refill(s), Pharmacy: [facility] #58, 175.28, cm, 11/17/21 8:57:00 EDT, Height/Length [...] morning, # 30 tab, 0 Refill(s), Pharmacy: [facility] #58, 178, cm, 01/15/22 8:47:00 EDT, Height/Length Dosing, 160, kg, 01/15/22 8:47:00 EDT, Weight Dosing Start Date: 02/07/22 Status: Ordered omeprazole 20 mg oral delayed release capsule 20 mg = 1 cap, Oral, Daily, for 14 days, 0 Refill(s) Start Date: 10/23/21 Status: Ordered SEROquel 100 mg oral tablet 100 mg = 1 tab, Oral, every evening, 0 Refill(s) Start Date: 10/23/21 Status: Ordered traMADol 50 mg oral tablet 25 mg = 0.5 tab, Oral, every 6 hr, PRN other (see comment), as needed, 0 Refill(s) Start Date: 10/23/21 Status: Ordered [...] Personnel Name: Natan Sandoval MD Address: Address: [address]
--- OUTSIDE RECORDS SUMMARY | 2023-05-20 20:39 | XMS_ITS | Continuity of Care Document ---
Author Name Unknown Organization [facility] Address [address] [place] [address] Care Team Providers Care Trench Pipe Layer Name Role Phone Natan Sandoval Primary Care Physician [phone] Encounter [facility] Date(s): 02/21/22 - 02/21/22 [facility] [address] [place] [address] Encounter Diagnosis Left ureteral calculus(Discharge Diagnosis) - 02/21/22 Morbid obesity with BMI of 50.0-59.9, adult(Discharge Diagnosis) - 02/21/22 Body mass index [BMI] 50.0-59.9, adult(Discharge Diagnosis) - 02/21/22 Discharge Disposition: Home or Self Care Attending Physician: Carlos Eduardo Walker MD Admitting Physician: Carlos Eduardo Walker MD Referring Physician: Carlos Eduardo Walker MD Allergies, Adverse Reactions, Alerts Substance Reaction Severity Status BEE VENOM PROTEIN (HONEY BEE) Unknown Active INSECT VENOM Unknown Active penicillins Unknown Active Assessment and Plan Future Appointments Functional Status 02/21/22 Anti-Embolism Device Activity: Applied Anti-Embolism Site Condition: No complic ations 02/21/22 Recent Travel History No recent travel Other [...] BID, # 20 cap, 0 Refill(s), Pharmacy: [facility] #58, 175.28, cm, 11/17/21 8:57:00 EDT, Height/Length Dosing, 168.28, kg, 11/17/21 8:57:00 EDT, Weight Dosing Start Date: 11/22/21 Stop Date: 12/02/21 Status: Ordered EpiPen 2-Rex See Instructions, 0 Refill(s) Start Date: 10/23/21 Status: Ordered EpiPen 2-Rex 0.3 mg injectable kit 0.3 mg =, IM, Once, # 1 EA, 0 Refill(s), Pharmacy: [facility] #58, 175.28, cm, 11/17/21 8:57:00 EDT, Height/Length [...] morning, # 30 tab, 0 Refill(s), Pharmacy: [facility] #58, 178, cm, 01/15/22 8:47:00 EDT, Height/Length [...] Active Major depressive disorder Confirmed 12/01/20 Active Narcolepsy Confirmed Active Obesity Confirmed Active Obstructive sleep apnea syndrome Confirmed Active Dermatophytosis of the trunk Confirmed Active Umbilical hernia Confirmed Active Ureterolithiasis Confirmed Active Vitamin D deficiency Confirmed 12/01/20 Active Procedures Procedure Date Related Diagnosis Body Site Status Hernia repair 02/21/21 Completed EGD - Esophagogastroduodenoscopy 1 01/11/21 Completed Barium swallow 09/07/20 Completed MRI of brain 09/26/02 Completed Eye surgery 2 05/11/96 Completed Wrist surgery 3 Completed 1Gerd, esophagitis, gastritis, small hiatal hernia 2repair of left orbit after trauma 3ORIF Left distal radius Results Laboratory List Name Date Glucose POCT 02/21/22 Most recent to oldest [Reference Range]: 1 Glucose POC [74-106 mg/dL] 114 mg/dL *HI* (02/21/22 8:39 AM) Vital Signs Most recent to oldest [Reference Range]: 1 2 3 Temperature Oral [35.8-37.3 Deg C] 36.5 Deg C (02/21/22 8:44 AM) Temperature Temporal Artery [36-38 Deg C] 36.3 Deg C (02/21/22 4:26 PM) 36.3 Deg C (02/21/22 12:10 PM) 36.0 Deg C (02/21/22 11:55 AM) Temperature Temporal Artery (DegF) [97.3-100 Deg F] 97.34 Deg F (02/21/22 4:26 PM) 96.8 Deg F *LOW* (02/21/22 11:55 AM) Peripheral Pulse Rate [60-100 bpm] 90 bpm (02/21/22 5:00 PM) 83 bpm (02/21/22 4:26 PM) 59 bpm *LOW* (02/21/22 4:00 PM) Heart Rate Monitored [60-100 bpm] 79 bpm (02/21/22 5:00 PM) 83 bpm (02/21/22 4:26 PM) 60 bpm (02/21/22 4:00 PM) Respiratory Rate [12-24 br/min] 14 br/min (02/21/22 5:00 PM) 18 br/min (02/21/22 4:26 PM) 23 br/min (02/21/22 4:00 PM) Blood Pressure [90-140/60-90 mmHg] 115/79mmHg (02/21/22 4:00 PM) 123/88mmHg (02/21/22 3:31 PM) 134/89mmHg (02/21/22 3:13 PM) Mean Arterial Pressure, Cuff [65-140 mmHg] 91 mmHg (02/21/22 4:00 PM) 100 mmHg (02/21/22 3:31 PM) 104 mmHg (02/21/22 3:13 PM) Blood Pressure Location Right arm (02/21/22 8:44 AM) Blood Pressure Method Automatic (02/21/22 8:44 AM) Weight 168.4 kg (02/21/22 8:44 AM) Weight Estimated 160.00 kg (02/14/22 10:55 AM) Height 178 cm (02/21/22 8:44 AM) Social History Social History Type Response Tobacco Former tobacco user Tobacco Use:. Sex Male Hospital Discharge Instructions Follow Up Care 02/12/2022 08:58:31 With:Carlos Eduardo Walker MD Address: [facility] [address] [place] [id number] When:1 to 2 weeks Comments:10-14 days; no stent Patient Care team information Personnel Name: Natan Sandoval MD Address: Address: [address] [address]- [place]
--- OUTSIDE RECORDS SUMMARY | 2023-05-20 20:40 | XMS_ITS | Continuity of Care Document ---
Author Name Unknown Organization [facility] Address [address] [place] [address] Care Team Providers Care Fiberglass Model Maker Name Role Phone Outside, Provider Primary Care Physician Encounter [id number] Date(s): 03/24/23 - 03/24/23 [facility] [address] [place] [address] Encounter Diagnosis Gastro-esophageal reflux disease without esophagitis(Final) - Diaphragmatic hernia without obstruction or gangrene(Final) - Dysphagia, unspecified(Final) - Discharge Disposition: Home or Self Care Attending Physician: Jeffery Palomino MD Admitting Physician: Jeffery Palomino MD Referring Physician: Jeffery Palomino MD Allergies, Adverse Reactions, Alerts Substance Reaction Severity Status BEE VENOM PROTEIN (HONEY BEE) Unknown Active INSECT VENOM Unknown Active penicillins Unknown Active Assessment and Plan Future Appointments Diagnostic Tests Pending * Surgical Pathology [facility] 03/24/23 Future Scheduled Tests Laboratory* Semen Analysis Post Vasectomy 06/25/22 Radiology* XR Ankle Complete 3+ Views Left 12/16/22 * XR Ankle Complete 3+ Views Left 12/16/22 Functional Status 03/24/23 ADLs Independent 03/20/23 Other exposure to Infectious Disease Non e [...] Once, # 1 EA, 0 Refill(s), Pharmacy: [facility] #58, 175.28, cm, 11/17/21 8:57:00 EDT, Height/Length Dosing, 168.28, kg, 11/17/21 8:57:00 EDT, Weight Dosing Start Date: 12/24/21 Status: Ordered escitalopram 20 mg oral tablet 20 mg = 1 tab, Oral, Daily, # 90 tab, 3 Refill(s), [place] [facility] [place], cm, 12/28/22 11:06:00 EDT, Height/Length Dosing, 152, kg, 12/28/22 11:06:00 EDT, Weight Dosing Start Date: 03/03/23 Status: Ordered Gas-X Prevention 600 units oral capsule 600 units 1 cap, Oral, BID, PRN as needed for gas, # 60 cap, 1 Refill(s), [place] [facility], [place], cm, 01/15/22 8:47:00 EDT, Height/Length Dosing, 160, kg, 01/15/22 8:47:00 EDT, Weight Dosing Start Date: 09/24/22 Status: Ordered Lexapro 10 mg oral tablet 10 mg = 1 tab, Oral, Daily, # 90 tab, 3 Refill(s), [place] [facility] [place], [place], cm, 01/15/22 8:47:00 EDT, Height/Length Dosing, 160, kg, 01/15/22 8:47:00 EDT, Weight Dosing Start Date: 09/24/22 Status: Ordered multivitamin adult, oral tablet 1 tab, Oral, Daily, # 90 tab, 3 Refill(s), [facility], [facility], cm, 12/28/22 11:06:00 EDT, Height/Length Dosing, 152, kg, 12/28/22 11:06:00 EDT, Weight Dosing Start Date: 02/20/23 Status: Ordered pantoprazole 40 mg oral delayed release tablet 1 tab, Oral, BID, # 56 tab, 0 Refill(s), Pharmacy: [facility] [address], 176, cm, 12/28/22 11:06:00 EDT, Height/Length Dosing, 152, kg, 12/28/22 11:06:00 EDT, Weight Dosing Start Date: 02/18/23 Status: Ordered polyethylene glycol 3350 oral powder for reconstitution 17 g, Oral, Daily, DISSOLVE IN WATER OR JUICE., # 510 g, 2 Refill(s), Pharmacy: [facility] [address], 176, cm, 12/28/22 11:06:00 EDT, Height/Length Dosing, 152, kg, 12/28/22 11:06:00 EDT, Weight Dosing Start Date: 02/18/23 Status: Ordered Rybelsus 14 mg oral tablet 14 mg = 1 tab, Oral, Daily, take at least 30 minutes before first food, beverage, or other oral meds, # 90 tab, 3 Refill(s), [facility], [facility], cm, 01/15/22 8:47:00 EDT, Height/Length Dosing, 160, kg, 01/15/22 8:47:00 EDT, Weight Dosing Start Date: 09/24/22 Status: Ordered SEROquel 100 mg oral tablet 100 mg = 1 tab, Oral, BID, # 60 tab, 3 Refill(s), [facility], [facility], cm, 12/28/22 11:06:00 EDT, Height/Length Dosing, [...] oldest [Reference Range]: 1 2 3 Temperature Temporal Artery [36-38 Deg C] 36.1 Deg C (03/24/23 10:50 AM) 36.1 Deg C (03/24/23 9:50 AM) 35.8 Deg C *LOW* (03/24/23 7:57 AM) Temperature Temporal Artery (DegF) [97.3-100 Deg F] 96.98 Deg F *LOW* (03/24/23 10:50 AM) 96.98 Deg F *LOW* (03/24/23 9:50 AM) Peripheral Pulse Rate [60-100 bpm] 57 bpm *LOW* (03/24/23 10:50 AM) 55 bpm *LOW* (03/24/23 10:35 AM) 60 bpm (03/24/23 10:20 AM) Heart Rate Monitored [60-100 bpm] 54 bpm *LOW* (03/24/23 10:50 AM) 56 bpm *LOW* (03/24/23 10:35 AM) 60 bpm (03/24/23 10:20 AM) Respiratory Rate [12-24 br/min] 20 br/min (03/24/23 10:50 AM) 15 br/min (03/24/23 10:35 AM) 15 br/min (03/24/23 10:20 AM) Blood Pressure [90-140/60-90 mmHg] 125/79mmHg (03/24/23 10:50 AM) 107/84mmHg (03/24/23 10:35 AM) 113/66mmHg (03/24/23 10:20 AM) Mean Arterial Pressure, Cuff [70-110 mmHg] 94 mmHg (03/24/23 10:50 AM) 92 mmHg (03/24/23 10:35 AM) 82 mmHg (03/24/23 10:20 AM) Weight 145.24 kg (03/24/23 7:57 AM) Weight Dosing 145.240 kg (03/24/23 7:57 AM) Weight Estimated 149.23 kg (03/20/23 1:46 PM) Height 176 cm (03/24/23 7:57 AM) Body Mass Index 46.89 kg/m2 (03/24/23 7:57 AM) Social History Social History Type Response Tobacco Former tobacco user Tobacco Use:. Sex Male Hospital Discharge Instructions Patient Education 03/24/2023 09:29:44 ss UPPER ENDOSCOPY OR GASTROSCOPY (CUSTOM) UPPER ENDOSCOPY OR GASTROSCOPY FOLLOWING DAY: ??? Return to full activity, including work. DIET: Eat and drink normally, unless instructed otherwise. TREATMENT FOR COMMON AFTER EFFECTS: Sore throat: ??? Treat with throat lozenges; gargle with warm salt water. Mild abdominal pain and bloating: ??? Rest and take liquids. SYMPTOMS TO WATCH FOR AND REPORT TO YOUR PHYSICIAN: 1. Chills or fever occurring within 24 hours after procedure. 2. Pain in chest. 3. SEVERE abdominal pain or bloating. Do not attempt to drive a vehicle or operate power equipment of any kind for at least 24 hours after discharge from the hospital. Do not consume alcoholic beverages or other mood-altering drugs on the day of surgery. Mild irritation at needle site: a. Apply warm, moist pack to area for 20 minutes four times a day for 2-3 days. b. Call physician if persistent redness and/or drainage at needle site. Doctor:claudia Diagnosis: hiatal hernia Follow up appointment: as neede In the event of any problems after surgery, do not hesitate to contact your doctor, [facility] , or the Emergency Room at [phone]. Discharge instructions * Radha Hawkins: PERFORM Event Display: Discharge Instructions Authored Date: [id number] DANIELITO WOODY :1985 Age:37 years Sex:Male Visit Date:03/24/2023 Primary Care Physician: Natan Sandoval MD Hospital Discharge Instructions We would like to thank you for allowing us to assist you with your healthcare needs. The following includes patient education materials and information regarding your injury/illness. Your Next Steps Scheduled Future Appointments Friday 1:00 PM EST ?? With: Kami Jimenez MD Where: [facility] [address] [place] [address] [place] [id number] Status: Confirmed Your Summary Your Care Team Admitting Physician - Jeffery Palomino MD Attending Physician - Jeffery Palomino MD Primary Care Physician - Natan Sandoval MD Referring Physician - Jeffery Palomino MD Tests Performed/Pending Surgical Pathology [facility]?-- Results Pending -- Education Materials UPPER ENDOSCOPY OR GASTROSCOPY FOLLOWING DAY: ??? Return to full activity, including work. DIET: Eat and drink normally, unless instructed otherwise. TREATMENT FOR COMMON AFTER EFFECTS: Sore throat: ??? Treat with throat lozenges; gargle with warm salt water. Mild abdominal pain and bloating: ??? Rest and take liquids. SYMPTOMS TO WATCH FOR AND REPORT TO YOUR PHYSICIAN: 1. Chills or fever occurring within 24 hours after procedure. 2. Pain in chest. 3. SEVERE abdominal pain or bloating. Do not attempt to drive a vehicle or operate power equipment of any kind for at least 24 hours after discharge from the hospital. Do not consume alcoholic beverages or other mood-altering drugs on the day of surgery. Mild irritation at needle site: a. Apply warm, moist pack to area for 20 minutes four times a day for 2-3 days. b. Call physician if persistent redness and/or drainage at needle site. ? Doctor:claudia Diagnosis: hiatal hernia Follow up appointment: as neede ? In the event of any problems after surgery, do not hesitate to contact your doctor, [facility] , or the Emergency Room at [phone]. Patient/Urban Design Consultant Signature Patient Name:DANIELITO WOODY I have received this information and my questions have been answered. Patient/Urban Design Consultant Name: Patient/Urban Design Consultant Signature: Relationship to Patient: Witness Name/Signature: Date: Electronically Signed on: 03/24/2023 10:32 ESTSigned by:IRENE History and physical note * Jeffery Palomino MD: PERFORM Event Display: History and Physical Authored Date: [id number] DANIELITO WOODY :1985 Age:37 years Sex:Male Visit Date:03/24/2023 Primary Care Physician: Natan Sandoval MD H&P??reviewed from 03/11/2023 (see below). Pt examined,??no significant changes to medical history. Proceed as planned.? Jeffery Palomino MD 03/24/2023 ? History of Present Illness Patient??with PMH??including??obesity, ARON, tobacco use, and GERD presents for further evaluation and treatment of worsened upper GI symptoms. XR Barium swallow study (11/08/22) results revealed findings consistent with spontaneous gastroesophageal reflux. He was referred to our office by Lopez Cisneros for EGD consultation. ?? Heartburn:??yes Regurgitation:no Dysphagia:yes?? Globus sensation:yes Epigastric pain:yes Voice changes:yes Cough:yes Postprandial shortness of breath/chest pain:no Prescribed PPI/H2 kristan:yes??pantoprazole OTC antacids:no Melena/iron deficiency anemia:no Nausea/emesis:no Diarrhea/constipation:no ?? Positives include worsened belching, occasional dyspepsia, and healthy weight loss. ?? PSH notable??for laparoscopic repair??of??hernia of anterior abdominal wall with prothesis on 02/22/21 (Dr. Palomino) and recent??recurrent ventral hernia repair surgery (completed at [facility]) which gradual healing of superficial irritation and no concerns. His last EGD was completed on??01/12/21 (Dr. Palomino) with findings notable for esophagitis, gastritis, and a small hiatal hernia. Review of Systems A complete 12 point ROS was obtained and negative except for those mentioned in the HPI.?? Physical Exam General: NAD, A+O x4 ?? Pulm: Non-labored breathing pattern ?? Cardio: RRR ?? Abdominal: Soft, NT, ND Assessment/Plan Dysphagia??26220 ?? Gastroesophageal reflux disease??[id number] ?? Hiatal hernia??9218 ?? 37 yo M with PMH??including??obesity, ARON, tobacco use, and GERD presents for further evaluation and treatment of worsened upper GI symptoms including excessive belching and occasional dyspepsia. He is s/p recent recurrent ventral hernia repair surgery completed at [facility] with gradual healing and no evidence of infection.? His last EGD was completed on??01/12/21 (Dr. Palomino) with findings notable for esophagitis, gastritis, and a small hiatal hernia. XR Barium swallow study (11/08/22) results revealed findings consistent with spontaneous gastroesophageal reflux. Plan to proceed with scheduling Danielito for his EGD for further evaluation.??Encouraged??healthy weight loss. ?? Risk, benefits and alternatives to the procedure were discussed with the patient in detail. Risk, including but not limited to, bleeding, infection, perforation, missed lesions, need to reoperate, failure to resolve symptoms and pain were discussed with the patient who understood these risks and requested to proceed as planned.? Answered all questions. Patient understood and agreed to this plan. I have reviewed the EMR, including records from PCP, specialists along with review of imaging/diagnostics, which were discussed with the patient where applicable to current presentation. ?? Note was created with the assistance of a remote scribe,??Bennett Kumar Electronically Signed on 03/24/23 09:28 AM Jeffery Palomino MD Patient Care team information Care Team Personnel Name: Natan Sandoval MD Position: Physician Member Role: Informed Provider Address: Address: [address] [address]- [place] Name: Outside, Provider Position: No Access Member Role: Primary Care Physician Care Team Related Persons Name: JOSE WEBB
--- OUTSIDE RECORDS SUMMARY | 2023-05-20 20:40 | XMS_ITS | Continuity of Care Document ---
Author Name Unknown Organization [facility] f or Sleep Disorders Address [address] [place] [address] Care Team Providers Care Commercial Census Taker Name Role Phone Natan Sandoval Primary Care Physician Encounter [facility] [id number] Date(s): 07/23/22 - 07/23/22 [facility] [address] [place] [address] Encounter Diagnosis Obstructive sleep apnea syndrome(Discharge Diagnosis) - 07/23/22 Elevated blood pressure reading(Discharge Diagnosis) - 07/23/22 Discharge Disposition: Home or Self Care Attending Physician: Kami Jimenez MD Allergies, Adverse Reactions, Alerts Substance Reaction Severity Status BEE VENOM PROTEIN (HONEY BEE) Unknown Active INSECT VENOM Unknown Active penicillins Unknown Active Assessment and Plan Future Appointments Future Scheduled Tests Laboratory* Semen Analysis Post Vasectomy 06/25/22 Functional Status 07/23/22 Other exposure to Infectious Disease Non e [...] Once, # 1 EA, 0 Refill(s), Pharmacy: [facility], 175.28, cm, 11/17/21 8:57:00 EDT, Height/Length Dosing, 168.28, kg, 11/17/21 8:57:00 EDT, Weight Dosing Start Date: 12/24/21 Status: Ordered Gas-X Prevention 600 units oral capsule 600 units 1 cap, Oral, BID, PRN as needed for gas, # 20 cap, 0 Refill(s), Pharmacy: [facility], 178, cm, 01/15/22 8:47:00 EDT, Height/Length Dosing, 160, kg, 01/15/22 8:47:00 EDT, Weight Dosing Start Date: 06/25/22 Status: Ordered ibuprofen 600 mg oral tablet [...] morning, # 30 tab, 0 Refill(s), Pharmacy: [facility], 178, cm, 01/15/22 8:47:00 EDT, Height/Length Dosing, 160, kg, 01/15/22 8:47:00 EDT, Weight Dosing Start Date: 02/07/22 Status: Ordered pantoprazole 20 mg oral delayed release tablet 1 tab, Oral, Daily, # 28 tab, 0 Refill(s), Pharmacy: [id number], 178, cm, 01/15/22 8:47:00 EDT, Height/Length Dosing, 160, kg, 01/15/22 8:47:00 EDT, Weight Dosing Start Date: 07/09/22 Status: Ordered Rybelsus 7 mg oral tablet 7 mg = 1 tab, Oral, Daily, take at least 30 minutes before first food, beverage, or other oral meds, # 30 tab, 0 Refill(s), Pharmacy: [facility], 178, cm, 01/15/22 8:47:00 EDT, Height/Length Dosing, 160, kg, 01/15/22 8:47:00 EDT, Weight... Start Date: 06/25/22 Status: Ordered SEROquel 100 mg oral tablet [...] Range]: 1 Peripheral Pulse Rate [60-100 bpm] 97 bp m (07/23/22 1:33 PM) Blood Pressure [90-140/60-90 mmHg] 156/8 9mmHg *HI* (07/23/22 1:33 PM) Weight 158.30 kg (07/23/22 1:33 PM) Weight Measured (lbs) 348.991 lb (07/23/22 1:33 PM) Height 176 cm (07/23/22 1:33 PM) Height/Length Measured (inches) 69.29 in ch (07/23/22 1:33 PM) BSA Measured 2.78 m2 (07/23/22 1:33 PM) Body Mass Index 51.1 kg/m2 (07/23/22 1:33 PM) Social History Social History Type Response Tobacco Former tobacco user Tobacco Use:. Sex Male Progress note * Petey Garcia: PERFORM Event Display: Progress Note - Physician Authored Date: [id number] Physician Outpatient Note * Kami Jimenez MD: PERFORM, MODIFY Event Display: Office Clinic Note Physician Authored Date: [id number] DANIELITO WOODY :1985 Age:37 years Sex:Male Visit Date:07/23/2022 Primary Care Physician: Natan Sandoval MD History of Present Illness BIPAP FACE TO FACE - Pt has been having issues with water spraying/leaking out of his mask. A piece of his cushion hascome off his mask. ?? - Pt reports he has been struggling with his BP lately. He does not take any medication for HTN. Note it is high today. ?? - He is delphine to see his PMD Dr. Sandoval on 07/30/22. Review of Systems A 10-point REVIEW OF SYSTEM was obtained and reviewed, includes CONSTITUTIONAL, EYES, NOSE, THROAT,RESPIRATORY, HEART, GASTROINTESTINAL, UROLOGIC, MUSCULOSKELETAL, PSYCHIATRY, SKIN systems. Pertinent symptoms are discussed in history, otherwise negative. Physical Exam Vitals & Measurements HR:??97??(Peripheral)?? BP:??156/89?? SpO2:??96%?? HT:??176??cm?? WT:??158.30??kg?? BMI:??51.1?? BSA:??2.78?? General well appearing??statedage, no acute distress,??obesebuild HEENT: atraumatic skull, anicteric RESPIRATORY: quiet respiration, able to speak in full sentences without dyspnea, no accessory muscle use, SKIN: no facial skin rash, no facial skin lesions PSYCHIATRIC: well groomed, fluent speech, good insight, linear thought process, good eye contact,balanced NEUROLOGIC: alert, oriented, symmetric facial expression Assessment/Plan 1.??Obstructive sleep apnea syndrome??G47.33 2.??Elevated blood pressure reading??R03.0 I provided greater than??40??minutes in the care of this patient including chart review and documentation, more than half the time was spent in exre-sg-gcoc counseling. ?? 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 ?? Comorbidities??include: ?Obstructive Sleep Apnea, ??Anxiety, ADHD, Umbilical hernia, developmental delay. ? Clinical Data Reviewed:?? Dyke Sleepiness Scale ESS - Dyke Sleepiness Scale Total: 8 (07/23/22) ESS - Dyke Sleepiness Scale Total: 6 (06/11/22) ESS - Dyke Sleepiness Scale Total: 15 (02/26/22) ? Machine Download Data:??ResMED??Aircurve 10 VAuto?? PAP Settings: ??Auto BIPAP?IMAX 25 ANA 15 PS 7??CmH2O Date Range: ?06/22/22 - 07/21/22 Days with Usage >=4 hours: ??97% Avg Usage per Day Used: ??6hr 19min Mean/Median Pressure: ?22.0/15.1 90th-tile/95th-tile Pressure: ?22.6/15.6 Median-90th%tile Leak?80.3/104.0 Avg Treatment ??AHI: ??12.2/hr ?? Sleep Clinical Timeline:? He was seen in sleep clinic for sleep consultation by Dr Lim??at the kind request of Ruthy Cota M.D. on 05/23/14 for ESS of 21 and witnessed apneas. PSG was ordered at [facility]. ?? Diagnostic PSG on ??06/20/14, [...] start auto cpap 8 to 18cm via Crossbar. ?? 09/12/14 Titration Sleep??Study (wt 287lbs, BMI 41.5) CPAP 5 to 16 tested BIPAP 17/13 to /17 tested Best pressures: CPAP 15 or Bipap [...] 19 Ana 9 PS 4cm. ?? 11/13/2014: [facility] Follow up, ??Showed poor compliance on CPAP, only usage at 30 percent. Treatment AHI is excellent at 1.6 hr. Pt to work on increasing compliance. ?? 01/09/2015: [facility] Follow up, patient improved compliance to 77 percent. Reports reduction of daytime sleepiness. AHI 1.2/hr. At that the time he was on autocpap 8 to 18cm. ?? 04/22/2020: Transitioned to Geovanna Ravi CRYSTAL MACHINING COORDINATOR??at [facility]Sleep Clinic. Phone visit, pt was off cpap because of device being broken. New device ordered. Unclear of setting. ?? 06/2020: visit with Geovanna at [facility], titration study suggested. Unclear if this [...] without airflow limitation on 20/15cm, but BIPAP 22/[id number] appeared to keep SpO2 in 89 to [...] 25 ana 15 ps 7cm sent to [facility]. ?? 06/11/2022: Cont current BiPAP pressures.??Pt note benefit in feeling alert,??more energized at work and sleeping well with BiPAP. However it does not appear he met compliance so instructed him towork aggressively on that. He also had mask [...] AirTouch or AirFit??F20 Medium, order sent to [facility]. Pt having rain out issue with his machine, so extensive machine education, mask hygiene,??and maintenance discussion was had today. Pt given links to??IsoPlex[employer] videos to assist him at home with machine use and care instructions. Reports he feels more energized with BiPAP. ? Current??Mask:??Airfit F20 Medium FFM DME: [facility] ?? Today's Assessment and Plan: see 07/23/22 entry above. Download data reviewed and discussed with the patient. Great improvement in his compliance. Large air leak began around 07/04, likely when his mask broken. Exam of mask shows foam liner with piece broken on top of mask. Pt has an elevated blood pressure reading in office today, 156/89. Pt reports he has been having difficulty with high blood pressure recently and is not taking any medications for HTN. Given how consistently he has been using BiPAP, likely not related to untreated ARON. Pt states he is delphine to see his PMD Dr. Sandoval on the 30 of July and advised he should f/u with his PCP for further evaluation and treatment. Pt reports he was advised to lose weight in order to qualify for hernia repair surgery. ? Follow up: 3 months or sooner if needed. ?? Remote Scribed by??Jose Luis Moore Referral Orders Referral Management, Medical Service: Other, Reason: Pt has met compliance with his auto BIPAP machine, send copy of OV note to [facility] SMILEY, Start: 07/23/22 Problem List/Past Medical History Ongoing Allergic reaction [...] mg injectable kit, 0.3 mg, IM, Once Gas-X Prevention 600 units oral capsule, 600 units= 1 cap, Oral, BID, PRN ibuprofen 600 mg oral tablet, See Instructions Lexapro 10 mg oral tablet, 10 mg= 1 tab, Oral, Daily metFORMIN 500 mg oral tablet, 500 mg= 1 tab, Daily modafinil 100 mg oral tablet, 100 mg= 1 tab, Oral, every morning pantoprazole 20 mg oral delayed release tablet, 1 tab, Oral, Daily Rybelsus 7 mg oral tablet, 7 mg= 1 tab, Oral, Daily SEROquel 100 [...] virus vaccine, inactivated 04/30/2022 Given SARS-CoV-2 mRNA (kamini 12y+) bival 04/30/2022 Given influenza virus vaccine, [...] pediatric vaccine 09/02/1997 Recorded Electronically Signed on 07/23/22 09:25 PM Kami Jimenez MD Reviewed by: Kami Jimenez MD Patient Care team information Care Team Personnel Name: Natan Sandoval MD Position: Physician Member Role: Primary Care Physician Address: Address: [address] [address]- Care Team Related Persons Name: JOSE WEBB Address: Home
--- OUTSIDE RECORDS SUMMARY | 2023-05-20 20:40 | XMS_ITS | Continuity of Care Document ---
Author Name Unknown Organization [facility] Address [address] [place] [address] Care Team Providers Care Fish Cutting Machine Operator Name Role Phone Natan Sandoval Primary Care Physician [phone] [facility] Date(s): 12/07/22 - 12/07/22 [facility] [address] [place] [address] Discharge Disposition: Home or Self Care Attending Physician: Inessa Garcia MD Admitting Physician: Inessa Garcia MD Allergies, Adverse Reactions, Alerts Substance Reaction Severity Status BEE VENOM PROTEIN (HONEY BEE) Unknown Active INSECT VENOM Unknown Active penicillins Unknown Active Assessment and Plan Extracted from: Title:Clinical Document Author:Ac Doyle Date:12/07/22 Diagnosis: Dizziness Comment: Diagnosis: Dysuria Comment: Diagnosis: Throat pain - Adult Comment: Future Appointments Future Scheduled Tests Laboratory* Semen Analysis Post Vasectomy 06/25/22 Functional Status 12/07/22 Other exposure to Infectious Disease Non e [...] Once, # 1 EA, 0 Refill(s), Pharmacy: [facility], 175.28, cm, 11/17/21 8:57:00 EDT, Height/Length Dosing, 168.28, kg, 11/17/21 8:57:00 EDT, Weight Dosing Start Date: 12/24/21 Status: Ordered Gas-X Prevention 600 units oral capsule 600 units 1 cap, Oral, BID, PRN as needed for gas, # 60 cap, 1 Refill(s), Pharmacy: [facility], 178, cm, 01/15/22 8:47:00 EDT, Height/Length Dosing, 160, kg, 01/15/22 8:47:00 EDT, Weight Dosing Start Date: 09/24/22 Status: Ordered ibuprofen 600 mg oral tablet See Instructions Start Date: 11/21/21 Status: Ordered Lexapro 10 mg oral tablet 10 mg = 1 tab, Oral, Daily, # 90 tab, 3 Refill(s), [facility], 178, cm, 01/15/22 8:47:00 EDT, Height/Length Dosing, 160, kg, 01/15/22 8:47:00 EDT, Weight Dosing Start Date: 09/24/22 Status: Ordered pantoprazole 40 mg oral delayed release tablet 40 mg = 1 tab, Oral, BID, Dose increase 12/02/22, # 60 tab, 1 Refill(s), [facility], [facility], cm, 09/28/22 16:21:00 EDT, Height/Length Dosing, 162.3, kg, 09/28/22 16:21:00 EDT, Weight Dosing Start Date: 12/02/22 Status: Ordered Rybelsus 14 mg oral tablet 14 mg = 1 tab, Oral, Daily, take at least 30 minutes before first food, beverage, or other oral meds, # 90 tab, 3 Refill(s), Pharmacy: [facility], 178, cm, 01/15/22 8:47:00 EDT, Height/Length Dosing, 160, kg, 01/15/22 8:47:00 EDT, Weight... Start Date: 09/24/22 Status: Ordered SEROquel 100 mg oral tablet 100 mg = 1 tab, Oral, every evening, # 90 tab, 3 Refill(s), Pharmacy: [facility], 178, cm, 01/15/22 8:47:00 EDT, Height/Length Dosing, 160, kg, 01/15/22 8:47:00 EDT, Weight Dosing Start Date: 09/24/22 Status: Ordered Mental Status 12/07/22 Eye Opening Response [place] Spontaneous ly Best Verbal Response [place] Oriented Best Motor Response [place] Obeys comman ds [place]en Coma Score 15 Problem List Condition Confirmation Course Effective Dates [...] Laboratory List Name Date CBC w/ Diff 12/07/22 Comprehensive Metabolic Panel (CMP) 12/07 Troponin-I 12/07/22 Urinalysis with Micro if Indicated and C ulture if Indicated 12/07/22 Automated Diff 12/07/22 Most recent to oldest [Reference Range]: 1 WBC [5.0-10.0 x10^3/mcL] 12.5 x10^3/mcL *HI* (12/07/22 4:53 PM) RBC [4.6-6.0 x10^6/mcL] 5.0 x10^6/mcL (12/07/22 4:53 PM) Neutro Auto [40.0-75.0 %] 72.3 % (12/07/22 4:53 PM) Lymph Auto [20.0-50.0 %] 20.2 % (12/07/22 4:53 PM) [place] Auto [2.0-15.0 %] 5.2 % (12/07/22 4:53 PM) Basophil Auto [0.0-1.0 %] 0.4 % (12/07/22 4:53 PM) BUN [7-18 mg/dL] 20 mg/dL *HI* (12/07/22 4:53 PM) UA Color Yellow (12/07/22 4:53 PM) Glucose Level [74-106 mg/dL] 108 mg/dL *HI* (12/07/22 4:53 PM) Potassium Level [3.5-5.1 mmol/L] 3.9 mmo l/L (12/07/22 4:53 PM) MCV [80.0-96.0 fL] 87.8 fL (12/07/22 4:53 PM) UA Urobilinogen Normal (12/07/22 4:53 PM) UA Bili [Negative] Negative (12/07/22 4:53 PM) UA Ketones Trace *ABN* (12/07/22 4:53 PM) AST [15-37 unit/L] 31 unit/L (12/07/22 4:53 PM) ALT [16-63 unit/L] 69 unit/L *HI* (12/07/22 4:53 PM) MCHC [31.0-35.0 g/dL] 33.2 g/dL (12/07/22 4:53 PM) Troponin-I [0.0-76.2 pg/mL] <5.0 pg/mL (12/07/22 4:53 PM) Sodium Level [136-145 mmol/L] 136 mmol/L (12/07/22 4:53 PM) UA Leuk Est Negative (12/07/22 4:53 PM) UA Nitrite Negative (12/07/22 4:53 PM) UA Glucose [Negative] Negative (12/07/22 4:53 PM) Hct [41.0-51.0 %] 44.0 % (12/07/22 4:53 PM) Calcium Level [8.5-10.1 mg/dL] 9.5 mg/dL (12/07/22 4:53 PM) Albumin Level [3.4-5.0 g/dL] 3.8 g/dL (12/07/22 4:53 PM) Protein Total [6.4-8.2 g/dL] 7.8 g/dL (12/07/22 4:53 PM) UA Protein Negative (12/07/22 4:53 PM) MCH [26.0-32.0 pg] 29.1 pg (12/07/22 4:53 PM) Neutro Absolute 9.0 x10^3/mcL *NA* (12/07/22 4:53 PM) Bilirubin Total [0.2-1.0 mg/dL] 0.5 mg/d L (12/07/22 4:53 PM) Hgb [14.0-18.0 g/dL] 14.6 g/dL (12/07/22 4:53 PM) Alk Phos [46-146 unit/L] 49 unit/L (12/07/22 4:53 PM) UA Blood Negative (12/07/22 4:53 PM) UA Spec Grav >=1.030 *NA* (12/07/22 4:53 PM) Platelets [130-450 x10^3/mcL] 331 x10^3/ mcL (12/07/22 4:53 PM) CO2 [21-32 mmol/L] 31 mmol/L (12/07/22 4:53 PM) UA pH 5.5 *NA* (12/07/22 4:53 PM) eGFR Non-AA [>=60] 90 (12/07/22 4:53 PM) eGFR AA [>=60] 90 (12/07/22 4:53 PM) UA Appear Clear (12/07/22 4:53 PM) Chloride Level [98-107 mmol/L] 99 mmol/L (12/07/22 4:53 PM) RDW-CV [11.5-14.5 %] 12.8 % (12/07/22 4:53 PM) Imm Gran Auto [0.0-0.9 %] 0.2 % (12/07/22 4:53 PM) Creatinine Level [0.70-1.30 mg/dL] 1.09 mg/dL (12/07/22 4:53 PM) Eos, Auto [1.0-6.0 %] 1.7 % (12/07/22 4:53 PM) Vital Signs Most recent to oldest [Reference Range]: 1 2 Temperature Temporal Artery [36-38 Deg C ] 36.5 Deg C (12/07/22 4:23 PM) Peripheral Pulse Rate [60-100 bpm] 78 bp m (12/07/22 6:41 PM) 68 bpm (12/07/22 4:23 PM) Respiratory Rate [12-24 br/min] 16 br/mi n (12/07/22 6:41 PM) 18 br/min (12/07/22 4:23 PM) Blood Pressure [90-140/60-90 mmHg] 125/8 0mmHg (12/07/22 6:41 PM) 129/87mmHg (12/07/22 4:23 PM) Weight Dosing 151.00 kg (12/07/22 4:45 PM) Weight Estimated 151.00 kg (12/07/22 4:23 PM) Height/Length Dosing 175.000 cm (12/07/22 4:45 PM) Height/Length Estimated 175.000 cm (12/07/22 4:23 PM) Social History Social History Type Response Tobacco Former tobacco user Tobacco Use:. Sex Male Emergency department Discharge instructions * Mendez Fields MD: PERFORM Event Display: ED Discharge Information Authored Date: [id number] DANIELITO WOODY :1985 Age:37 years Sex:Male Visit Date:12/07/2022 Primary Care Physician: Natan Sandoval MD Discharge Instructions We would like to thank you for allowing us to assist you with your healthcare needs. The following includes patient education materials and information regarding your injury/illness. Discharge Vitals Temperature??(Temporal Artery) 97.7 ??F (36.5 ??C) Heart Rate??(Peripheral) 68 Respiratory Rate?? 18 Blood Pressure?? 129/87?? Blood Pressure?? 116/67(Sitting)?? Blood Pressure?? 121/73(Standing)?? Blood Pressure?? 114/76(Supine)?? Height?? 68.90 in (175.000 cm) Weight??(Estimated) 332.96 lb (151.00 kg) Allergies BEE VENOM PROTEIN (HONEY BEE) INSECT VENOM penicillins What to Do Next Instructions from Your Care Team There is no evidence of??any active cardiac process??nor??infection of your urinary tract.?? I cannot??explain your dizziness it does not fit the pattern of any of the common causes of dizziness.?? Monitor your symptoms and follow-up with your primary care provider as needed. ?? Mendez Fields MD Upcoming Scheduled Appointments Friday 10:00 AM EDT [...] Much When Why Instructions Next Dose Unchanged [id number]-[id number] (Gas-X Prevention 600units oral capsule) 1 Capsules [...] 600 mg oral tablet) See instructions Unchanged nystatin topical (nystatin 100,000 units/ g topical powder) 1 Application Topical (on the skin) 2 times a day Lesion of penis Unchanged pantoprazole (pantoprazole 40 mg oral delayed [...] food, beverage, or other oral meds ?? Tests Performed Lab Test Name Test Result Date/Time WBC 12.5 x10^3/mcL 12/07/2022 16:53 EDT RBC 5.0 x10^6/mcL 12/07/2022 16:53 EDT Hgb 14.6 g/dL 12/07/2022 16:53 EDT Hct 44.0 % 12/07/2022 16:53 EDT MCV 87.8 fL 12/07/2022 16:53 EDT MCH 29.1 pg 12/07/2022 16:53 EDT MCHC 33.2 g/dL 12/07/2022 16:53 EDT RDW-CV 12.8 % 12/07/2022 16:53 EDT Platelets 331 x10^3/mcL 12/07/2022 16:53 EDT Neutro Auto 72.3 % 12/07/2022 16:53 EDT Lymph Auto 20.2 % 12/07/2022 16:53 EDT [place] Auto 5.2 % 12/07/2022 16:53 EDT Eos, Auto 1.7 % 12/07/2022 16:53 EDT Basophil Auto 0.4 % 12/07/2022 16:53 EDT Imm Gran Auto 0.2 % 12/07/2022 16:53 EDT Neutro Absolute 9.0 x10^3/mcL 12/07/2022 16:53 EDT Sodium Level 136 mmol/L 12/07/2022 16:53 EDT Potassium Level 3.9 mmol/L 12/07/2022 16:53 EDT Chloride Level 99 mmol/L 12/07/2022 16:53 EDT CO2 31 mmol/L 12/07/2022 16:53 EDT Alk Phos 49 unit/L 12/07/2022 16:53 EDT AST 31 unit/L 12/07/2022 16:53 EDT ALT 69 unit/L 12/07/2022 16:53 EDT BUN 20 mg/dL 12/07/2022 16:53 EDT Glucose Level 108 mg/dL 12/07/2022 16:53 EDT Creatinine Level 1.09 mg/dL 12/07/2022 16:53 EDT eGFR AA 90 12/07/2022 16:53 EDT eGFR Non-AA 90 12/07/2022 16:53 EDT Calcium Level 9.5 mg/dL 12/07/2022 16:53 EDT Protein Total 7.8 g/dL 12/07/2022 16:53 EDT Albumin Level 3.8 g/dL 12/07/2022 16:53 EDT Bilirubin Total 0.5 mg/dL 12/07/2022 16:53 EDT Troponin-I <5.0 pg/mL 12/07/2022 16:53 EDT UA Color YELLOW. 12/07/2022 16:53 EDT UA Appear CLEAR. 12/07/2022 16:53 EDT UA Glucose NEGATIVE 12/07/2022 16:53 EDT UA Bili NEGATIVE 12/07/2022 16:53 EDT UA Ketones TRACE. 12/07/2022 16:53 EDT UA Spec Grav >=1.030 12/07/2022 16:53 EDT UA Blood NEGATIVE 12/07/2022 16:53 EDT UA pH 5.5 12/07/2022 16:53 EDT UA Protein NEGATIVE 12/07/2022 16:53 EDT UA Urobilinogen 0.2 Uro 12/07/2022 16:53 EDT UA Nitrite NEGATIVE 12/07/2022 16:53 EDT UA Leuk Est NEGATIVE 12/07/2022 16:53 EDT Patient/Tire Molder Signature Patient Name:DANIELITO WOODY I have received this information and my questions have been answered. Patient/Tire Molder Name: Patient/Tire Molder Signature: Relationship to Patient: Witness Name/Signature: Date: Electronically Signed on: 12/07/2022 18:35 EDTSigned by:[facility] Discharge summary * Ac Doyle: PERFORM Event Display: Discharge Note Authored Date: [id number] * Ac Doyle: PERFORM Event Display: Discharge Note Authored Date: Diagnosis: Dizziness Comment: Diagnosis: Dysuria Comment: Diagnosis: Throat pain - Adult Comment: Electronically Signed on 12/07/22 06:48 PM Ac Doyle Patient Care team information Care Team Personnel Name: Natan Sandoval MD Position: Physician Member Role: Informed Provider Address: Address[facility] [place] [id number] Name: Lori Carrillo Position: Nurse Member Role: ED Nurse Name: Mendez Fields MD Position: Physician Member Role: ED Physician Address: Address: [address] [place] [id number] Care Team Related Persons Name: JOSE WEBB
[2023-05-20 21:54] LABS: TSH 2.36 uIU/mL (0.36-3.74)
== END 2023-05-20 20:35 | disposition home or self-care (01) ==
LOC: NCHCN 20:34
PROVIDERS: PCP Family Medicine; Visit Provider Nurse Practitioner Family
DX: R63.4 Abnormal weight loss (principal)
CPT/HCPCS: 84443

== ENCOUNTER 2024-07-21 03:37 | Outpatient (CLI) | payer MEDICARE, SELFPAY ==
--- NOTE | 2024-07-21 | DI.CT_ITS ---
Exam(s) CT CHEST W EXAM: CT CHEST W CLINICAL HISTORY: Thyroid malignant neoplasm, C73, poorly differentiated thyroid CA, assess TECHNIQUE: Imaging Protocol: Axial computed tomography images with coronal and sagittal reformatted images were created and reviewed. Computer aided detection (CAD) was utilized. CONTRAST MATERIAL: Intravenous: Omnipaque 350Contrast volume:70 mL. COMPARISON: No exams were available for comparison FINDINGS: Tracheobronchial tree: Patent where visualized. No evidence of bronchiectasis. Pulmonary parenchyma: No consolidation or dominant measurable mass. No architectural distortion. Mediastinum and Esme: No dominant adenopathy or fluid collection. The esophagus is unremarkable. Thyroid gland: No definite discrete mass is seen. There are there is a calcification seen in the lef t thyroid gland. Pleura: No effusion or pneumothorax. Heart: The heart is not dilated. No coronary artery calcifications are seen. No pericardial effusion. Aorta: Thoracic aorta non-dilated. Pulmonary arteries: Due to the timing of the bolus, pulmonary artery opacification is suboptimal for evaluation of pulmonary emboli. Upper abdomen: There is heterogeneous enhancement of the spleen which may be due to the timing of th e bolus. Follow-up as clinically appropriate. Lymph nodes: There is a 1.8 cm lymph node in the superior mediastinum. No axillary or supraclavicula r adenopathy is appreciated. Bones: Within normal limits for the patient's age. No aggressive osseous lesions. Soft tissues: Unremarkable. IMPRESSION: 1. 1.8 cm superior mediastinal lymph node. 2. No evidence of pulmonary nodules. 3. The visualized thyroid gland appears grossly unremarkable. Correlation with thyroid ultrasound is recommended. RADIATION DOSE DELIVERED: 517.73mGy.cm Total DLP DATA REPOSITORY: All CT scans at this facility are submitted to the National Radiology Data Registry (NRDR) Dose Index Registry (DIR) with the [employer] (ACR). RADIATION OPTIMIZATION: All CT scans at this facility use at least one of these dose optimization te chniques: automated exposure control; mA and/or kV adjustment per patient size (includes targeted exa ms where dose is matched to clinical indication); or iterative reconstruction.
[2024-07-21 10:56] LABS: CREATININE 0.9 mg/dL (0.70-1.30); Estimated GFR 111.42 (mL/min/1.73m2)
[2024-07-21] MEDS: Normal Saline - Diluent 50 ML VIAL IJ (11:08)
[2024-07-21] MEDS: Omnipaque 350 MG/ML 100 ML BTL 70 ML IJ (11:10)
[2024-07-22 18:12] LABS: Thyroglobulin Antibody <1.8 IU/mL (<1.8); Thyroglobulin Tumor Marker <0.1 ng/mL
== END 2024-07-21 03:57 ==
PROVIDERS: PCP Family Medicine; Visit Provider Preventive Medicine Undersea and Hyperbaric Medicine
DX: C73 Malignant neoplasm of thyroid gland (principal)
CPT/HCPCS: 71260; 82565; 84432; 84443; 86800; J3490

== ENCOUNTER 2024-11-17 02:52 | Outpatient (CLI) | payer MEDICARE, SELFPAY ==
[2024-11-17] MEDS: Barium Sulfate 700 MG TAB PO (14:36)
[2024-11-17] MEDS: Barium Sulfate Oral Paste 40% W/V 230 ML TUBE PO (14:37)
[2024-11-17] MEDS: Barium Sulfate 81% w/w for Oral Suspension 148 GM BTL PO (14:38)
[2024-11-17] MEDS: Barium Sulfate 40% W/V 240 ML BTL PO (14:39)
--- NOTE | 2024-11-17 14:40 | DI.RAD_ITS ---
Exam(s) RF MODIFIED SPEECH BA SWALLOW EXAM: RF MODIFIED SPEECH BA SWALLOW CLINICAL HISTORY: Globus pharyngeus and worsening GERD TECHNIQUE: Modified barium swallow was performed in conjunction with speech pathology. CONTRAST MATERIAL: Multiple consistencies of oral barium contrast were administered. COMPARISON: No exams were available for comparison FINDINGS: There is no evidence of aspiration or penetration with any consistency. Speech pathology report to follow. IMPRESSION: No evidence of aspiration or penetration. RADIATION DOSE DELIVERED: cheli [place]=20.3 mGy
--- NOTE | 2024-11-17 15:20 | ST.MBS ---
Date of Service Date of service: 11/17/24 Time of Service: 15:20 Modified Barium Swallow Study Findings: Modified Barium Swallow Study (MBSS) Speech Language Pathology Report Patient referred for VFSE/MBSS from Dr. Jeffery Palomino ([facility]) given globus pharyngeus and worsening GERD sx. ? need for repeat EGD. HPI & Patient report of function: Patient is a 39 year old M with PMHx Gerd, eTOH, tobacco use, obesity, presenting upon recommendation of surgeon who recently completed EGD due to worsening upper GI symptoms, without any notable findings. Regular barium swallow study in 2022 was consistent with spontaneous gastro-esophageal reflux. He also had another EGD in 2020 which found esophagitis, gastritis, and a small hiatal hernia. Subjective: Patient reports his primarily difficulty is feeling as though his throat is closing in on him when swallowing. He is unable to provide further details. He appears to be falling asleep repeatedly during interview and at times struggles with instructions. He denies specific difficulties with solids vs liquid, feels this can happen to him any time. Denies pna hx, denies true choking episodes requiring heimlich maneuver. Denies sensation of aspiration, describes it more as a sensation of throat closing/difficulty proceeding with swallow. IMPRESSIONS: Swallow safety is preserved; swallow efficiency is preserved. Overall oral-pharyngeal swallow function appears safe/WFL. This is not a dedicated esophageal exam, findings on esophageal function are only for limited trials/quantities and may not be comprehensive. Oral pharyngeal and esophageal swallow function as observed during exam trials characterized by the physiologic deficits as outlined below in objective section. There was no penetration or aspiration into the airway and no significant pharyngeal residue, no notable crico-pharyngeal findings, and no observable persistent esophageal stasis. Suspect patient may experience primarily sensori-motor dysphagia in setting of chronic GERD history, possibly resulting hypersensitivity during the swallow, globus sensation, and possible muscle tension component resulting from chronic hypersensitivity. This is consistent with reported history of belching, spontaneous gastroesophageal reflux, and hiatal hernia presence noted on prior exams Recommend to consider addressing lifestyle changes for prolonged GERD management, and other medical management options (e.g., medication, hernia repair). If no sustained improvement with symptoms with other treatments, he may benefit from speech therapy for additional help managing tension and reflux. Patient appears to be at low risk for potential aspiration PNA and/or pulmonary compromise and low risk for malnutrition/dehydration. Diet modification is not indicated; non-oral nutrition is not indicated. Swallow prognosis is good-fair given: Positive prognostic factors: Age, Severity Negative prognostic factors: Lifestyle factors RECOMMENDATIONS: Diet Texture Recommendation:? IDDSI LEVEL SOLIDS 7-Regular Solids LIQUIDS 0-Thin Liquids Diet texture modification is per patient's preference; please adjust diet textures at patient's discretion & collaboration with care team. MEDICATIONS Whole, as tolerated Do not alter medications (e.g., cut)? without advice from your MD or pharmacist. Risk Management Strategies:? Behavioral reflux precautions, including upright position during + 90 mins after meals. Small bites, approx [id number] Slow pace of eating/drinking Smaller/more frequent meals throughout the day. Avoid food/drink within 2 hours before bedtime. Sleep with head of bed elevated to reduce nighttime reflux. Control risk factors for aspiration pneumonia via (a) thorough oral hygiene & (b) maintaining physical mobility as tolerated PLAN: Please re-refer to PROGRAM MGR for treatment as indicated per recommendations above ----- OBJECTIVE Oral-motor exam was largely unremarkable. Videofluoroscopic Swallow Evaluation (VFSE/MBSS) was conducted in the lateral and [id number] projection by Speech-Language Pathologist, in collaboration with Radiologist, to evaluate oropharyngeal swallow function. Anatomic view under fluoroscopy: WFL PO Barium Contrast Trials Oral barium water-soluble contrast was administered as follows: IDDSI Level 0 Varibar thin liquid (40% w/v) IDDSI Level 2 Varibar nectar thick/mildly thick liquid (40% w/v) IDDSI Level 4 Varibar pudding/pureed/extremely thick (40% w/v) IDDSI Level 7 Regular Solid: 1/2 ivania cracker coated in 3 mL Varibar pudding 13 mm barium tablet taken with Water. MBSImP Component Scores: COMPONENT Scale SCORE 1 Lip closure (0-4) 4 Resulted in escape beyond mid-chin 2 Hold Position (0-3) 0 Maintained a cohesive bolus between tongue to palatal seal 3 Bolus Preparation (0-4) 0 Resulted in timely and efficient chewing and mashing 4 Bolus Transport (0-4) 0 Was with brisk tongue motion 5 Oral Residue (0-4) 1 Was a trace, lining oral structures 6 Swallow Initiation (0-4) 2 Occurred as bolus head at posterior laryngeal surface of epiglottis 7 Soft Palate Elevation (0-4) 0 Resulted in no bolus between soft palate and the pharyngeal wall 8 Laryngeal Elevation (0-3) 0 Demonstrated complete superior movement of thyroid cartilage with complete approximation of arytenoids to epiglottic petiole 9 Anterior Hyoid Motion (0-2) 0 Demonstrated complete anterior movement 10 Epiglottic Movement (0-2) 0 Resulted in complete inversion 11 Laryngeal Closure (0-2) 0 Was complete with no air or contrast in laryngeal vestibule 12 Pharyngeal Stripping Wave (0-2) 0 Was present and complete 13 Pharyngeal Contraction (0-3) 0 Was complete 14 PES Opening (0-3) 0 Was completely distended and complete duration with no obstruction of flow 15 Tongue Base Retraction (0-4) 0 Allowed no contrast between the tongue base and posterior pharyngeal wall 16 Pharyngeal Residue (0-4) 0 Was not present. There was complete pharyngeal clearance 17 Esophageal Clearance (0-4) 0 Was complete, with only a coating of contrast, if any Results: COMPONENT Scale SCORE 1 Oral Score (0-18) 2 2 Pharyngeal Score (0-29) 0 3 Esophageal Score (0-4) 0 Penetration-Aspiration Scale: COMPONENT Scale SCORE 1 Thin liquid (1-8) 1 Contrast did not enter the airway 2 [place] thick (1-8) 1 Contrast did not enter the airway 3 Honey thick (1-8) NA 4 Pudding thick (1-8) 1 Contrast did not enter the airway 5 Cookie (1-8) 1 Contrast did not enter the airway Deja Pharyngeal Residue Severity Rating Scale (YPRS) (Deyvi, et al, 2015) Vallecula Residue Severity II Trace 1-5% Trace coating of the mucosa Pyriform Sinus Residue Severity I None 0% No residue Observations not captured in quantitative data: Patient with anterior loss when transferring from spoon to mouth and cup to mouth (X1 each) Trialed Compensatory Strategies & Outcome: n/a Thank you for allowing us to take part in this patient's care. Please feel free to contact the [facility] Speech Language Pathology Department with any questions/concerns.
== END 2024-11-17 03:12 ==
LOC: DI 02:52
PROVIDERS: PCP Family Medicine; Visit Provider Surgery
DX: C73 Malignant neoplasm of thyroid gland (principal)
CPT/HCPCS: 92526; 74221